=== PATIENT | female | born 1960 | race Caucasian/White ===

== ENCOUNTER 2019-10-25 07:43 | Outpatient (CLI) | payer OTHER, SELFPAY ==
--- NOTE | ~2019-10-25 | DEXA_ITS ---
Bone Density Report Name: Ayana Pennington Age: 59 Sex: Female Ethnicity: White Date of : 1960 Indication: osteopenia; Referring Provider: Whitney Ardon Study: Bone densitometry was performed. Exam Date: October 25, 2019 Accession number: [id number] Bone Density: Region BMD T-score Z-score Classification AP Spine (L1-L4) 0.788 -2.4 -0.9 Osteopenia Femoral Neck (Left) 0.808 -0.4 1.0 Normal Total Hip (Left) 0.864 -0.6 0.4 Normal World Health Organization criteria for BMD impression classify patients as: Normal (T-score at or above -1.0), Osteopenia (T-score between -1.0 and -2.5), or Osteoporosis (T-score at or below -2.5). 10-year Fracture Risk(1): Major Osteoporotic Fracture 5.6% Hip Fracture 0.2% Reported Risk Factors: [place] (), Neck BMD=0.808, BMI=45.9 Input outside FRAX(R) limits. Adjusted to:Boijny=162 kg (1) FRAX(R) Version 3.08. Fracture probability calculated for an untreated patient. Fracture probability may be lower if the patient has received treatment. Previous Exams: Region Exam Age BMD T-score BMD Change BMD Change Date g/cm2 vs Baseline vs Previous AP Spine(L1-L4) 10/25/2019 59 0.788 -2.4 -0.041(-5.0%)# -0.041(-5.0%)# 02/23/2008 47 0.829 -2.0 Total Hip(Left) 10/25/2019 59 0.864 -0.6 -0.038(-4.2%)# -0.038(-4.2%)# 02/23/2008 47 0.901 -0.3 *Denotes significance at 95% confidence level, LSC for AP Spine = 0.022 g/cm2, LSC for Total Hip = 0.027 g/cm2 Clinical Information Provided by Patient: Patient maximum height was 65 Menopause Age: 46 No regular weight bearing exercise Drinks caffeinated beverages Onset of menses at age 11 Number of children 2 Impression: The patient has low bone mass, based on the Total Spine T-score. The patient has an estimated ten-year risk of hip fracture of 0.2% and an estimated ten-year risk of major fracture of 5.6%, based on the WHO FRAX algorithm. No significant bone loss was observed. Discussion: BONE DENSITY IS LOW AT ONE OR MORE SKELETAL SITES. This patient's lowest T-score is low at one or more skeletal sites. It meets the World Health Organization's (WHO) criteria for ?low bone mass? (T-score between -1.0 and -2.5). The patient's 10-year risk of fracture as calculated by FRAX is less than the threshold where pharmacological therapy is recommended by the National Osteoporosis Foundation (NOF). However, all treatment decisions require clinical judgment and consideration of individual patient factors, including patient preferences, co
--- NOTE | ~2019-10-25 | MM_ITS ---
EXAMINATION: MM screening [facility] m HISTORY: Screening mammogram TECHNIQUE: Craniocaudal and mediolateral oblique 3-D tomosynthesis images were obtained and synthetic 2-D images were generated. CAD analysis was submitted and interpreted. COMPARISON: 10/11/2018, 10/27/2017, 04/18/2016 BREAST PARENCHYMAL COMPOSITION: The breasts are almost entirely fatty. FINDINGS: There is a chronic and unchanged asymmetry in the middle third of the left breast on the cr aniocaudal view. There is no evidence of suspicious mass, calcification, or architectural distortion to suggest malignancy in either breast. There has been no suspicious interval change. IMPRESSION: 1. No mammographic evidence of malignancy. 2. Recommend routine screening mammography in one year. BI-RADS Category 2: Benign finding(s). Reviewed, dictated and finalized at location A. [employer]
== END 2019-10-25 07:44 | disposition home or self-care (01) ==
PROVIDERS: PCP Family Medicine; Visit Provider Family Medicine
DX: Z12.31 Encounter for screening mammogram for malignant neoplasm of breast (principal); Z78.0 Asymptomatic menopausal state; M85.88 Other specified disorders of bone density and structure, other site
CPT/HCPCS: 77063; 77067; 77080

== ENCOUNTER 2020-09-12 12:50 | Outpatient (NON) | payer OTHER, SELFPAY ==
[2020-09-12 23:32] LABS: SARS-CoV-2 RNA PCR Negative
== END 2020-09-12 12:51 ==
LOC: ANHCOVIDDT 12:51
PROVIDERS: PCP Family Medicine; Visit Provider Family Medicine
DX: R05 Cough (principal); Z20.822 Contact with and (suspected) exposure to COVID-19
CPT/HCPCS: C9803; U0003

== ENCOUNTER 2022-01-31 13:43 | Outpatient (CLI) | payer OTHER, SELFPAY ==
--- NOTE | ~2022-01-31 | DEXA_ITS ---
Bone Density Report Name: DE MCDANIELS Age: 61 Sex: Female Ethnicity: White Date of : 1960 Indication: osteopenia; height loss; postmenopausal Referring Provider: PATT MAZARIEGOS Study: Bone densitometry was performed. Exam Date: January 31, 2022 Accession number: [id number] Bone Density: Region BMD T-score Z-score Classification AP Spine(L1-L4) 0.877 -1.5 0.1 Osteopenia Femoral Neck (Left) 0.674 -1.6 -0.1 Osteopenia Total Hip (Left) 0.735 -1.7 -0.6 Osteopenia World Health Organization criteria for BMD impression classify patients as: Normal (T-score at or above -1.0), Osteopenia (T-score between -1.0 and -2.5), or Osteoporosis (T-score at or below -2.5). 10-year Fracture Risk(1): Major Osteoporotic Fracture 7.9% Hip Fracture 0.7% Reported Risk Factors: [place] (), Neck BMD=0.674, BMI=36.7 (1) FRAX(R) Version 3.08. Fracture probability calculated for an untreated patient. Fracture probability may be lower if the patient has received treatment. Previous Exams: Region Exam Age BMD T-score BMD Change BMD Change Date g/cm2 vs Baseline vs Previous AP Spine (L1-L4) 01/31/2022 61 0.877 -1.5 0.090 (11.4%)# 0.090 (11.4%)# 10/25/2019 59 0.788 -2.4 Total Hip(Left) 01/31/2022 61 0.735 -1.7 -0.128 (-14.9% -0.128 (-14.9% 10/25/2019 59 0.864 -0.6 *Denotes significance at 95% confidence level, LSC for AP Spine = 0.022 g/cm2, LSC for Total Hip = 0.027 g/cm2 # Denotes dissimilar scan types or analysis methods Clinical Information Provided by Patient: Has used the following medications: Vitamin D Patient maximum height was 65 Menopause Age: 46 Onset of menses at age 11 Number of children 2 Impression: The patient has low bone mass, based on the Left Total Hip T-score. The patient has an estimated ten-year risk of hip fracture of 0.7% and an estimated ten-year risk of major fracture of 7.9%, based on the WHO FRAX algorithm. The BMD for the Total Hip(Left) decreased, changing by -14.9% since the last DXA exam. Discussion: BONE DENSITY IS LOW AT ONE OR MORE SKELETAL SITES. This patient's lowest T-score is low at one or more skeletal sites. It meets the World Health Organization's (WHO) criteria for ?low bone mass? (T-score between -1.0 and -2.5). The patient's 10-year risk of fracture as calculated by FRAX is less than the threshold where pharmacological therapy is recommended by the National Osteoporosis Foundation (NOF). However, all treatment decisions require clinical judgment and consider
--- NOTE | ~2022-01-31 | MM_ITS ---
EXAMINATION: MM screening [facility] HISTORY: Screening mammogram TECHNIQUE: Craniocaudal and mediolateral oblique 3-D tomosynthesis images were obtained and synthetic 2-D images were generated. CAD analysis was submitted and interpreted. COMPARISON: , 10/2018, bilateral screening mammogram examinations BREAST PARENCHYMAL COMPOSITION: The breasts are almost entirely fatty. FINDINGS: There is no evidence of suspicious mass, calcification, or architectural distortion to sugg est malignancy in either breast. There has been no suspicious interval change. IMPRESSION: 1. No mammographic evidence of malignancy. 2. Recommend routine screening mammography in one year. BI-RADS Category 1: Negative Reviewed, dictated and finalized at location A.
== END 2022-01-31 13:44 | disposition home or self-care (01) ==
PROVIDERS: PCP Family Medicine; Visit Provider Obstetrics & Gynecology Gynecology
DX: Z12.31 Encounter for screening mammogram for malignant neoplasm of breast (principal); Z78.0 Asymptomatic menopausal state; M85.88 Other specified disorders of bone density and structure, other site; M85.852 Other specified disorders of bone density and structure, left thigh
CPT/HCPCS: 77063; 77067; 77080

== ENCOUNTER 2022-04-02 08:57 | Outpatient (CLI) | payer OTHER, SELFPAY ==
[2022-04-02 20:07] LABS: Alanine Aminotransferase 40 U/L (6-35); Albumin Level 4.5 g/dL (3.5-5.1); Alkaline Phosphatase 69 U/L (38-126); Anion Gap 8 mmol/L (8-16); Aspartate Amino Transferase 53 U/L (14-36); Bilirubin,Total 0.7 mg/dL (0.2-1.3); Blood Urea Nitrogen 22 mg/dL (7-17); Calcium 9.3 mg/dL (8.4-10.2); Carbon Dioxide 31 mmol/L (22-30); Chloride 103 mmol/L (98-107); Estimated Glomerular Filt Rate > 60; Glucose 91 mg/dL (65-110); Potassium 4.5 mmol/L (3.4-5.0); Sodium 142 mmol/L (137-145)
[2022-04-02 20:56] LABS: Hemoglobin A1C 5.5 % (<5.7)
== END 2022-04-02 08:58 | disposition home or self-care (01) ==
LOC: ANHGOSHLAB 08:59
PROVIDERS: PCP Family Medicine; Visit Provider Family Medicine
DX: R73.03 Prediabetes (principal); I10 Essential (primary) hypertension
CPT/HCPCS: 36415; 80053; 83036

== ENCOUNTER 2022-05-13 07:57 | Outpatient (CLI) | payer OTHER, SELFPAY ==
--- NOTE | 2022-05-13 08:54 | ECG_ITS ---
Measurements Intervals [place] Rate: 52 P: -4 SD: 133 QRS: 27 QRSD: 97 T: 29 QT: 404 QTc: 376 Interpretive Statements SINUS BRADYCARDIA BASELINE ARTIFACT- I, II, III, AVR, AVL, AVF BORDERLINE ECG COMPARED TO ECG 11/30/2018 10:46:36 SINUS BRADYCARDIA NOW PRESENT Electronically Signed On 05-13-2022 9:29:47 CDT by Madi Rivera D.O.
[2022-05-13 09:31] LABS: Basophils Percent Auto 0.6 % (0.2-1.2); Eosinophils Absolute Auto 0.2 K/mm3 (0-0.3); Eosinophils Percent Auto 2.8 % (0-4.4); Hematocrit 45.9 % (37.0-47.0); Hemoglobin 14.4 g/dL (12.0-15.0); Immature Granulocyte Absolute 0.02 K/mm3 (0.00-0.031); Immature Granulocyte Percent A 0.3 % (0-0.5); Lymphocytes Absolute Auto 1.97 K/mm3 (0.9-3.2); Lymphocytes Percent Auto 28.7 % (18.3-44.2); Mean Corpuscular HGB Conc 31.4 g/dl (32-36); Mean Corpuscular Hemoglobin 26.5 pg (26-34); Mean Corpuscular Volume 84.5 fl (80-100); Mean Platelet Volume 10.2 fl (7.4-10.4); Monocytes Absolute Auto 0.5 K/mm3 (0.1-0.6); Monocytes Percent Auto 6.7 % (2.6-8.5); Neutrophils Absolute Auto 4.2 K/mm3 (1.3-6.7); Neutrophils Percent Auto 60.9 % (45.5-73.1); Platelet Count Result 154 k/mm3 (150-375); Red Blood Count 5.43 M/mm3 (4.2-5.4); Red Cell Distribution Width 17.5 % (11.5-14.5); White Blood Count 6.9 K/mm3 (4.5-10.0)
[2022-05-13 09:34] LABS: Appearance Urine Clear (Clear); Bilirubin Urine Negative (Negative); Blood Urine Trace-lysed (Negative); Color Urine Yellow (Yellow); Glucose Urine UA Negative (Negative); Ketones Urine Negative (Negative); Leukocyte Esterase Ur Negative LEU/UL (Negative); Nitrate Urine Negative (Negative); Protein Urine Negative (Negative); Specific Grav Ur 1.015 (1.001-1.035); Urobilinogen Urine 0.2 mg/dL (<2.0)
[2022-05-13 09:42] LABS: Urine Cotinine NEGATIVE
[2022-05-13 09:54] LABS: Add Urine Microscopic? YES
[2022-05-13 09:54] LABS: Partial Thromboplastin Time 27.4 SECONDS (22.3-36.8); Prothrombin Time 13.1 Seconds (11.1-14.7)
[2022-05-13 09:55] LABS: RBC Urine 0-2 /hpf (0-2); Squamous Epithelial Cell Urine Few /hpf (Few)
== END 2022-05-13 07:58 | disposition home or self-care (01) ==
LOC: ANHSURGERY 08:06
PROVIDERS: PCP Family Medicine; Visit Provider Orthopaedic Surgery
DX: Z01.818 Encounter for other preprocedural examination (principal); M16.12 Unilateral primary osteoarthritis, left hip; R00.1 Bradycardia, unspecified
CPT/HCPCS: 80307; 81001; 85025; 85610; 85730; 86850; 86900; 86901; 87081; 93005

== ENCOUNTER 2022-05-21 01:05 | Day surgery (SDC) | payer OTHER, SELFPAY ==
--- NOTE | 2022-05-13 08:03 | PC.NURSE ---
PRE-OP INSTRUCTIONS, PLEASE READ CAREFULLY Report to the Outpatient Waiting Room, entrance under the green pavilion located off [facility], at time _0600_ on date _05/21/22_. OR Time: _0730_. PACK A SMALL OVERNIGHT BAG AND LEAVE IN THE CAR ALONG WITH YOUR WALKER - A mask is required within the hospital. - You and your visitor will be asked to self-screen and do not enter if you have any COVID symptoms. - Only one visitor and NO children visitors are allowed at this time. - The patient visitor is requested to leave or wait in car when not with patient due to restrictions. - VISITING HOURS 10AM-8PM, PARK IN FRONT PARKING LOT AND USE MAIN ENTRANCE Patients may have clear liquids (water, carbonated beverages, clear teas, apple juice) until 3 hours prior to surgery (0430 AM) with a maximum of 20 ounces. - No food from midnight until time of surgery Take the following medications with a SIP of water the morning of surgery: _METOPROLOL_ Medications to discontinue per ANESTHESIA - _ MULTIVITAMIN, VITAMIN D3 & TURMERIC ROOT 3 DAYS PRIOR TO SURGERY, Date to take last dose 05/17/22_ Please no make-up, nail setswana, hairspray, perfume, deodorant, or body powder the day of surgery. No jewelry (including any body piercings) or valuables the day of surgery, leave them at home. Please take a shower or bath the night before, or the morning of, surgery with an antibacterial soap. Wear comfortable, loose fitting clothing. - Jewelry must be removed prior to entering the operating room. Rings and piercings that are not removed may be cut off. - The hospital will not accept responsibility for valuables. - Please leave all valuables, including medications, at home the day of surgery. If you are going home after surgery, a licensed restaurant delivery driver must drive you home. - NO public transportation without another adult. - We recommend that an adult stay with you for 24 hours following discharge. - We also recommend that you do not drive, make important decision, drink alcoholic beverages, or take any drugs that were not prescribed by your health care provider for at least 24 hours after your discharge time. Follow any additional instructions given to you from your surgeon. If you or anyone in your household have experienced Covid symptoms in the past week, please notify your surgeon or the nurse liaison at the phone number below for possible testing. Instructions given to ___PT and asked if any additional questions and then verbalized understanding. Patient advised to call surgeon office or pre surgery nurse liaison [phone] if any additional questions.
[2022-05-13 08:25] VITALS: BP 134/72; PULSE 54; RESP 18; TEMP 36.2; O2SAT 96; BMI 34.7
--- NOTE | 2022-05-20 12:42 | WPDANESEPPF ---
Anes - Initial Pre Proc Eval Procedure: Operation Date: 05/21/22 07:30 Proposed Procedures p Left Total Hip Arthroplasty - Alfie Rodriguez MD Date/Time: 05/20/22 12:42 Surgeon: Alfie Rodriguez MD Pre Op Diagnosis: Lt Hip DJD Patient Data Age: 61 Gender: F Height: 1.63 m Weight: 91.6 kg Last Vital Signs Temp 36.2 C L 05/13/22 08:25 Pulse 54 L 05/13/22 08:25 Resp 18 05/13/22 08:25 BP 134/72 05/13/22 08:25 Pulse Ox 96 05/13/22 08:25 O2 Del Method Room Air 05/13/22 08:25 Allergies Allergy/AdvReac Type Severity Reaction Status Date / Time No Known Allergies Allergy Verified 05/13/22 08:21 Home Medications Medication Instructions Recorded Confirmed Type multivit with 1 tablet PO DAILY 09/26/19 05/13/22 History tcawyaoe-kebk-RU-lutein 8 mg iron-400 mcg-300 mcg tablet (Centrum Silver Women) aspirin 81 mg tablet,delayed 81 mg PO DAILY 09/12/20 05/13/22 History release cholecalciferol (vitamin D3) 50 50 mcg PO QAM 09/12/20 05/13/22 History mcg (2,000 unit) capsule turmeric root extract 500 mg 500 mg PO DAILY 10/02/20 05/13/22 History capsule rosuvastatin 40 mg tablet 40 mg PO QHS 10/03/21 05/13/22 History metoprolol succinate 50 mg 75 mg PO DAILY #135 tabs 12/02/21 05/13/22 Rx tablet,extended release 24 hr icosapent ethyl 1 gram capsule 2 g PO BID #360 caps 12/16/21 05/13/22 Rx (Vascepa) alendronate 70 mg tablet 70 mg PO WEEKLY 04/02/22 05/13/22 History Patient hx anesthesia problems: none Family hx anesthesia problems: none Results Review: All pre-operative results and documents have been reviewed as part of the pre-operative evaluation. [facility] Past Medical History Medical History (Updated 05/13/22 @ 14:02 by Renee Ferrell, RT(R)) Abnormality of heart beat CAD in [place] artery Decreased hearing of left ear Dyslipidemia Ear pain Edema of both lower legs due to peripheral venous insufficiency Essential (primary) hypertension GERD without esophagitis Hearing loss High cholesterol History of adverse reaction to anesthesia Hypertension TRINI (obstructive sleep apnea) Osteopenia PVC (premature ventricular contraction) Raynaud's disease without gangrene Unspecified osteoarthritis, unspecified site Vitamin D deficiency Wears glasses Surgical History Surgical History (Updated 05/13/22 @ 14:02 by Renee Ferrell RT(R)) History of ear surgery History of tonsillectomy History of total right hip replacement (~12/2018) History of tympanoplasty (~2010) Left Family History Family History (Updated 05/13/22 @ 14:02 by Renee Ferrell RT(R)) Father Hypertension Family history of arthritis Other High cholesterol Social History Social History (Updated 05/13/22 @ 14:03 by Renee Ferrell RT(R)) Smoking packs per day: 1.5 Smoking cigarettes per day: 30.0 Years smoked: 15 Smoking pack-years: 22.50 Smoking status: Former smoker Tobacco type: cigarettes Second hand tobacco smoke exposure: No Smoking end date: 01/06/88 Additional smoking assessment comments: PT DENIES ALL FORMS OF TABACCO USE Alcohol intake: never Alcohol use details: STATES MAYBE 1-3 GLASSES WINE A YEAR Substance use: never Substance use type: does not use Living arrangements: with family Additional living arrangements comments: PT'S MOTHER AND DAUGHTER LIVES WITH HER Gender identity (if verbalized by the patient): Female Spiritual care concerns: No Anes - Eval Final PreProcedure Day of Procedure 05/20/22 12:42 Patient weight: obese Heart: regular rate and rhythm Lungs: clear to auscultation Airway: Mallampati scale class III and special considerations (small chin) Neurological: alert and oriented Last oral intake: >/= 8 hours ASA classification: III Emergent: no Anesthetic plan: proceed Anesthesia type and monitoring: general ETT and standard monitoring Results Review: All pre-operative results and
[2022-05-21] VITALS (13 sets, daily range): BP systolic 99–131; BP diastolic 49–79; PULSE 45–71; RESP 12–16; TEMP 36.1–36.4; O2SAT 95–100
--- NOTE | ~2022-05-21 | XR_ITS ---
EXAMINATION: XR hip LT min 2V DATE: 05/21/2022 10:51 INDICATION: Total left hip arthroplasty. Postop. TECHNIQUE: 2 views of left hip were obtained. COMPARISON: Left hip radiographs 05/01/2022 FINDINGS: There is a total left hip arthroplasty in near-anatomic alignment. No fracture. There are f oci of gas in the soft tissues, consistent with recent surgery. IMPRESSION: 1. Total left hip arthroplasty in near-anatomic alignment. Reviewed, dictated and finalized at location A.
[2022-05-21] MEDS: LACTATED RINGERS 1,000 ML 30 ML IV CONT ×2 (07:00→10:37)
[2022-05-21] MEDS: TRANEXAMIC ACID 1,000MG/ISO100 1,000 MG/100 ML BAG 200 MG IVPB (07:00)
[2022-05-21] MEDS: ACETAMINOPHEN 500 MG TABLET 1000 MG PO (07:00)
--- NOTE | 2022-05-21 07:13 | WPDHPUPDATE1 ---
History and Physical Update Update Date/Time: 05/21/22 07:13 History and Physical has been reviewed, including an updated exam of the patient. There are NO changes in the patient's condition. Risks, benefits, and alternatives have been discussed and questions answered. Patient agrees to proceed with procedure.
[2022-05-21] MEDS: ceFAZolin 2 GM/D5W 50 ML 2 GM/50 ML BAG IVPB ×2 (07:30→15:28)
[2022-05-21] MEDS: TRANEXAMIC ACID 1,000 MG/10 ML AMPUL 1000 MG IV PUSH (09:38)
--- NOTE | 2022-05-21 10:59 | W.PM.PROC2 ---
Procedure Note - Detailed Date of Procedure 05/21/22 Pre-op Diagnosis Lt Hip DJD Post-op Diagnosis Same Procedure Performed L DANIEL Surgeon Alfie Rodriguez MD Anesthesia General Description of Procedure THE PATIENT WAS TAKEN TO THE OPERATING ROOM IN STABLE CONDITION AND WAS PLACED IN THE LATERAL DECUBITUS AND THE LEFT LOWER EXTREMITY WAS PREPPED AND DRAPED IN THE STERILE FASHION. INCISION WAS MADE IN THE POSTERIOR LATERAL SIDE OF THE HIP, DOWN TO THE FASCIA LAYER. THE FASCIA WAS INCISED. THE HIP WAS EXPOSED. THE SHORT EXTERNAL ROTATORS WERE EXPOSED. THE SCIATIC NERVE WAS IDENTIFIED. INCISION WAS MADE THROUGH THE SHORT EXTERNAL ROTATORS AND THE CAPSULE OF THE HIP JOINT. THE HIP WAS DISLOCATED. AN OSTEOTOMY WAS MADE TO THE FEMORAL NECK ABOUT 1 CM PROXIMAL TO THE LESSER TROCHANTER. THE ACETABULUM WAS EXPOSED. THERE WAS SEVERE DJD SEEN. BEGINNING WITH A 44 REAMER THE ACETABULUM WAS REAMED TO 49 MM. A 50 MM TRIAL WAS PLACED IN 35 DEG OF ABDUCTION AND ANTEVERSION WAS IN ALIGNMENT WITH THE TRANS ACETABULAR LIGAMENT. THE FIT WAS EXCELLENT. THE TRIAL WAS REMOVED. A 50 MM BIOMET G7 COMPONENT WAS THEN TAPPED IN TO PLACE IN 35 DEG OF ABDUCTION AND ANTEVERSION IN ALIGNMENT WITH THE TRANSVERSE ACETABULAR LIGAMENT. THE FIT WAS EXCELLENT. THE ACETABULAR LINER WAS PLACED AND CHECKED FOR STABILITY. NEXT THE FEMUR WAS PREPARED WITH INITIAL CANAL FINDER THEN SEQUENTIAL BROACHING WITH A TAPERLOC HIP SYSTEM, UNTIL A 6 BROACH FIT WELL IN 15 OF ANTEVERSION. A 0 STANDARD OFFSET NECK WITH 36 MM HEAD TRIAL WAS PLACED. THE SHUCK TEST WAS EXCELLENT AND THE STABILITY IN FLEXION AND ROTATION WAS EXCELLENT. LEG LENGTHS WERE GROSSLY EQUAL. TRIALS WERE REMOVED. A BIOMET TAPERLOC 6 STEM WAS PLACED WITH A STANDARD OFFSET NECK. THE FIT WAS EXCELLENT IN 15 DEG OF ANTEVERSION. A 0 CERAMIC 36 MM FEMORAL CERAMIC HEAD WAS PLACED. THE HIP WAS TRIALED AND THE STABILITY WAS EXCELLENT WERE THE LEG LENGTHS AND THE SHUCK TEST. THE WOUND WAS IRRIGATED WITH STERILE BETADINE AND WATER FOR 3 MIN. THEN WASHED AGAIN. THE CAPSULE AND THE EXTERNAL ROTATORS WERE APPROXIMATED WITH NUMBER 1 VICRYL. THE FASCIA WITH No 2 QUIL AND THE SUB CUTANEOUS LAYER WITH 2-0 ABSORBABLE SUTURE WITH A RUNNING 3-0 SUBCUTICULAR LAYER WELL. DERMABOND WAS PLACED AND STERILE DRESSING WAS APPLIED. PATIENT WAS PLACED BACK ON TO THE SUPINE POSITION AND WAS EXTUBATED Estimated Blood Loss 100 Complications No immediate complications Condition Stable Disposition PACU
[2022-05-21] MEDS: KETOROLAC 15 MG/ML VIAL (*BKC) IV PUSH ×2 (13:11→19:17)
[2022-05-21] MEDS: HYDROcodone/acetaminophen (*CRX) 7.5-325 MG TABLET 1 TAB PO (15:30)
[2022-05-21] MEDS: OMEGA 3 POLYUNSAT FATTY ACIDS 1 GM CAP 2 GM PO (17:30)
[2022-05-21] MEDS: SENNA/DOCUSATE SODIUM TABLET 2 TAB PO (17:30)
[2022-05-21] MEDS: ASPIRIN 325 MG ENTERIC TABLET PO (21:57)
[2022-05-21] MEDS: ROSUVASTATIN 10 MG TABLET 40 MG PO (21:57)
[2022-05-21] MEDS: WATER FOR IRRIGATION, STERILE 1,000 ML BOTTLE 1000 ML (22:00)
[2022-05-21] MEDS: ACETAMINOPHEN 325 MG TABLET 650 MG PO (22:04)
[2022-05-22] VITALS (8 sets, daily range): BP systolic 100–122; BP diastolic 41–58; PULSE 52–66; RESP 16–18; TEMP 36.3–36.8; O2SAT 99–100
[2022-05-22] MEDS: KETOROLAC 15 MG/ML VIAL (*BKC) IV PUSH ×3 (00:16→12:55)
[2022-05-22] MEDS: ceFAZolin 2 GM/D5W 50 ML 2 GM/50 ML BAG IVPB ×2 (00:16→06:39)
[2022-05-22 05:46] LABS: Basophils Percent Auto 0.1 % (0.2-1.2); Eosinophils Percent Auto 0.1 % (0-4.4); Hematocrit 35.6 % (37.0-47.0); Hemoglobin 11.3 g/dL (12.0-15.0); Immature Granulocyte Absolute 0.08 K/mm3 (0.00-0.031); Immature Granulocyte Percent A 0.6 % (0-0.5); Lymphocytes Absolute Auto 1.39 K/mm3 (0.9-3.2); Lymphocytes Percent Auto 10.3 % (18.3-44.2); Mean Corpuscular HGB Conc 31.7 g/dl (32-36); Mean Corpuscular Hemoglobin 26.7 pg (26-34); Monocytes Absolute Auto 0.9 K/mm3 (0.1-0.6); Monocytes Percent Auto 6.8 % (2.6-8.5); Neutrophils Percent Auto 82.1 % (45.5-73.1); Platelet Count Result 156 k/mm3 (150-375); Red Blood Count 4.24 M/mm3 (4.2-5.4); Red Cell Distribution Width 16.7 % (11.5-14.5); White Blood Count 13.4 K/mm3 (4.5-10.0)
[2022-05-22 06:09] LABS: Anion Gap 11 mmol/L (8-16); Blood Urea Nitrogen 20 mg/dL (7-17); Calcium 8.1 mg/dL (8.4-10.2); Carbon Dioxide 22 mmol/L (22-30); Chloride 103 mmol/L (98-107); Estimated CRCL calculation 61 ml/min; Estimated Glomerular Filt Rate > 60; Glucose 113 mg/dL (65-110); Potassium 3.7 mmol/L (3.4-5.0); Sodium 136 mmol/L (137-145)
[2022-05-22] MEDS: OMEGA 3 POLYUNSAT FATTY ACIDS 1 GM CAP 2 GM PO ×2 (08:20→16:27)
[2022-05-22] MEDS: polyethylene glycoL 3350 17 GM POWD.PACK PO (08:20)
[2022-05-22] MEDS: ASPIRIN 325 MG ENTERIC TABLET PO (08:20)
[2022-05-22] MEDS: SENNA/DOCUSATE SODIUM TABLET 2 TAB PO ×2 (08:20→16:27)
[2022-05-22] MEDS: CHOLECALCIFEROL 1,000 UNITS TABLET 2000 UNITS PO (08:20)
--- NOTE | 2022-05-22 09:46 | WPDANESPN ---
Anes - Prog Note Post-Op Date/Time: 05/22/22 09:46 Cardiovascular status: normal Respiratory status: normal Airway patency: baseline Mental status: baseline Post-Op hydration status: normal Vital Signs: Last Vital Signs Temp 36.4 C 05/22/22 05:19 Pulse 52 L 05/22/22 08:16 Resp 16 05/22/22 08:16 BP 100/41 L 05/22/22 08:16 Pulse Ox 100 05/22/22 08:16 O2 Del Method Room Air 05/22/22 08:00 O2 Flow Rate 6 05/21/22 11:05 Pain Score (VAS): 1 I/O: Intake & Output 05/21/22 05/22/22 05/22/22 23:59 07:59 15:59 Intake Total 870 400 Output Total 600 400 Balance 270 0 Laboratory Tests 05/22/22 05:06 05/22/22 05:06 05/22/22 05/22/22 05:06 05:06 WBC 13.4 H RBC 4.24 Hgb 11.3 L D Hct 35.6 L MCV 84.0 MCH 26.7 MCHC 31.7 L RDW 16.7 H Plt Count 156 MPV 11.0 H Immature Gran % (Auto) 0.6 H Neut % (Auto) 82.1 H Lymph % (Auto) 10.3 L Mclennan % (Auto) 6.8 Eos % (Auto) 0.1 Baso % (Auto) 0.1 L Lymph # (Auto) 1.39 Mclennan # (Auto) 0.9 H Eos # (Auto) 0.0 Baso # (Auto) 0.0 Abs Immat Gran (auto) 0.08 H Absolute Neuts (auto) 11.0 H Absolute Nucleated RBC 0.0 Nucleated RBC % 0.0 Sodium 136 L Potassium 3.7 Chloride 103 Carbon Dioxide 22 Anion Gap 11 BUN 20 H Creatinine 0.90 Estim Creat Clear Calc 61 Estimated GFR > 60 Glucose 113 H Calcium 8.1 L Post-procedural complaints: none Patient Feedback: Patient satisfied with anesthetic care.
--- NOTE | 2022-05-22 09:50 | PM.PNORT ---
Progress Note: A&P Assessment and Plan (1) S/P total hip arthroplasty: Code(s): Z96.649 - Presence of unspecified artificial hip joint Status: Acute Assessment and Plan: POD #1 : Left DANIEL Continue PT/OT. WBAT. Walker. HIGH FALL RISK. Continue pain control. Ice hip. Protect skin. DVT prophylaxis with Aspirin- full strength x28 days. SCDs. Incentive Spirometry Use reviewed. Monitor Dressing. Change prior to discharge. Bowel Regimen. Dispo: Home with Home Health pending progress with PT/OT and improvement in BP. Plan Reviewed labs, vitals and hypotension/bradycardia with Dr. Rodriguez. Advised to continue hold of medication. Denied need for hospitalist consult. Will await his clearance for discharge. Subjective Subjective Date/Time Seen: 05/22/22 09:50 Post Op day: 1 Principal diagnosis: Left DANIEL Interval history: POD #1: Left DANIEL Patient doing well. Mild pain, well controlled. Working well with PT/OT. Review of Systems Constitutional: Constitutional: Denies chills, Denies fatigue, Denies fever(s), Denies night sweats and Denies weakness Cardiovascular: Cardiovascular: Denies chest pain, Denies lightheadedness, Denies palpitations and Denies dyspnea Respiratory: Respiratory: Denies cough, Denies dyspnea and Denies wheezing Gastrointestinal: Gastrointestinal: Denies abdominal pain, Denies diarrhea, Denies nausea and Denies vomiting Musculoskeletal: Musculoskeletal: Reports arthralgias (left hip ), Reports joint swelling (left hip ) and Denies numbness Neurologic: Denies numbness and Denies weakness Endocrine: Endocrine: Denies fatigue and Denies palpitations Allergic/Immunologic: Allergic/Immunologic: Denies wheezing Exam Const: General: comfortable and no acute distress Orientation/consciousness: patient oriented x3 Limitations: no limitations Resp: Effort & Inspection: normal respiratory effort Cardio: Rate: regular rate Rhythm: regular rhythm GI: Inspection: non-distended Skin: General skin exam: normal color Wounds: wounds noted (incision left hip C/D/I ) Neuro: General: patient oriented x3 Extrem: Left lower extremity: hip/thigh Details: tenderness Location: of the hip Location: laterally and anteriorly, swelling (thigh soft ) Location: of the hip (lateral. ), abnormal ROM (limitations with internal/external rotation and flexion/extension due to recent surgical intervention ) and other (incision lateral hip c/d/i. ), knee Details: normal to inspection and normal ROM; no tenderness and no swelling, lower leg (Negative Karine's Sign ) Details: no edema, ankle (+ankle dorsiflexion/plantarflexion ) Details: normal to inspection, no edema and normal ROM; no tenderness, no swelling and no warmth and foot Details: normal capillary refill, toes with normal ROM, vascular exam Details: dorsalis pedis pulse present and motor-sensory exam light-touch normal in all toes; no tenderness, no ecchymosis and no crepitus Psych: Mental Status: mental status grossly normal Affect: normal affect Objective Data Vital Signs Vital Signs: Vital Signs - 24 hr 05/21/22 10:37 05/21/22 10:50 05/21/22 11:05 Temperature 36.3 C L Pulse Rate 60 49 L 48 L Respiratory Rate 14 16 16 Blood Pressure 118/69 99/64 L 116/79 Pulse Oximetry 99 97 100 Oxygen Delivery Simple Face Mask Simple Face Mask Simple Face Mask Oxygen Flow Rate 6 6 6 05/21/22 11:05 05/21/22 11:20 05/21/22 11:35 Temperature Pulse Rate 45 L 47 L Respiratory Rate 14 12 Blood Pressure 110/53 L 126/76 Pulse Oximetry 100 100 100 Oxygen Delivery Room Air Room Air Room Air Oxygen Flow Rate 05/21/22 11:50 05/21/22 12:30 05/21/22 12:19 Temperature 36.2 C L Pulse Rate 48 L 50 L Respiratory Rate 12 14 Blood Pressure 131/67 121/60 Pulse Oximetry 98 98 Oxygen Delivery Room Air Room Air Oxygen Flow Rate 05/21/22 12:38 05/21/22 13:31 05/21/22 14:32 Temperature 36.1 C L 36.4 C L 36.2 C L Pulse Rate 53 L
--- NOTE | 2022-05-22 15:44 | PM.DS ---
DS: Admitting Diagnosis Discharge Date 05/22/22 Admitting Diagnosis Left Hip DJD DS: Discharge Diagnosis Discharge Diagnosis (1) S/P total hip arthroplasty: Code(s): Z96.649 - Presence of unspecified artificial hip joint Status: Acute Assessment and Plan: POD #1 : Left DANIEL Continue PT/OT. WBAT. Walker. HIGH FALL RISK. Continue pain control. Ice hip. Protect skin. DVT prophylaxis with Aspirin- full strength x28 days. SCDs. Incentive Spirometry Use reviewed. Monitor Dressing. Change prior to discharge. Bowel Regimen. Dispo: Home with Home Health pending progress with PT/OT and improvement in BP. Plan Reviewed labs, vitals and hypotension/bradycardia with Dr. oRdriguez. Advised to continue hold of medication. Denied need for hospitalist consult. Will await his clearance for discharge. DS: Summary Hospital Course Reason for hospitalization: Left DANIEL Hospital Course: 61 year old female admitted s/p DANIEL for postoperative medical management, pain control and mobilization with PT/OT. Patient progressed well with PT/O on POD #1. She did have hypotension postoperatively. Metoprolol dose held on POD #1. Orthostatics checked, negative. Patient to recheck BP at home tomorrow before dose. If still low, advised patient to contact PCP for further direction. Pain well controlled. They have been cleared to be discharged home with home health at this time. Follow up planned for 3 weeks in the outpatient orthopedic clinic with Dr. Rodriguez. Status at Discharge Functional status at discharge: uses cane/walker Overall status at discharge: patient is not back to baseline Time Spent with Patient Time attestation: Total time spent providing and/or coordinating discharge services: Exam Const: General: comfortable and no acute distress Orientation/consciousness: patient oriented x3 Limitations: no limitations Resp: Effort & Inspection: normal respiratory effort Cardio: Rate: regular rate Rhythm: regular rhythm GI: Inspection: non-distended Skin: General skin exam: normal color Wounds: wounds noted (incision left hip C/D/I ) Neuro: General: patient oriented x3 Extrem: Left lower extremity: hip/thigh Details: tenderness Location: of the hip Location: laterally and anteriorly, swelling (thigh soft ) Location: of the hip (lateral. ), abnormal ROM (limitations with internal/external rotation and flexion/extension due to recent surgical intervention ) and other (incision lateral hip c/d/i. ), knee Details: normal to inspection and normal ROM; no tenderness and no swelling, lower leg (Negative Karine's Sign ) Details: no edema, ankle (+ankle dorsiflexion/plantarflexion ) Details: normal to inspection, no edema and normal ROM; no tenderness, no swelling and no warmth and foot Details: normal capillary refill, toes with normal ROM, vascular exam Details: dorsalis pedis pulse present and motor-sensory exam light-touch normal in all toes; no tenderness, no ecchymosis and no crepitus Psych: Mental Status: mental status grossly normal Affect: normal affect DS: Data Data Completed and Pending Labs on day of discharge: Labs from last 24 hours 05/22/22 05/22/22 05:06 05:06 WBC 13.4 H RBC 4.24 Hgb 11.3 L D Hct 35.6 L MCV 84.0 MCH 26.7 MCHC 31.7 L RDW 16.7 H Plt Count 156 MPV 11.0 H Immature Gran % (Auto) 0.6 H Neut % (Auto) 82.1 H Lymph % (Auto) 10.3 L [place] % (Auto) 6.8 Eos % (Auto) 0.1 Baso % (Auto) 0.1 L Lymph # (Auto) 1.39 [place] # (Auto) 0.9 H Eos # (Auto) 0.0 Baso # (Auto) 0.0 Abs Immat Gran (auto) 0.08 H Absolute Neuts (auto) 11.0 H Absolute Nucleated RBC 0.0 Nucleated RBC % 0.0 Sodium 136 L Potassium 3.7 Chloride 103 Carbon Dioxide 22 Anion Gap 11 BUN 20 H Creatinine 0.90 Estim Creat Clear Calc 61 Estimated GFR > 60 Glucose 113 H Calcium 8.1 L Discharge Plan Discharge Patient Disposition: Home Health Service Discharge
== END 2022-05-22 16:50 | disposition home health service (06) ==
LOC: ANHSURGERY 06:23 → ANH2MED 12:08
PROVIDERS: PCP Family Medicine; Visit Provider Orthopaedic Surgery
PROC: (CPT 27130; principal; 2022-05-21 07:30)
DX: M16.12 Unilateral primary osteoarthritis, left hip (principal); I25.10 Atherosclerotic heart disease of native coronary artery without angina pectoris; I10 Essential (primary) hypertension; E78.5 Hyperlipidemia, unspecified; K21.9 Gastro-esophageal reflux disease without esophagitis; G47.33 Obstructive sleep apnea (adult) (pediatric); I73.00 Raynaud's syndrome without gangrene; M85.80 Other specified disorders of bone density and structure, unspecified site; E55.9 Vitamin D deficiency, unspecified; I49.3 Ventricular premature depolarization; Z79.82 Long term (current) use of aspirin; Z87.891 Personal history of nicotine dependence; E66.9 Obesity, unspecified; Z68.34 Body mass index [BMI] 34.0-34.9, adult
CPT/HCPCS: 27130; 36415; 73502; 80048; 80307; 81001; 85025; 85610; 85730; 86850; 86900; 86901; 87081; 93005; 97110; 97116; 97161; 97165; 97530; 97535; A9270; C1776; J0171; J0330; J0690; J1100; J1170; J1885; J2250; J2270; J2405; J2704; J2710; J2795; J3010; J7120

== ENCOUNTER 2022-08-01 09:58 | Outpatient (CLI) | payer OTHER, SELFPAY ==
--- NOTE | 2022-08-01 11:00 | NEURO_ITS ---
Impression: # History of bilateral hand numbness. # Mild right carpal tunnel syndrome. # Early changes suggestive of evolving carpal tunnel syndrome on the left. # Normal needle/EMG exam. # Clinical correlation recommended. Motor Nerve Conduction Upper Extremities Median Nerve Conduction Velocity (m/sec) Terminal Latency (msec) Response Voltage(mV) Elbow-Wrist Wrist Elbow Wrist Right 59 4.1 5 8 Left 58 3.9 3 6 Ulnar Nerve Conduction Velocity (m/sec) Terminal Latency (msec) Response Voltage(mV) Above Elbow Below Elbow Wrist Above Elbow Below Elbow Wrist Right 50 59 2.7 6 5 7 Left 49 59 2.8 4 4 6 F-Wave Latency Median (ms) Ulnar (ms) Right 28.3 28.9 Left 28.3 28.0 Sensory Nerve Conduction Upper Extremities Median Nerve Stimulation Terminal Latency (msec) Wrist/Digit Response Voltage (uV) Wrist Right 4.0/4.2 53/31 Left 3.7/3.8 86/90 Ulnar Nerve Stimulation Terminal Latency (msec) Wrist/Digit Response Voltage (uV) Wrist Right 3.0 26 Left 2.8 13 Radial Nerve Terminal Latency (msec) Response Voltage(mV) Right 1.9 55 Left 2.0 56 Left Right Muscles Examined Fibrillation Fasciculation Scarcity Voltage Duration Left Right Left Right Left Right Left Right Left Right Deltoid Biceps X X Brachioradialis Triceps X X Pronator Teres X X Ext Indicis X X Ext Digitorum X X Abd Poll Brev X X 1st Dorsal Interosseus Paraspinals MTDD
== END 2022-08-01 09:59 | disposition home or self-care (01) ==
LOC: ANHNEURO 10:00
PROVIDERS: PCP Family Medicine; Visit Provider Family Medicine
DX: R20.0 Anesthesia of skin (principal); G56.03 Carpal tunnel syndrome, bilateral upper limbs
CPT/HCPCS: 95886; 95911

== ENCOUNTER 2023-02-03 07:16 | Outpatient (CLI) | payer BC, SELFPAY ==
--- NOTE | ~2023-02-03 | MM_ITS ---
EXAMINATION: MM screening [place] BI w luis m HISTORY: Screening mammogram TECHNIQUE: Craniocaudal and mediolateral oblique 3-D tomosynthesis images were obtained and synthetic 2-D images were generated. CAD analysis was submitted and interpreted. COMPARISON: 01/31/2022, 10/25/2019, 10/11/2018 BREAST PARENCHYMAL COMPOSITION:The breasts are almost entirely fatty FINDINGS: There is apparent extensive, somewhat mild skin thickening of the right breast. No suspicio us mass, calcification, or architectural distortion are identified in either breast otherwise to sugg est malignancy. IMPRESSION: No mammographic evidence of malignancy. Mild diffuse skin thickening of the right breast. As there are no other findings to suggest malignanc y, this is presumably on a benign basis. BI-RADS Category 2: Benign finding(s). Reviewed, dictated and finalized at [facility]. IMPRESSION: No mammographic evidence of malignancy. Mild diffuse skin thickening of the right breast. As there are no other finding s to suggest malignancy, this is presumably on a benign basis. BI-RADS Category 2: Benign finding(s).
== END 2023-02-03 07:17 | disposition home or self-care (01) ==
LOC: ANHIMG 07:18
PROVIDERS: PCP Family Medicine; Visit Provider Obstetrics & Gynecology Gynecology
DX: Z12.31 Encounter for screening mammogram for malignant neoplasm of breast (principal)
CPT/HCPCS: 77063; 77067

== ENCOUNTER 2023-09-21 14:47 | Emergency (ER) | payer OTHER, SELFPAY ==
[2023-09-21 15:00] VITALS: BP 141/77; PULSE 64; RESP 16; TEMP 36.4; O2SAT 100
[2023-09-21 15:08] VITALS: BP 141/77; PULSE 64; RESP 16; TEMP 36.4; O2SAT 100
--- NOTE | 2023-09-21 15:18 | ED.WOUNDLAC ---
HPI - Wound/Laceration General Chief Complaint: Wound/Laceration Stated Complaint: Cut finger Time Seen by Provider: 09/21/23 15:18 Source: patient, RN notes reviewed and old records reviewed Mode of arrival: ambulatory Limitations: no limitations History of Present Illness HPI narrative: 63-year-old female who presents to [facility] with complaints of a laceration to her left thumb which occurred prior to arrival when she was using a cork cutter to cut binding for a quilt hat she is making and she cut her thumb. Patient has 1 cm laceration to the proximal anterior aspect of her left thumb with bleeding controlled, full mobility of thumb noted with no tingling or numbness verbalized. Patient's tetanus is up to date. Location: other (left anterior proximal thumb) Place: home Patient tetanus UTD: Yes Treatments prior to arrival: bandage Related Data Home Medications Medication Instructions Recorded Confirmed fbywbira-jzwb-vudt 8 mg-folic 400 1 tablet PO DAILY 09/26/19 09/21/23 mcg-K 50 mcg-lutein 300 mcg tablet (Centrum Silver Women) aspirin 81 mg tablet,delayed 81 mg PO DAILY 09/12/20 09/21/23 release cholecalciferol (vitamin D3) 50 50 mcg PO QAM 09/12/20 09/21/23 mcg (2,000 unit) capsule rosuvastatin 40 mg tablet 40 mg PO QHS 10/03/21 09/21/23 alendronate 70 mg tablet 70 mg PO WEEKLY 04/02/22 09/21/23 rneucoxj-tsvvdhfqw-ndximsyv 3.5 1 drp EACH EYE HS 09/21/23 09/21/23 mg/mL-10,000 unit/mL-0.1% eye drops Allergies Allergy/AdvReac Type Severity Reaction Status Date / Time No Known Allergies Allergy Verified 09/21/23 15:06 Review of Systems Review of Systems: CONSTITUTIONAL: Denies fever, chills, or sweats. CARDIOVASCULAR: Denies chest pain, palpitations, or edema. RESPIRATORY: Denies cough or dyspnea. SKIN: Reports laceration to her left proximal anterior thumb area while cutting binding for a quilt she is making. MUSCULOSKELETAL: Denies musculoskeletal pain NEUROLOGIC: Denies numbness, or weakness. All systems reviewed & are unremarkable except as noted in HPI and below PMFSH Past Medical History Medical History CAD in [place] artery Decreased hearing of left ear Dyslipidemia Edema of both lower legs due to peripheral venous insufficiency Essential (primary) hypertension GERD without esophagitis Hearing loss History of adverse reaction to anesthesia TRINI (obstructive sleep apnea) Osteopenia PVC (premature ventricular contraction) Raynaud's disease without gangrene Unspecified osteoarthritis, unspecified site Vitamin D deficiency Vomiting Wears glasses Surgical History Surgical History History of ear surgery (~2005) History of tonsillectomy (Unknown) History of total left hip arthroplasty (~05/2022) History of total right hip replacement (~12/2018) History of tympanoplasty (~2010) Left Family History Family History Father Hypertension Family history of arthritis Other High cholesterol Social History Social History Smoking packs per day: 1 Smoking cigarettes per day: 20.0 Years smoked: 15 Smoking pack-years: 15.00 Smoking status: Former smoker Tobacco type: cigarettes Second hand tobacco smoke exposure: No Smoking end date: 01/06/88 Additional smoking assessment comments: PT DENIES ALL FORMS OF TABACCO USE Alcohol intake: never Alcohol use details: STATES MAYBE 1-3 GLASSES WINE A YEAR Substance use: never Substance use type: does not use Lack of Transportation: No Lack of Food: Never True Current Housing: I Have Housing Concerned About Future Housing: No Difficulty Paying Gas/Electric Bills: No Difficulty Paying for Meds: No Currently Unemployed: No Education: Master's Degree or Higher Difficulty w/ Childcare
[2023-09-21] MEDS: LIDOCAINE HCL 1% LOCAL INJ 2 ML AMPUL INFILTRATE (15:24)
== END 2023-09-21 15:44 | disposition home or self-care (01) ==
PROVIDERS: Emergency Provider Registered Nurse; PCP Family Medicine
DX: S61.012A Laceration without foreign body of left thumb without damage to nail, initial encounter (principal); W27.8XXA Contact with other nonpowered hand tool, initial encounter; Z87.891 Personal history of nicotine dependence; I25.10 Atherosclerotic heart disease of native coronary artery without angina pectoris; E78.5 Hyperlipidemia, unspecified; K21.9 Gastro-esophageal reflux disease without esophagitis; M85.80 Other specified disorders of bone density and structure, unspecified site; I73.00 Raynaud's syndrome without gangrene; M19.90 Unspecified osteoarthritis, unspecified site; Z96.643 Presence of artificial hip joint, bilateral; E55.9 Vitamin D deficiency, unspecified; Z79.82 Long term (current) use of aspirin
CPT/HCPCS: 12001; 99212; G0463

== ENCOUNTER 2023-10-28 00:51 | Day surgery (SDC) | payer OTHER, SELFPAY ==
[2023-09-30 08:24] VITALS: BMI 30.8
--- NOTE | 2023-10-26 09:03 | SUR.PREOP ---
Patient called regarding upcoming procedure. Reviewed preop instructions, appointment times, and procedure prep.
--- NOTE | 2023-10-27 18:16 | PM.HPGS ---
History of Present Illness History of Present Illness Consent: Risks, benefits, and alternatives have been discussed and questions answered. Patient agrees to proceed with procedure. Chief complaint: abdominal pain,vomiting Narrative: Ayana Pennington is a 63 year old female Who has been bothered by episodes of postprandial upper abdominal pain with vomiting for the past year. She can usually tell when this is going to happen. The pain will last for about 2 hours and is always in the epigastric and subxiphoid area, a tight squeezing discomfort. Review of Systems Review of Systems: All systems reviewed & are unremarkable except as noted in HPI and below PMFSH Past Medical History Medical History CAD in [place] artery Decreased hearing of left ear Dyslipidemia Edema of both lower legs due to peripheral venous insufficiency Essential (primary) hypertension GERD without esophagitis Hearing loss History of adverse reaction to anesthesia TRINI (obstructive sleep apnea) Osteopenia PVC (premature ventricular contraction) Raynaud's disease without gangrene Vitamin D deficiency Vomiting Wears glasses Surgical History Surgical History History of ear surgery (~2005) left History of tonsillectomy (Unknown) History of total left hip arthroplasty (~05/2022) History of total right hip replacement (~12/2018) History of tympanoplasty (~2010) Left Family History Family History Father Hypertension Family history of arthritis Other High cholesterol Social History Social History Social History: Caffeine-decaf coffee Smoking packs per day: 1 Smoking cigarettes per day: 20.0 Years smoked: 15 Smoking pack-years: 15.00 Smoking status: Former smoker Tobacco type: cigarettes Second hand tobacco smoke exposure: No Smoking end date: 09/07/87 Additional smoking assessment comments: PT DENIES ALL FORMS OF TABACCO USE Alcohol intake: current Alcohol use details: STATES MAYBE 1-3 GLASSES WINE A YEAR Substance use: never Substance use type: does not use Lack of Transportation: No Lack of Food: Never True Current Housing: I Have Housing Concerned About Future Housing: No Difficulty Paying Gas/Electric Bills: No Difficulty Paying for Meds: No Currently Unemployed: No Education: Master's Degree or Higher Difficulty w/ Childcare or Family Care: No Living arrangements: alone Additional living arrangements comments: PT'S MOTHER AND DAUGHTER LIVES WITH HER Occupation/Education: occupation Gender identity (if verbalized by the patient): Female Sexual Orientation (if Verbalized by the Patient): Straight or Heterosexual Spiritual care concerns: No Agree to blood products: Yes Meds Home Medications and Allergies Home Medications Medication Instructions Recorded Confirmed Type fxtgzazw-bdwe-yjna 8 mg-folic 400 1 tablet PO DAILY 09/26/19 10/28/23 History mcg-K 50 mcg-lutein 300 mcg tablet (Centrum Silver Women) aspirin 81 mg tablet,delayed 81 mg PO DAILY 09/12/20 10/28/23 History release cholecalciferol (vitamin D3) 50 50 mcg PO QAM 09/12/20 10/28/23 History mcg (2,000 unit) capsule rosuvastatin 40 mg tablet 40 mg PO QHS 10/03/21 10/28/23 History alendronate 70 mg tablet 70 mg PO WEEKLY 04/02/22 10/28/23 History metoprolol succinate 25 mg 25 mg PO DAILY #90 tabs 05/01/23 10/28/23 Rx tablet,extended release 24 hr pppxyzyk-iuiqywwuv-ufxrvlqg 3.5 1 drp EACH EYE HS 09/21/23 10/28/23 History mg/mL-10,000 unit/mL-0.1% eye drops Allergies Allergy/AdvReac Type Severity Reaction Status Date / Time No Known Allergies Allergy Verified 10/28/23 07:57 Exam Const: General: alert Orientation/consciousness: patient oriented x3 Resp: Auscult
[2023-10-28 07:45] VITALS: BP 144/75; PULSE 54; RESP 16; TEMP 36.6; O2SAT 100; BMI 31.4
[2023-10-28] MEDS: LACTATED RINGERS 1,000 ML 150 ML IV CONT (08:08)
--- NOTE | 2023-10-28 08:18 | WPDANESEPPF ---
Anes - Initial Pre Proc Eval Procedure: Operation Date: 10/28/23 09:00 Proposed Procedures p Esophagogastroduodenoscopy - Elian Dalton MD Date/Time: 10/28/23 08:18 Surgeon: Elian Dalton MD Pre Op Diagnosis: abdominal pain,vomiting Patient Data Age: 63 Gender: F Height: 1.63 m Weight: 83.2 kg Last Vital Signs Temp 97.9 F 10/28/23 07:45 Pulse 54 L 10/28/23 07:45 Resp 16 10/28/23 07:45 BP 144/75 H 10/28/23 07:45 Pulse Ox 100 10/28/23 07:45 O2 Del Method Room Air 10/28/23 07:45 Allergies Allergy/AdvReac Type Severity Reaction Status Date / Time No Known Allergies Allergy Verified 10/28/23 07:57 Home Medications Medication Instructions Recorded Confirmed Type klhqhsfi-lryl-sgup 8 mg-folic 400 1 tablet PO DAILY 09/26/19 10/28/23 History mcg-K 50 mcg-lutein 300 mcg tablet (Centrum Silver Women) aspirin 81 mg tablet,delayed 81 mg PO DAILY 09/12/20 10/28/23 History release cholecalciferol (vitamin D3) 50 50 mcg PO QAM 09/12/20 10/28/23 History mcg (2,000 unit) capsule rosuvastatin 40 mg tablet 40 mg PO QHS 10/03/21 10/28/23 History alendronate 70 mg tablet 70 mg PO WEEKLY 04/02/22 10/28/23 History metoprolol succinate 25 mg 25 mg PO DAILY #90 tabs 05/01/23 10/28/23 Rx tablet,extended release 24 hr mlqaqhmz-thnwobiju-ivjxuicx 3.5 1 drp EACH EYE HS 09/21/23 10/28/23 History mg/mL-10,000 unit/mL-0.1% eye drops Patient hx anesthesia problems: none Family hx anesthesia problems: none Results Review: All pre-operative results and documents have been reviewed as part of the pre-operative evaluation. [facility] Past Medical History Medical History CAD in [place] artery Decreased hearing of left ear Dyslipidemia Edema of both lower legs due to peripheral venous insufficiency Essential (primary) hypertension GERD without esophagitis Hearing loss History of adverse reaction to anesthesia TRINI (obstructive sleep apnea) Osteopenia PVC (premature ventricular contraction) Raynaud's disease without gangrene Vitamin D deficiency Vomiting Wears glasses Surgical History Surgical History History of ear surgery (~2005) left History of tonsillectomy (Unknown) History of total left hip arthroplasty (~05/2022) History of total right hip replacement (~12/2018) History of tympanoplasty (~2010) Left Family History Family History Father Hypertension Family history of arthritis Other High cholesterol Social History Social History Social History: Caffeine-decaf coffee Smoking packs per day: 1 Smoking cigarettes per day: 20.0 Years smoked: 15 Smoking pack-years: 15.00 Smoking status: Former smoker Tobacco type: cigarettes Second hand tobacco smoke exposure: No Smoking end date: 09/07/87 Additional smoking assessment comments: PT DENIES ALL FORMS OF TABACCO USE Alcohol intake: current Alcohol use details: STATES MAYBE 1-3 GLASSES WINE A YEAR Substance use: never Substance use type: does not use Lack of Transportation: No Lack of Food: Never True Current Housing: I Have Housing Concerned About Future Housing: No Difficulty Paying Gas/Electric Bills: No Difficulty Paying for Meds: No Currently Unemployed: No Education: Master's Degree or Higher Difficulty w/ Childcare or Family Care: No Living arrangements: alone Additional living arrangements comments: PT'S MOTHER AND DAUGHTER LIVES WITH HER Occupation/Education: occupation Gender identity (if verbalized by the patient): Female Sexual Orientation (if Verbalized by the Patient): Straight or Heterosexual Spiritual care concerns: No Agree to blood products: Yes Anes - Eval Final PreProcedure Day of Procedure 10/28/23 08:18
[2023-10-28 09:22] VITALS: BP 112/67; PULSE 57; RESP 16; O2SAT 100
[2023-10-28 09:32] VITALS: BP 135/68; PULSE 50; RESP 16; O2SAT 100
[2023-10-28 09:42] VITALS: BP 123/64; PULSE 53; RESP 19; O2SAT 100
== END 2023-10-28 10:00 | disposition home or self-care (01) ==
PROVIDERS: PCP Family Medicine; Visit Provider Internal Medicine Gastroenterology
PROC: 0DJ08ZZ Inspection of Upper Intestinal Tract, Via Natural or Artificial Opening Endoscopic (ICD-10-PCS; CPT 43235; principal; 2023-10-28 09:00)
DX: K22.2 Esophageal obstruction (principal); K29.70 Gastritis, unspecified, without bleeding; K44.9 Diaphragmatic hernia without obstruction or gangrene; K21.00 Gastro-esophageal reflux disease with esophagitis, without bleeding; I25.10 Atherosclerotic heart disease of native coronary artery without angina pectoris; E78.5 Hyperlipidemia, unspecified; I10 Essential (primary) hypertension; E55.9 Vitamin D deficiency, unspecified; Z96.643 Presence of artificial hip joint, bilateral; Z87.891 Personal history of nicotine dependence
CPT/HCPCS: 43239; 43249; 87081; 88305; C1726; J2704; J7120

== ENCOUNTER 2023-11-06 08:04 | Outpatient (CLI) | payer OTHER, SELFPAY ==
--- NOTE | ~2023-11-06 | XR_ITS ---
EXAMINATION: XR UGIAC w barium swallow DATE: 11/06/2023 08:49 INDICATION: Epigastric abdominal pain. Hiatal hernia. TECHNIQUE: The patient drank thick barium, gas-producing crystals, and thin barium. Fluoroscopy of th e esophagus, stomach, and proximal small bowel was performed. Fluoroscopy exposure time was 0.8 minut es. The total number of images was 271. Total dose-area product was 2.262 Gy-cm^2. COMPARISON: None. FINDINGS: There is no mass or stricture of the esophagus. Esophageal motility is normal. There is a l arge sliding hiatal hernia. There was gastroesophageal reflux with provocative maneuvers. The proxima l small bowel shows a normal folding pattern. IMPRESSION: 1. Large sliding hiatal hernia. 2. Gastroesophageal reflux. Reviewed, dictated and finalized at location [facility]
== END 2023-11-06 08:05 | disposition home or self-care (01) ==
PROVIDERS: PCP Family Medicine; Visit Provider Internal Medicine Gastroenterology
DX: R10.13 Epigastric pain (principal); K44.9 Diaphragmatic hernia without obstruction or gangrene; K21.9 Gastro-esophageal reflux disease without esophagitis
CPT/HCPCS: 74246

== ENCOUNTER 2023-11-25 08:43 | Outpatient (CLI) | payer OTHER, SELFPAY ==
--- NOTE | ~2023-11-25 | CT_ITS ---
CT Scan of the Chest without Contrast: Clinical Indication: Diaphragmatic hernia Technique: Contiguous sections were acquired throughout the chest without intravenous contrast. Dose reduction technique was used on this scan by utilizing automated exposure control and iterative recon struction technique. The dose-length product (DLP) was 248.37 mGy-cm. Findings: There is no evidence of any significant mediastinal, hilar or axillary lymphadenopathy. The mediastin al soft tissues appear normal. There is no evidence of pleural or pericardial effusion. The lungs are clear. No pulmonary nodules or infiltrates are noted. Mild emphysema. Images through the upper abdomen reveal large hiatal hernia, containing essentially the entire stomac h, with organoaxial volvulus. Impression: Large hiatal hernia, containing the entire stomach, with organoaxial volvulus. Mild emphysema. Reviewed, dictated and finalized at [facility]. Impression: Large hiatal hernia, containing the entire stomach, with organoaxial volvulus. Mild emphysema.
== END 2023-11-25 08:44 ==
LOC: GOSHIMG 08:45
PROVIDERS: PCP Family Medicine; Visit Provider Surgery
DX: K44.9 Diaphragmatic hernia without obstruction or gangrene (principal); J43.9 Emphysema, unspecified
CPT/HCPCS: 71250

== ENCOUNTER 2024-01-09 07:51 | Outpatient (CLI) | payer OTHER, SELFPAY ==
--- NOTE | 2024-01-09 08:07 | ECG_ITS ---
SEE SCANNED COPY FOR CONFIRMED REPORT MTDD
[2024-01-09 08:10] LABS: Hematocrit 43.9 % (37.0-47.0); Hemoglobin 14.3 g/dL (12.0-15.0)
== END 2024-01-09 07:52 | disposition home or self-care (01) ==
LOC: ANHLAB 07:53
PROVIDERS: PCP Family Medicine; Visit Provider Anesthesiology
DX: K44.9 Diaphragmatic hernia without obstruction or gangrene (principal); I10 Essential (primary) hypertension; Z01.818 Encounter for other preprocedural examination
CPT/HCPCS: 36415; 85014; 85018; 86850; 86900; 86901; 93005

== ENCOUNTER 2024-01-12 00:15 | Day surgery (SDC) | payer OTHER, SELFPAY ==
[2024-01-08 08:21] VITALS: BMI 32.3
--- NOTE | 2024-01-08 08:41 | PC.NURSE ---
PRE-OP INSTRUCTIONS, PLEASE READ CAREFULLY Report to the Outpatient Waiting Room, entrance under the green pavilion located off [facility], at time _0830_ on date _01/12/24_. Planned Procedure Time: _1030_. PACK A SMALL OVERNIGHT BAG AND LEAVE IN THE CAR Time changes happen often and if your time is changed the preop area will call you the afternoon before. - You and your visitor will be asked to self-screen and do not enter if you have any COVID symptoms. - A mask is optional within the hospital at this time. -VISITING HOURS 8AM-8PM CLEAR LIQUID SUPPER EVENING PRIOR TO SURGERY -Patients may have clear liquids (water, carbonated beverages, clear teas, apple juice) until 3 hours prior to surgery (0730 AM) with a maximum of 20 ounces. - No food from midnight until time of surgery Take the following medications with a SIP of water the morning of surgery: _METOPROLOL_ DO NOT STOP ANY OF YOUR OTHER PRESCRIPTION MEDICATIONS PRIOR TO SURGERY ?EXCEPT THE FOLLOWING Medications to discontinue per ANESTHESIA - _MULTIVITAMIN 3 DAYS PRIOR TO SURGERY, Date to take last dose 01/08/24_ Please no make-up, nail kyrgyz, hairspray, perfume, deodorant, or body powder the day of surgery. No jewelry (including any body piercings) or valuables the day of surgery, leave them at home. Please take a shower or bath the night before, or the morning of, surgery with an antibacterial soap. Wear comfortable, loose fitting clothing. - Jewelry must be removed prior to entering the operating room. Rings and piercings that are not removed may be cut off. - The hospital will not accept responsibility for valuables. - Please leave all valuables, including medications, at home the day of surgery. If you are going home after surgery, a licensed straight truck driver must drive you home. - NO public transportation without another adult if you receive anesthesia. - We recommend that an adult stay with you for 24 hours following discharge. - We also recommend that you do not drive, make important decision, drink alcoholic beverages, or take any drugs that were not prescribed by your health care provider for at least 24 hours after your discharge time. Follow any additional instructions given to you from your surgeon. If you or anyone in your household have experienced Covid symptoms in the past week, please notify your surgeon or the nurse liaison at the phone number below for possible testing. Telephone instructions given to _PATIENT_and asked if any additional questions and then verbalized understanding. Patient advised to call surgeon office or pre surgery nurse liaison [phone] if any additional questions.
[2024-01-12] VITALS (19 sets, daily range): BP systolic 118–170; BP diastolic 61–106; PULSE 61–81; RESP 11–20; TEMP 36.2–36.8; O2SAT 93–100
--- NOTE | 2024-01-12 10:10 | WPDHPUPDATE1 ---
History and Physical Update Update Date/Time: 01/12/24 10:10 History and Physical has been reviewed, including an updated exam of the patient. There are NO changes in the patient's condition. Risks, benefits, and alternatives have been discussed and questions answered. Patient agrees to proceed with procedure.
--- NOTE | 2024-01-12 10:37 | WPDANESEPPF ---
Anes - Initial Pre Proc Eval Procedure: Operation Date: 01/12/24 10:30 Proposed Procedures p Laparoscopic Paraesophageal Hernia Repair Fundoplication, Possible Mesh, Possible John Gastroplasty, Davinci Assisted - Jam Nicholas DO Date/Time: 01/12/24 10:37 Surgeon: Jam Nicholas DO Pre Op Diagnosis: hiatal hernia Patient Data Age: 63 Gender: F Height: 1.63 m Weight: 85.1 kg Last Vital Signs Temp 36.5 C 01/12/24 08:39 Pulse 61 01/12/24 08:39 Resp 18 01/12/24 08:39 BP 151/77 H 01/12/24 09:31 Pulse Ox 100 01/12/24 08:39 O2 Del Method Room Air 01/12/24 08:39 Allergies Allergy/AdvReac Type Severity Reaction Status Date / Time No Known Allergies Allergy Verified 01/12/24 09:26 Home Medications Medication Instructions Recorded Confirmed Type hvaxixba-wwdh-[id number] 8 mg-folic 400 1 tablet PO DAILY 09/26/19 01/12/24 History mcg-K 50 mcg-lutein 300 mcg tablet (Centrum Silver Women) aspirin 81 mg tablet,delayed 81 mg PO DAILY 09/12/20 01/12/24 History release cholecalciferol (vitamin D3) 50 50 mcg PO QAM 09/12/20 01/12/24 History mcg (2,000 unit) capsule rosuvastatin 40 mg tablet 40 mg PO QHS 10/03/21 01/12/24 History alendronate 70 mg tablet 70 mg PO WEEKLY 04/02/22 01/12/24 History sswzxtnu-dtmfkcnbf-fagpeysk 3.5 1 drp EACH EYE HS 09/21/23 01/12/24 History mg/mL-10,000 unit/mL-0.1% eye drops metoprolol succinate 25 mg 25 mg PO DAILY #90 tabs 12/21/23 01/12/24 Rx tablet,extended release 24 hr Patient hx anesthesia problems: none Family hx anesthesia problems: none Results Review: All pre-operative results and documents have been reviewed as part of the pre-operative evaluation. [facility] Past Medical History Medical History CAD in [place] artery Decreased hearing of left ear Dyslipidemia Edema of both lower legs due to peripheral venous insufficiency Essential (primary) hypertension GERD without esophagitis Hearing loss History of adverse reaction to anesthesia TRINI (obstructive sleep apnea) Osteopenia PVC (premature ventricular contraction) Raynaud's disease without gangrene Vitamin D deficiency Vomiting Wears glasses Surgical History Surgical History History of ear surgery (~2005) left History of tonsillectomy (Unknown) History of total left hip arthroplasty (~05/2022) History of total right hip replacement (~12/2018) History of tympanoplasty (~2010) Left Family History Family History Father Hypertension Family history of arthritis Other High cholesterol Social History Social History Social History: Caffeine-decaf coffee Smoking packs per day: 1 Smoking cigarettes per day: 20.0 Years smoked: 15 Smoking pack-years: 15.00 Smoking status: Former smoker Tobacco type: cigarettes Second hand tobacco smoke exposure: No Smoking end date: 09/07/87 Additional smoking assessment comments: PT DENIES ALL FORMS OF TABACCO USE Alcohol intake: current Alcohol use details: STATES VERY RARE 1-2 GLASSES OF WINE/YEAR Substance use: never Substance use type: does not use Lack of Transportation: No Lack of Food: Never True Current Housing: I Have Housing Concerned About Future Housing: No Difficulty Paying Gas/Electric Bills: No Difficulty Paying for Meds: No Currently Unemployed: No Education: Master's Degree or Higher Difficulty w/ Childcare or Family Care: No Living arrangements: with family Additional living arrangements comments: PT'S DAUGHTER & MOM LIVES WITH PT Occupation/Education: occupation Gender identity (if verbalized by the patient): Female Sexual Orientation (if Verbalized by the Patient): Straight or Heterosexual Spiritual care concerns: No Agree
[2024-01-12] MEDS: ceFAZolin 2 GM/D5W 50 ML 2 GM/50 ML BAG IVPB (10:57)
[2024-01-12] MEDS: BUPIVACAINE/EPINEPHRINE 0.5% 50 ML VIAL 30 ML INFILTRATE (11:45)
[2024-01-12] MEDS: LACTATED RINGERS 1,000 ML 30 ML IV CONT ×2 (14:08)
--- NOTE | 2024-01-12 14:12 | W.PM.PROC2 ---
Procedure Note - Detailed Date of Procedure 01/12/24 Pre-op Diagnosis hiatal hernia Post-op Diagnosis Same (Type 3 paraesophageal hiatal hernia) Procedure Performed Robotic assisted laparoscopic paraesophageal hernia repair with mesh, 270 degree fundoplication Surgeon Jam Nicholas, DO Anesthesia General and Local (0.5% bupivicaine with epi) Indications This is a 63-year-old woman who presented with a large hiatal hernia. She has known about having a hiatal hernia for several years, but over the past year she has been experiencing frequent episodes of epigastric pain and dysphagia with solid foods. She has had multiple episodes of regurgitation. She has undergone EGD which showed evidence of a large hiatal hernia as well as an upper GI contrast study which confirmed this as well. Discussions were made with the patient about treatment options and decision was made to proceed with robotic assisted laparoscopic paraesophageal hernia repair, possible mesh, with fundoplication. Findings The patient was found to have a type 3 paraesophageal hiatal hernia with about 2/3 of her stomach protruding up into hernia defect. The GE junction was also about 6 cm above the diaphragm. The hernia sac was excised and the stomach was mobilized out of the mediastinum. I ensured that I had enough esophageal length to perform the fundoplication. The hiatal hernia was repaired using 2 0 V lock permanent running suture as well as a 2 0 Ethibond suture on the anterior surface of the diaphragm. The repair was then also reinforced using a piece of Phasix ST mesh. The mesh was cut to 10 cm x 7 cm and then a 2.5 cm U shape was cut out of the superior middle of the mesh. The mesh was then secured in place to the diaphragm using 2-0 Vicryl simple interrupted sutures. Decision was made to perform a 270 degree fundoplication. Description of Procedure Procedure as well as risks, benefits, and alternatives were discussed with the patient. Written consent was obtained and placed in chart prior to procedure. Patient was brought back to surgical suite. She was placed supine on operating table. Time-out was done to confirm patient and procedure. She was then intubated by the anesthesia department. Her abdomen was prepped and draped in sterile fashion using chlorhexidine prep. 0.5% bupivacaine with epinephrine was infiltrated locally around each area for port placement. An 8 mm incision was made in the left upper quadrant 2 cm inferior to the costal margin in the mid clavicular line. A 5 mm Optiview trocar was then advanced through the abdominal layers under direct visualization. Once inside the abdominal cavity, carbon dioxide insufflation was used to create a pneumoperitoneum. The camera was inserted in the abdomen was inspected. No immediate abnormalities were identified. Another 8 mm camera port was placed about 15 cm inferior to the xiphoid just to the left of midline under direct visualization. An 8 mm port was placed in the anterior axillary line on the left upper quadrant at about the same transverse plane as the camera port. An 8 mm port was placed in the right upper quadrant and another 8 mm AirSeal assist port was placed in right lower quadrant just to the right of the umbilicus. A 5 mm incision was made in the subxiphoid region and the Danika liver retractor was inserted through this incision into the abdominal cavity to lift up the left lobe of the liver. This was secured in place to the bed of the table. The patient was then placed in 30? reverse Trendelenburg. The robotic arms were secured to the ports and the robotic camera and instruments were inserted. A force bipolar grasper was placed in the right upper quadrant port. The vessel sealer was placed in the midclavicular left upper quadrant port and a Cadiere grasper was placed in the anterior axillary line left upper quadrant port. I then moved over to the robotic console took control of the camera and inst
[2024-01-12] MEDS: fentaNYL CITRATE INJ (*CRX) 100 MCG/2 ML VIAL 25 MCG IV PUSH ×4 (14:20→14:40)
--- NOTE | 2024-01-12 16:20 | ADMGEN ---
This patient, Ayana Pennington, was admitted to [facility] Surg Room 332-01. Patient/family oriented to hospital policies and general routines including ID bracelet, bed and alarms, visiting hours, pain management, procedures, bathroom and other care routines, personal items, smoking policy, room service/diet, and visiting hours. Information on how to activate the Rapid Response Team has been discussed. Patient/Family are encouraged to report perceived risks to care and to ask questions if they do not understand what they are told or what they should do.
[2024-01-12] MEDS: SIMETHICONE 80 MG TAB.CHEW PO ×2 (16:36→21:03)
[2024-01-12] MEDS: LACTATED RINGERS 1,000 ML 100 ML IV CONT (16:37)
[2024-01-12] MEDS: oxyCODONE HCL (*CRX) 5 MG TAB IR PO (17:10)
[2024-01-12] MEDS: IBUPROFEN IV 800 MG/200 ML 800 MG/200 ML BAG 400 MG IVPB (18:14)
[2024-01-12] MEDS: ROSUVASTATIN 10 MG TABLET 40 MG PO (21:03)
[2024-01-12] MEDS: NEOMYCIN/POLYMYXIN/DEXAMETH OP SUSP 5 ML BTL 1 DROP EACH EYE (21:03)
[2024-01-13] VITALS (7 sets, daily range): BP systolic 123–150; BP diastolic 60–75; PULSE 57–84; RESP 16–18; TEMP 36.9–37.1; O2SAT 94–97
[2024-01-13] MEDS: IBUPROFEN IV 800 MG/200 ML 800 MG/200 ML BAG 400 MG IVPB ×2 (02:30→12:13)
[2024-01-13 06:52] LABS: Hemoglobin 14.4 g/dL (12.0-15.0); Mean Corpuscular HGB Conc 32.7 g/dl (32-36); Mean Corpuscular Hemoglobin 28.7 pg (26-34); Mean Corpuscular Volume 87.6 fl (80-100); Mean Platelet Volume 11.1 fl (7.4-10.4); Platelet Count Result 166 k/mm3 (150-375); Red Blood Count 5.02 M/mm3 (4.2-5.4); Red Cell Distribution Width 14.8 % (11.5-14.5); White Blood Count 13.6 K/mm3 (4.5-10.0)
[2024-01-13 07:10] LABS: Anion Gap 7 mmol/L (4-12); Blood Urea Nitrogen 17 mg/dL (7-17); Calcium 8.6 mg/dL (8.4-10.2); Carbon Dioxide 25 mmol/L (22-30); Chloride 106 mmol/L (98-107); Estimated CRCL calculation 58 ml/min; Estimated Glomerular Filt Rate > 60; Glucose 106 mg/dL (65-110); Potassium 3.9 mmol/L (3.4-5.0); Sodium 138 mmol/L (137-145)
[2024-01-13] MEDS: METOPROLOL SUCCINATE EXT REL 25 MG TABCR PO (08:14)
[2024-01-13] MEDS: SIMETHICONE 80 MG TAB.CHEW PO ×2 (08:14→12:08)
[2024-01-13] MEDS: ASPIRIN 81 MG ENTERIC TABLET PO (08:14)
[2024-01-13] MEDS: ENOXAPARIN 40 MG/0.4 ML SYRINGE SUB-Q (08:15)
[2024-01-13] MEDS: ACETAMINOPHEN 500 MG TABLET PO (08:21)
--- NOTE | 2024-01-13 08:35 | WPDANESPN ---
Anes - Prog Note Post-Op Date/Time: 01/13/24 08:35 Cardiovascular status: normal Respiratory status: normal Airway patency: baseline Mental status: baseline Post-Op hydration status: normal Vital Signs: Last Vital Signs Temp 37.1 C 01/13/24 05:40 Pulse 64 01/13/24 08:14 Resp 18 01/13/24 06:00 BP 133/68 01/13/24 05:40 Pulse Ox 96 01/13/24 06:00 O2 Del Method Autopap 01/13/24 06:00 O2 Flow Rate 2 01/12/24 16:20 Pain Score (VAS): 3 (sore throat) I/O: Intake & Output 01/12/24 01/13/24 01/13/24 23:59 07:59 15:59 Intake Total 440 200 240 Output Total 800 Balance -360 200 240 Laboratory Tests 01/13/24 05:53 01/13/24 05:53 01/13/24 05:53 WBC 13.6 H RBC 5.02 Hgb 14.4 Hct 44.0 MCV 87.6 MCH 28.7 MCHC 32.7 RDW 14.8 H Plt Count 166 MPV 11.1 H Sodium 138 Potassium 3.9 Chloride 106 Carbon Dioxide 25 Anion Gap 7 BUN 17 Creatinine 0.90 Estim Creat Clear Calc 58 Estimated GFR > 60 Glucose 106 Calcium 8.6 Post-procedural complaints: other (Sore Throat) Patient Feedback: Patient satisfied with anesthetic care.
--- NOTE | 2024-01-13 16:51 | PM.PNGS ---
Progress Note: A&P Assessment and Plan (1) Paraesophageal hernia: Code(s): K44.9 - Diaphragmatic hernia without obstruction or gangrene Status: Acute Assessment and Plan: Doing well on POD#1. Tolerating full liquids without significant dysphagia. Pain controlled. Will discharge home today. Discharge instructions discussed with patient. Remain on full liquid diet for 2 week. F/u in office in 2 weeks. Subjective Subjective Date/Time Seen: 01/13/24 16:51 Interval history: Tolerating full liquids. Pain controlled. Mostly complaining of gas pains radiating to right shoulder. Up ambulating in halls. Exam GI: Inspection: incision (intact with glue) GI Palp: Yes Soft to palpation, Yes Tenderness to palpation present (GI) (incisional) and No Guarding due to palpation present (GI) Auscultation: normal bowel sounds Objective Data Vital Signs Vital Signs: Vital Signs - 24 hr 01/12/24 17:00 01/12/24 18:00 01/12/24 18:21 Temperature 36.5 C 36.5 C Pulse Rate 65 63 Respiratory Rate 16 16 Blood Pressure 129/61 133/63 Pulse Oximetry 97 98 94 Oxygen Delivery Room Air 01/12/24 22:00 01/13/24 01:40 01/12/24 21:00 Temperature 36.8 C 37.0 C Pulse Rate 68 84 62 Respiratory Rate 16 18 18 Blood Pressure 140/62 123/60 Pulse Oximetry 96 94 93 Oxygen Delivery Autopap 01/13/24 01:00 01/13/24 05:40 01/13/24 06:00 Temperature 37.1 C Pulse Rate 81 62 62 Respiratory Rate 17 18 18 Blood Pressure 133/68 Pulse Oximetry 94 96 96 Oxygen Delivery Autopap Autopap 01/13/24 08:14 01/13/24 08:39 01/13/24 14:00 Temperature 36.9 C Pulse Rate 64 57 L Respiratory Rate 16 Blood Pressure 150/75 H Pulse Oximetry 97 97 Oxygen Delivery Room Air Intake/Output Intake/Output: Intake & Output 01/10/24 01/11/24 01/12/24 01/13/24 23:59 23:59 23:59 23:59 Intake Total 590 990 Output Total 800 Balance -210 990 Meds/Results Medications: Active Medications Generic Name Dose Route Start Last Admin Trade Name Freq PRN Reason Stop Dose Admin Acetaminophen 500 mg 01/12/24 15:55 01/13/24 08:21 Acetaminophen 500 Mg Tablet PO 500 mg Q6H PRN Administration Pain Rated 1-3 Aspirin 81 mg 01/13/24 09:00 01/13/24 08:14 Aspirin 81 Mg Enteric Tablet PO 81 mg DAILY OSWALD Administration Enoxaparin Sodium 40 mg 01/13/24 09:00 01/13/24 08:15 Enoxaparin 40 Mg/0.4 Ml Syringe SUB-Q 40 mg DAILY OSWALD Administration Ibuprofen 800 mg in 200 mls @ 400 mls/hr 01/12/24 15:55 01/13/24 12:44 Caldolor 800 Mg/200 Ml IVPB Infused Q6H PRN Infusion Breakthrough Pain Rated 1-3 or NPO Metoprolol Succinate 25 mg 01/13/24 09:00 01/13/24 08:14 Metoprolol Succinate Ext Rel 25 Mg Tabcr PO 25 mg DAILY OSWALD Administration Morphine Sulfate 2 mg 01/12/24 15:55 Morphine Sulfate (*Crx) 2 Mg/Ml Inj IV PUSH Q2H PRN Breakthrough Pain Rated 4-6 or NPO Morphine Sulfate 4 mg 01/12/24 15:55 Morphine Sulfate (*Crx) 4 Mg/Ml Inj IV PUSH Q2H PRN Breakthrough Pain Rated 7-10 or NPO Naloxone HCl 0.1 mg 01/12/24 15:55 Naloxone Hcl 0.4 Mg/Ml Vial IV PUSH Q2M PRN Opiate Reversal Neomycin/Polymyxin/Dexamethasone 1 drop 01/12/24 21:00 01/12/24 21:03 Neomycin/Polymyxin/Dexameth Op Susp 5 Ml Btl EACH EYE 1 drop HS OSWALD Administration Ondansetron HCl 4 mg 01/12/24 15:55 Ondansetron Inj 4 Mg/2 Ml Vial IV PUSH Q4H PRN Nausea And Vomiting Oxycodone HCl 2.5 mg 01/12/24 15:55 Oxycodone Hcl (*Crx) 2.5 Mg Tab Ir PO Q4H PRN Pain Rated 4-6 Oxycodone HCl 5 mg 01/12/24 15:55 01/12/24 17:10 Oxycodone Hcl (*Crx) 5 Mg Tab Ir PO 5 mg Q4H PRN Administration Pain Rated 7-10 Rosuvastatin Calcium 40 mg 01/12/24 21:00 01/12/24 21:03 Rosuvastatin 10 Mg Tablet PO 40 mg QHS OSWALD Administration Simethicone 80 mg 01/12/24 17:00 01/13/24 12:08 Simethicone 80 Mg Tab.Chew P
== END 2024-01-13 17:20 | disposition home or self-care (01) ==
LOC: ANHSURGERY 08:32 → ANH3MEDSUR 16:15
PROVIDERS: PCP Family Medicine; Visit Provider Surgery
PROC: 0DV44ZZ Restriction of Esophagogastric Junction, Percutaneous Endoscopic Approach (ICD-10-PCS; CPT 43280; principal; 2024-01-12 10:30)
DX: K44.9 Diaphragmatic hernia without obstruction or gangrene (principal); I25.10 Atherosclerotic heart disease of native coronary artery without angina pectoris; E78.5 Hyperlipidemia, unspecified; I10 Essential (primary) hypertension; K21.9 Gastro-esophageal reflux disease without esophagitis; G47.33 Obstructive sleep apnea (adult) (pediatric); E55.9 Vitamin D deficiency, unspecified; I49.3 Ventricular premature depolarization; Z87.891 Personal history of nicotine dependence; E66.9 Obesity, unspecified; Z68.32 Body mass index [BMI] 32.0-32.9, adult; Z79.82 Long term (current) use of aspirin
CPT/HCPCS: 43280; S2900; 36415; 80048; 85014; 85018; 85027; 86850; 86900; 86901; 88302; 93005; A9270; J0690; J1100; J1650; J1741; J2405; J2704; J3010; J7120

== ENCOUNTER 2024-03-05 07:50 | Outpatient (CLI) | payer OTHER, SELFPAY ==
--- NOTE | ~2024-03-05 | DEXA_ITS ---
Bone Density Report Name: DE MCDANIELS Age: 63 Sex: Female Ethnicity: White Date of : 1960 Indication: osteopenia; Referring Provider: SHANE, PATO Study: Bone densitometry was performed. Exam Date: March 05, 2024 Accession number: [id number] Bone Density: Region BMD T-score Z-score Classification AP Spine(L1-L4) 0.882 -1.5 0.3 Osteopenia World Health Organization criteria for BMD impression classify patients as: Normal (T-score at or above -1.0), Osteopenia (T-score between -1.0 and -2.5), or Osteoporosis (T-score at or below -2.5). Previous Exams: Region Exam Age BMD T-score BMD Change BMD Change Date g/cm2 vs Baseline vs Previous AP Spine (L1-L4) 03/05/2024 63 0.882 -1.5 0.094 (11.9%)# 0.004 (0.5%) 01/31/2022 61 0.877 -1.5 0.090 (11.4%)# 0.090 (11.4%)# 10/25/2019 59 0.788 -2.4 *Denotes significance at 95% confidence level, LSC for AP Spine = 0.022 g/cm2 # Denotes dissimilar scan types or analysis methods Clinical Information Provided by Patient: Has used the following medications: Fosamax (i.e. alendronate), Vitamin D Patient maximum height was 64.0 Menopause Age: 46 Onset of menses at age 11 Number of children 2 Impression: The patient has low bone mass, based on the Total Spine T-score. No significant bone loss was observed. Discussion: BONE DENSITY IS LOW AT ONE OR MORE SKELETAL SITES. This patient's lowest T-score is low at one or more skeletal sites. It meets the World Health Organization's (WHO) criteria for ?low bone mass? (T-score between -1.0 and -2.5). The patient's 10-year risk of fracture as calculated by FRAX is less than the threshold where pharmacological therapy is recommended by the National Osteoporosis Foundation (NOF). However, all treatment decisions require clinical judgment and consideration of individual patient factors, including patient preferences, comorbidities, previous drug use, risk factors not captured in the FRAX model (e.g., frailty, falls, vitamin D deficiency, increased bone turnover, interval significant decline in bone density) and possible under or overestimation of fracture risk by FRAX. The patient should follow a healthful lifestyle (good nutrition with adequate calcium and vitamin D, and appropriate weight-bearing exercise). Follow-Up: Consider repeating this study in 2 to 3 years to reassess this patient's status, or sooner if there is some new clinical indication. Reported by: GINETTE on 03/05/2024 8:43:00 AM. Reviewed, dictated and finalized at location [facility]
--- NOTE | ~2024-03-05 | MM_ITS ---
EXAMINATION: MM screening kamilla BI w luis m HISTORY: Screening mammogram TECHNIQUE: Craniocaudal and mediolateral oblique 3-D tomosynthesis images were obtained and synthetic 2-D images were generated. CAD analysis was submitted and interpreted. COMPARISON: 02/03/2023, 01/31/2022, 10/25/2019 BREAST PARENCHYMAL COMPOSITION:Not Dense. The breasts are almost entirely fatty FINDINGS: No suspicious mass, calcification, or architectural distortion are identified in either esequiel ast to suggest malignancy. There has been no suspicious interval change. IMPRESSION: No mammographic evidence of malignancy. Recommend routine screening mammography in one year. BI-RADS Category 1: Negative Reviewed, dictated and finalized at location .
== END 2024-03-05 07:51 | disposition home or self-care (01) ==
PROVIDERS: PCP Family Medicine; Visit Provider Nurse Practitioner Women's Health
DX: Z12.31 Encounter for screening mammogram for malignant neoplasm of breast (principal); Z78.0 Asymptomatic menopausal state; M85.88 Other specified disorders of bone density and structure, other site
CPT/HCPCS: 77063; 77067; 77080

== ENCOUNTER 2024-06-14 08:17 | Emergency (ER) | payer OTHER, SELFPAY ==
[2024-06-14 08:41] VITALS: BP 162/68; PULSE 63; RESP 16; TEMP 36.6; O2SAT 100
--- NOTE | 2024-06-14 09:05 | ED.SKABFB ---
HPI - Skin/Abscess/Foreign Bdy General Chief complaint: Skin/Abscess/Foreign Body Stated complaint: rash Time Seen by Provider: 06/14/24 08:55 Source: patient, RN notes reviewed and old records reviewed Mode of arrival: ambulatory Limitations: no limitations History of Present Illness HPI narrative: 63 year old female who presents to [facility] care with complaints of rash to bilateral forearm and also one small spot on her forehead which started yesterday. She initially thought she had mosquito bite by her elbow but then other red blotchy areas of rash appeared on her forearms which are itchy. Patient recently traveled to [place] and stayed in [facility] used body wash from hotel is only thing different she can think of. 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 Patient reports that she has taken Benadryl for the itching. MD complaint: rash Onset (ago): day(s) (since yesterday) Location: face (one smalll spot to forehead), LLE (forearm) and RLE (forearm) Severity: mild Quality: pruritic Treatments prior to arrival: Benadryl Related Data Home Medications Medication Instructions Recorded Confirmed tupowgpv-vmes-umqg 8 mg-folic 400 1 tablet PO DAILY 09/26/19 06/14/24 mcg-K 50 mcg-lutein 300 mcg tablet (Centrum Silver Women) aspirin 81 mg tablet,delayed 81 mg PO DAILY 09/12/20 06/14/24 release cholecalciferol (vitamin D3) 50 50 mcg PO QAM 09/12/20 06/14/24 mcg (2,000 unit) capsule rosuvastatin 40 mg tablet 40 mg PO QHS 10/03/21 06/14/24 alendronate 70 mg tablet 70 mg PO WEEKLY 04/02/22 06/14/24 ffkkgsyr-qzwmmxiyk-hypvqyac 3.5 1 drp EACH EYE HS 09/21/23 06/14/24 mg/mL-10,000 unit/mL-0.1% eye drops Allergies Allergy/AdvReac Type Severity Reaction Status Date / Time No Known Allergies Allergy Verified 06/14/24 08:52 Review of Systems Review of Systems: CONSTITUTIONAL: Denies fever, chills, or sweats. CARDIOVASCULAR: Denies chest pain, palpitations, or edema. RESPIRATORY: Denies cough or dyspnea. SKIN: Reports red blotchy rash on forearm bilaterally which are itching, no pustules or vesicle appearance, small area also to forehead MUSCULOSKELETAL: Denies joint pain or myalgia. NEUROLOGIC: Denies headache, numbness, or weakness. All systems reviewed & are unremarkable except as noted in HPI and below PMFSH Past Medical History Medical History CAD in [place] artery (~2018) Decreased hearing of left ear Dyslipidemia Edema of both lower legs due to peripheral venous insufficiency Essential (primary) hypertension GERD without esophagitis Hearing loss History of adverse reaction to anesthesia TRINI (obstructive sleep apnea) Osteopenia PVC (premature ventricular contraction) Raynaud's disease without gangrene Vitamin D deficiency Vomiting Wears glasses Surgical History Surgical History History of ear surgery (~2005) left History of repair of hiatal hernia (~01/2024) Robotic assisted laparoscopic paraesophageal hernia repair with mesh, 270 degree fundoplication 01/12/24 History of tonsillectomy (Unknown) History of total left hip arthroplasty (~05/2022) History of total right hip replacement (~12/2018) History of tympanoplasty (~2010) Left Family History Family History Father Hypertension Family history of arthritis Other High cholesterol Social History Social History Social History: Caffeine-decaf coffee Smoking packs per day: 1 Smoking cigarettes per day: 20.0 Years smoked: 15 Smoking pack-years: 15.00 Smoking status: Former smoker Second hand tobacco smoke exposure: No Additional smoking assessment comments: PT DENIES ALL FORMS OF TABACCO USE Alcohol intake: never Alcoho
== END 2024-06-14 09:25 | disposition home or self-care (01) ==
PROVIDERS: Emergency Provider Registered Nurse; PCP Family Medicine
DX: L25.9 Unspecified contact dermatitis, unspecified cause (principal); I25.10 Atherosclerotic heart disease of native coronary artery without angina pectoris; E78.5 Hyperlipidemia, unspecified; I10 Essential (primary) hypertension; K21.9 Gastro-esophageal reflux disease without esophagitis; M85.80 Other specified disorders of bone density and structure, unspecified site; I73.00 Raynaud's syndrome without gangrene; E55.9 Vitamin D deficiency, unspecified; Z79.82 Long term (current) use of aspirin; Z96.643 Presence of artificial hip joint, bilateral
CPT/HCPCS: 99213; G0463

== ENCOUNTER 2024-10-27 08:10 | Outpatient (CLI) | payer MEDICARE, SELFPAY ==
--- OUTSIDE RECORDS SUMMARY | 2024-10-27 08:18 | XMS_ITS | Patient Health Summary ---
Author Organization [facility] [employer] Address [address] [place] [address] Care Team Providers Care Information Management Officer Name Role Phone Unavailable Primary Care Provider Unavailabl e Note from [facility] [place] [facility] [place]non-owned Affiliates and Associated Physician Practices is amultiple site organization consisting of ambulatory clinics and hospital sitesin [place], [place], [place] and [place]. This disclosure is being madepursuant to the Care Everywhere program and may not contain all information available regarding this patient. Last updated 18.[facility] Immunizations * INFLUENZA VACCINE, QUADR. (FLUZONE; FLULAVAL; FLUARIX; AFLURIA QUADRIVALENT; 6MO+), 0.5 ML (IIV4)(Given 06/15/2020) Social History Tobacco Use Types Packs/Day Years Used Date Smoking Tobacco: Never Assessed Sex and Gender Information Value Date Recorded Sex Assigned at Not on file Gender Identity Not on file Sexual Orientation Not on file
--- OUTSIDE RECORDS SUMMARY | 2024-10-27 08:18 | XMS_ITS | Referral Summary ---
Author Organization [facility] [address] [place] [address] [address] [place] [address] 162 [place] [address] Care Team Providers Care Rectifier Operator Name Role Phone Karen Ardon MD Primary Care Provider Encounters Date Type Department Care Team Description 10/24/[address] [facility] Medical [facility] Cardiology [address] [place] [address] 162 [address] [place] [address] Vlad Acosta MD 10/24/2024 10:00 AM ASSEMBLER CARBON BRUSHES Ancillary Procedure [facility] Medical Group Cardiology at [address] [place] [address] PAC (premature atrial contraction) 09/29/2024 11:30 AM ASSEMBLER CARBON BRUSHES Office Visit [facility] Medical Group Cardiology at [address] [place] [address] Vlad Acosta MD Essential hypertension (Primary Dx); PAC (premature atrial contraction) 07/29/2024 Telephone [facility] Cardiology [address] [place] [address] [address] [place] [address] Areli Carranza NP from Last 3 Months Allergies No known active allergies Medications aspirin 81 mg enteric coated tablet Take 1 tablet (81 mg total) by mouth daily Active multivit-min/iron/ folic/lutein (CENTRUM SILVER WOMEN ORAL) Active cholecalciferol (VITAMIN D-3) 2000 unit tablet Active metoprolol XL (TOPROL-XL) 25 mg extended release tablet 2 Active alendronate (Fosamax) 70 mg tablet 2 Active neomycin-polymyxin -dexAMETHasone (MAXITROL) 3.5mg/mL-10,000 unit/mL-0.1 % ophthalmic suspension 3 Active rosuvastatin (CRESTOR) 40 mg tabletIndications: Coronary artery disease involving [place] coronary artery of [place] heart without angina pectoris,Mixed hyperlipidemia TAKE 1 TABLET BY MOUTH DAILY 90 tablet 3 4 Active triamterene-hydroC HLOROthiazide (MAXZIDE,DYAZIDE) 75-50 mg per tablet Take 0.5 tablets by mouth daily Active icosapent ethyL (Vascepa) 1 gram capsule Take 2 capsules (2 g total) by mouth 2 (two) times a day 1 025 Discontin ued(Thera py completed ) diphenhydrAMINE (Benadryl Allergy) 25 mg capsule 4 025 Discontin ued(Thera py completed ) triamcinolone (KENALOG) 0.1 % ointment 4 025 Discontin ued(Thera py completed ) predniSONE (DELTASONE) 10 mg tablet 4 025 Discontin ued(Thera py completed ) famotidine (PEPCID) 20 mg tablet 4 025 Discontin ued(Thera py completed ) Active Problems Problem Noted Date Diagnosed Date Class 2 obesity without serious comorbidity in a dult 02/05/2022 TRINI (obstructive sleep apnea) 01/24/2021 Coronary artery disease invo lving [place] coronary artery of [place] heart without angina pectoris 01/10/2020 Essential hypertension 01/10/2020 Mixed hyperlipidemia 01/10/2020 Palpitations 01/10/2020 PAC (premature atrial contraction) 01/10/2020 Pre-diabetes 01/10/2020 Bradycardia 01/10/2020 Resolved Problems Problem Noted Date Diagnosed Date Resolved Date Preoperative cardiovascular examination 01/24/2021 02/05/2022 Gross hematuria 01/11/2020 01/24/2021 Morbid obesity with BMI of 40.0-44.9, adult 01/10/2020 02/05/2022 Social History Tobacco Use Types Packs/Day Years Used Date Smoking Tobacco: Former Cigarettes Smokeless Tobacco: Never Alcohol Use Standard Drinks/Week Comments Yes 0 (1 standard drink = 0.6 oz pur e alcohol) AUDIT-C Answer Date Recorded Frequency of Alcohol Consumption Monthly or less 01/14/2019 Average Number of Drinks 1 or 2 019 Frequency of Binge Drinking Never 01/05 Comments Unknown Sex and Gender Information Value Date Recorded Sex Assigned at Not on file Legal Sex Female 8:07 PM ASSEMBLER CARBON BRUSHES Gender Identity Not on file Sexual Orientation Not on file Last Filed Vital Signs Vital Sign Reading Time Taken Comments Blood Pressure 138/88 09/29/2024 11:25 AM ASSEMBLER CARBON BRUSHES Pulse 64 09/29/2024 11:25 AM ASSEMBLER CARBON BRUSHES Temperature - - Respiratory Rate - - Oxygen Saturation 96% 09/29/2024 11:25 AM ASSEMBLER CARBON BRUSHES Inhaled Oxygen Concentration - - Weight 91.2 kg (201 lb) 09/29/2024 11:25 AM ASSEMBLER CARBON BRUSHES Height 162.6 cm (5' 4 ) 09/29/2024 11:25 AM ASSEMBLER CARBON BRUSHES Body Mass Index 34.5 09/29/2024 11:25 AM ASSEMBLER CARBON BRUSHES Plan of Treatment Not on file Insurance [facility] MEDICARE [facility] [employer] MEDICARE [facility] MEDICARE SUPPLEMENT Care Teams Rectifier Operator Relationship Specialty Start Date End Date Karen Ardon MD PCP - General Family Practice 12/03/18
--- OUTSIDE RECORDS SUMMARY | 2024-10-27 08:18 | XMS_ITS | Clinical Summary ---
Author Organization [facility] [address] [place] [address] Care Team Providers Care Visual Specialist Name Role Phone Karen Ardon MD Primary Care Provider Allergies No known active allergies Medications aspirin [...] 40 mg tabletIndications: Coronary artery disease involving [place] coronary artery of [place] heart without angina pectoris,Mixed hyperlipidemia TAKE 1 [...] apnea) 01/24/2021 Coronary artery disease invo lving [place] coronary artery of [place] heart without angina pectoris 01/10/2020 Essential hypertension 01/10/2020 Mixed hyperlipidemia 01/10/2020 Palpitations 01/10/2020 PAC (premature atrial contraction) 01/10/2020 Pre-diabetes 01/10/2020 Bradycardia 01/10/2020 Resolved Problems Problem Noted Date Diagnosed Date Resolved Date Preoperative cardiovascular examination 01/24/2021 02/05/2022 Gross hematuria 01/11/2020 01/24/2021 Morbid obesity with BMI of 40.0-44.9, adult 01/10/2020 02/05/2022 Encounters Date Type Department Care Team Description 10/24/2024 10:00 AM MARINE ENGINE DRIVER Ancillary Procedure [facility] Medical Group Cardiology at [address] [place] [address] PAC (premature atrial contraction) 10/24/2024 Telephone [facility] Cardiology [address] [facility] [address] [place] [address] Vlad Acosta MD 09/29/2024 11:30 AM MARINE ENGINE DRIVER Office Visit [facility] Cardiology at [address] [place] [phone] Vlad Acosta MD Essential hypertension (Primary Dx); PAC (premature atrial contraction) 07/29/2024 Telephone [facility] Cardiology [address] [facility] [address] [place] [address] Areli Carranza NP from Last 3 Months Surgical History Surgery Date Site/Laterality Comments TOTAL HIP ARTHROPLASTY 09/07/2018 - 09/06/2019 Right TONSILLECTOMY JOINT REPLACEMENT 12/14/2018 CATARACT EXTRACTION not yet, but schedul ed for 07/07 and 08/11/2024 HERNIA REPAIR January 2024, large hiat al hernia repaired Medical History Medical History Date Comments HTN (hypertension) Vertigo High cholesterol Pre-diabetes Acid indigestion Diverticulitis Anemia Sleep apnea Cataract 01/09/2021 - just starting Diabetes mellitus (HCC) 09/2019 - pre-diabetes - last A1C 6.2 on 01/14/2021 Arthritis 2018 Family History Medical History Relation Name Comments Clotting disorder Brother 1 Derrell Godinezdams Seizures Brother 1 Derrell Blands Valvular heart disease Brother 1 Derrell Godinezdams Atrial fibrillation Brother 2 Alcohol abuse Father Gordy Quiroz COPD Father Gordy Quiroz Arthritis Mother Phyllis Quiroz Hypertension Mother Phyllis Quiroz Relation Name Status Comments Brother 1 Derrell Blands Alive Brother 2 Alive Father Gordy Quiroz (Age 79) Mother Phyllis Quiroz Alive Social History Tobacco Use Types Packs/Day Years [...] on file Legal Sex Female 8:07 PM MARINE ENGINE DRIVER Gender Identity Not on file Sexual Orientation Not on file Obstetrics History Last Filed Vital Signs Vital Sign Reading Time Taken Comments Blood Pressure 138/88 09/29/2024 11:25 AM MARINE ENGINE DRIVER Pulse 64 09/29/2024 11:25 AM MARINE ENGINE DRIVER Temperature - - Respiratory Rate - - Oxygen Saturation 96% 09/29/2024 11:25 AM MARINE ENGINE DRIVER Inhaled Oxygen Concentration - - Weight 91.2 kg (201 lb) 09/29/2024 11:25 AM MARINE ENGINE DRIVER Height 162.6 cm (5' 4 ) 09/29/2024 11:25 AM MARINE ENGINE DRIVER Body Mass Index 34.5 09/29/2024 11:25 AM MARINE ENGINE DRIVER Plan of Treatment Health Maintenance Due Date Last Done Comments Breast Cancer Screening-Mammogram 1960 Colon Cancer Screening-Colonoscopy 1960 Depression Screening 1960 Fall Risk Assessment 1960 Hepatitis C Screening 1960 Osteoporosis Screening-Bone Density Scan 1958 Hepatitis B Screening 1976 Pneumococcal vaccine 65+ (1 of 1 - PCV) 2008 Zoster Vaccine (1 of 2) 2008 Well Visit 65+ 2023 Influenza Vaccine (#1) 2024 06/15/2020 DTaP/Tdap/Td Vaccine (2 - Td or Tdap) 04/14/202604/2016 Insurance [facility] MEDICARE [facility] [employer] MEDICARE [facility] MEDICARE SUPPLEMENT Care Teams Visual Specialist Relationship Specialty Start Date End Date Karen Ardon MD PCP - General Family Practice 12/03/18
--- OUTSIDE RECORDS SUMMARY | 2024-10-27 08:18 | XMS_ITS | Referral Summary ---
Author Organization [facility] Address [address] [place] [address] Care Team Providers Care Strap Buckler Name Role Phone Unavailable Primary Care Provider Unavailabl e Source Comments [facility],non-owned Affiliates and Associated Physician Practices is amultiple site organization consisting of ambulatory clinics and hospital sitesin [place], [place], [place] and [place]. This disclosure is being madepursuant to the Care Everywhere program and may not contain all information available regarding this patient. Last updated 18.[facility] Immunizations Name Administration Dates Next Due INFLUENZA VACCINE, QUADR. (F LUZONE; FLULAVAL; FLUARIX; AFLURIA QUADRIVALENT; 6MO+), 0.5 ML (IIV4) 06/15/2020 Social History Tobacco Use Types Packs/Day Years Used Date Smoking Tobacco: Never Assessed Sex and Gender Information Value Date Recorded Sex Assigned at Not on file Gender Identity Not on file Sexual Orientation Not on file Plan of Treatment Not on file AYANA PENNINGTON Personal/Family [address] [place] [address] AYANA PENINNGTON Personal/Family [address] [place] [address] AYANA PENNINGTON Personal/Family [address] [place] [address] Ayana Pennington Personal/Family Self 1960 [address] [place] [address]
--- OUTSIDE RECORDS SUMMARY | 2024-10-27 08:18 | XMS_ITS | Clinical Summary ---
Author Organization [facility] Address [address] [facility] [place] [address] Care Team Providers Care Refractory Furnace Designer Name Role Phone Unavailable Primary Care Provider Unavailabl e Source Comments [facility],non-owned Affiliates and Associated Physician Practices is amultiple site organization consisting of ambulatory clinics and hospital sitesin [place], [place], [place] and [place]. This disclosure is being madepursuant to the Care Everywhere program and may not contain all information available regarding this patient. Last updated 18.[facility] Immunizations Name Administration Dates Next Due INFLUENZA VACCINE, QUADR. (F LUZONE; FLULAVAL; FLUARIX; AFLURIA QUADRIVALENT; 6MO+), 0.5 ML (IIV4) 06/15/2020 Social History Tobacco Use Types Packs/Day Years Used Date Smoking Tobacco: Never Assessed Sex and Gender Information Value Date Recorded Sex Assigned at Not on file Gender Identity Not on file Sexual Orientation Not on file Plan of Treatment Health Maintenance Due Date Last Done Comments BONE DENSITY TESTING 1960 COLOGUARD (AGES 45-75) - COL ON CA SCREENING 1958 COLON MONITORING 1958 COLONOSCOPY - COLON CA SCREENING 1958 CT COLONOGRAPHY - COLON CA SCREENING 1960 Colorectal Cancer Screening 1958 FIT - COLON CA SCREENING 1958 FLEX SIG - COLON CA SCREENING 1958 LIPID TESTING 1960 MAMMOGRAM 1958 HEPATITIS C SCREENING 08/22/1976 DTAP/TDAP/TD VACCINES (1 - Tdap) 1977 PNEUMOCOCCAL VACCINE 50+ (1 of 1 - PCV) 2008 ZOSTER VACCINE (1 of 2) 2008 COVID-19 VACCINE (1 - 2023-2 5 season) 2024 INFLUENZA VACCINE (#1) 2024 06/15/2020 DEPRESSION SCREENING 09/07/2024 Respiratory Syncytial Virus (RSV) Vaccine Pt: or over 60 yrs (1 - 1-dose 75+ series) 2033 HEPATITIS B VACCINE Aged Out No longe r eligible based on patient's age to complete this topic HIB VACCINE Aged Out No longer eligi ble based on patient's age to complete this topic HPV VACCINE Aged Out No longer eligi ble based on patient's age to complete this topic MENINGOCOCCAL (Group B) VACCINE Aged Out No longer eligible based on patient's age to complete this topic MENINGOCOCCAL VACCINE Aged Out No mirna thi eligible based on patient's age to complete this topic ARSLAN,AYANA Personal/Family [address] [place] [address] ARSLAN,AYANA Personal/Family [facility] [place] [address] ARSLAN,AYANA Personal/Family [address] [place] [address] Arslan, Ayana Personal/Family Self 1960 [facility] [place] [address]
[2024-10-27 20:18] LABS: Basophils Absolute Auto 0.1 K/mm3 (0.0-0.1); Basophils Percent Auto 0.8 % (0.2-1.2); Eosinophils Absolute Auto 0.3 K/mm3 (0-0.3); Eosinophils Percent Auto 4.1 % (0-4.4); Hematocrit 46.4 % (37.0-47.0); Immature Granulocyte Absolute 0.03 K/mm3 (0.00-0.031); Immature Granulocyte Percent A 0.5 % (0-0.5); Lymphocytes Absolute Auto 1.62 K/mm3 (0.9-3.2); Lymphocytes Percent Auto 24.4 % (18.3-44.2); Mean Corpuscular HGB Conc 32.3 g/dl (32-36); Mean Corpuscular Hemoglobin 28.8 pg (26-34); Mean Corpuscular Volume 89.1 fl (80-100); Mean Platelet Volume 10.8 fl (7.4-10.4); Monocytes Absolute Auto 0.5 K/mm3 (0.1-0.6); Monocytes Percent Auto 6.9 % (2.6-8.5); Neutrophils Absolute Auto 4.2 K/mm3 (1.3-6.7); Neutrophils Percent Auto 63.3 % (45.5-73.1); Platelet Count Result 171 k/mm3 (150-375); Red Blood Count 5.21 M/mm3 (4.2-5.4); Red Cell Distribution Width 13.8 % (11.5-14.5); White Blood Count 6.7 K/mm3 (4.5-10.0)
[2024-10-27 20:21] LABS: Alanine Aminotransferase 17 U/L (6-35); Albumin Level 4.3 g/dL (3.5-5.1); Alkaline Phosphatase 63 U/L (38-126); Anion Gap 7 mmol/L (4-12); Aspartate Amino Transferase 30 U/L (14-36); Bilirubin,Total 0.8 mg/dL (0.2-1.3); Blood Urea Nitrogen 26 mg/dL (7-17); Calcium 9.5 mg/dL (8.4-10.2); Carbon Dioxide 32 mmol/L (22-30); Chloride 104 mmol/L (98-107); Cholesterol 145 mg/dL (0-200); Estimated Glomerular Filt Rate > 60; Glucose 74 mg/dL (65-110); HDL Direct 71 mg/dL; Potassium 4.1 mmol/L (3.4-5.0); Sodium 143 mmol/L (137-145); Triglycerides 149 mg/dL (<150)
[2024-10-27 20:32] LABS: LDL Cholesterol Direct 57 mg/dL
[2024-10-27 20:41] LABS: Vitamin D 25 Hydroxy 44.4 ng/mL
[2024-10-27 21:06] LABS: Hemoglobin A1C 5.5 % (<5.7)
== END 2024-10-27 08:11 | disposition home or self-care (01) ==
PROVIDERS: PCP Family Medicine; Visit Provider Family Medicine
DX: E78.5 Hyperlipidemia, unspecified (principal); R73.03 Prediabetes; I10 Essential (primary) hypertension; E55.9 Vitamin D deficiency, unspecified; E53.8 Deficiency of other specified B group vitamins
CPT/HCPCS: 36415; 80053; 80061; 82306; 82607; 83036; 84443; 85025

== ENCOUNTER 2024-11-15 10:37 | Outpatient (CLI) | payer MEDICARE, SELFPAY ==
--- OUTSIDE RECORDS SUMMARY | 2024-11-15 12:07 | XMS_ITS | Referral Summary ---
Author Organization [facility] [employer] Address [address] [facility] [place] [address] Care Team Providers Care Potato Bucker Name Role Phone Unavailable Primary Care Provider Unavailabl e Source Comments [facility] [employer],non-owned Affiliates and Associated Physician Practices is amultiple site organization consisting of ambulatory clinics and hospital sitesin [place], [place], [place] and [place]. This disclosure is being madepursuant to the Care Everywhere program and may not contain all information available regarding this patient. Last updated 18.[facility] [employer] Immunizations Name Administration Dates Next Due INFLUENZA [...] file AYANA PENNINGTON Personal/Family [address] [place] [address] AYANA PENNINGTON Personal/Family [address] [place] [address] AYANA PENNINGTON Personal/Family [address] [place] [address] Ayana Pennington Personal/Family Self 1960 [address] [place] [address]
--- OUTSIDE RECORDS SUMMARY | 2024-11-15 12:07 | XMS_ITS | Clinical Summary ---
Author Organization [facility] [address] Address [address] [place] [address] Care Team Providers Care Wood Coater Name Role Phone Karen Ardon MD Primary Care Provider Allergies No known active allergies Medications aspirin 81 mg enteric coated tablet Take 1 tablet (81 mg total) by mouth daily Active multivit-min/iron/f olic/lutein (CENTRUM SILVER WOMEN ORAL) Active cholecalciferol (VITAMIN D-3) 2000 unit tablet Active metoprolol XL (TOPROL-XL) 25 mg extended release tablet 2 Active alendronate (Fosamax) 70 mg tablet 2 Active neomycin-polymyxin- dexAMETHasone (MAXITROL) 3.5mg/mL-10,000 unit/mL-0.1 % ophthalmic suspension 3 Active rosuvastatin (CRESTOR) 40 mg tabletIndications:C oronary artery disease involving [place] coronary artery of [place] heart without angina pectoris,Mixed hyperlipidemia TAKE 1 TABLET BY MOUTH DAILY 90 tablet 3 4 Active triamterene-hydroCH LOROthiazide (MAXZIDE,DYAZIDE) 75-50 mg per tablet Take 0.5 tablets by mouth daily Active Active Problems Problem Noted Date Diagnosed Date Class 2 obesity without serious comorbidity in a dult 02/05/2022 TRINI (obstructive sleep apnea) 01/24/2021 Coronary artery disease invo lving [place] coronary artery of [place] heart without angina pectoris 01/10/2020 Essential hypertension 01/10/2020 Mixed hyperlipidemia 01/10/2020 Palpitations 01/10/2020 PAC (premature atrial contraction) 01/10/2020 Pre-diabetes 01/10/2020 Bradycardia 01/10/2020 Resolved Problems Problem Noted Date Diagnosed Date Resolved Date Preoperative cardiovascular examination 01/24/2021 02/05/2022 Gross hematuria 01/11/2020 01/24/2021 Morbid obesity with BMI of 40.0-44.9, adult 01/10/2020 02/05/2022 Encounters Date Type Department Care Team Description 10/24/2024 10:00 AM STORAGE BATTERY CHARGER Ancillary Procedure [facility] Medical Group Cardiology at [address] [place] [address] PAC (premature atrial contraction) 10/24/2024 Telephone [facility] Medical [facility] Cardiology [address] [place] [address] Vlad Acosta MD 09/29/2024 11:30 AM STORAGE BATTERY CHARGER Office Visit [facility] Medical Group Cardiology at [address] [place] [phone] Vlad Acosta MD Essential hypertension (Primary Dx); PAC (premature atrial contraction) from Last 3 Months Surgical History Surgery [...] Name Comments Clotting disorder Brother 1 Derrell Richie Seizures Brother 1 Derrell Richie Valvular heart disease Brother 1 Derrell Richie Atrial fibrillation Brother 2 Alcohol abuse Father Gordy Blands COPD Father Gordy Blands Arthritis Mother Phyllis Quiroz Hypertension Mother Phyllis Quiroz Relation Name Status Comments Brother 1 Derrellstanley Godinezdams Alive Brother 2 Alive Father Gordy Blands (Age 79) Mother Phyllis Quiroz Alive Social [...] on file Legal Sex Female 8:07 PM STORAGE BATTERY CHARGER Gender Identity Not on file Sexual Orientation Not on file Obstetrics History Last Filed Vital Signs Vital Sign Reading Time Taken Comments Blood Pressure 138/88 09/29/2024 11:25 AM STORAGE BATTERY CHARGER Pulse 64 09/29/2024 11:25 AM STORAGE BATTERY CHARGER Temperature - - Respiratory Rate - - Oxygen Saturation 96% 09/29/2024 11:25 AM STORAGE BATTERY CHARGER Inhaled Oxygen Concentration - - Weight 91.2 kg (201 lb) 09/29/2024 11:25 AM STORAGE BATTERY CHARGER Height 162.6 cm (5' 4 ) 09/29/2024 11:25 AM STORAGE BATTERY CHARGER Body Mass Index 34.5 09/29/2024 11:25 AM STORAGE BATTERY CHARGER Plan of Treatment Health Maintenance Due Date [...] Vaccine (2 - Td or Tdap) 04/14/202604/2016 Procedures Procedure Name Priority Date/Time Associated Diagnosis Comments HOLTER MONITOR 24 HR Routine 10/24/2024 11:01 AM STORAGE BATTERY CHARGER PAC (premature atrial contraction) from Last 3 Months Results * 24 HR Holter Monitor (10/24/2024 11:01 AM STORAGE BATTERY CHARGER) Anatomical Region Laterality Modality Electrocardiogra phy Narrative 11/01/2024 7:04 AM STORAGE BATTERY CHARGER AMBULATORY BRAKE LINING MAKER REPORT Patient Name: Ayana Pennington Date of : 1960 Requesting Physician: Dave Date of interpretation: 11/01/24 Type of monitor : 24 hour Holter Date of the study/Enrollment period: October 24, 2024 Indication: Follow-up AV node dysfunction Quality of the study: Favorable Interpretation: The basic rhythm is sinus with normal AL QRS and QT intervals. The heart rate varies from a minimum of 43 to a maximum of 113 with an average rate of 67. There was 1 nonconducted sinus complexes resulting in a pause with an RR interval of 2.2 seconds. This occurred at 9:34 a.m.. There were no other examples of AV node dysfunction. There were common examples of nonconducted APCs. Supraventricular ectopic activity consists of frequent PACs some of which are nonconducted as detailed above. There were no examples of atrial fibrillation. Total PAC burden is less than 1%. Ventricular ectopic activity consisted of single PVCs occurring infrequently with a total PVC burden of less than 1%. There were no ventricular couplets or runs No patient's symptoms were reported Conclusions: Sinus rhythm with normal heart rate variability 1 episode of nonconducted sinus P wave as detailed above occurring at 9:34 a.m. with no symptoms and a 2.2nd pause at this time Compared with previous monitor AV node dysfunction is improved after withdrawal of beta-missy treatment Voice recognition software was used to complete this document, therefore, financial operations clerk variances may occur. Vlad Acosta MD [facility] 11/01/24 Vlad Acosta MD [facility] PROC EDURES Final Result from Last 3 Months Insurance [facility] MEDICARE [facility] [employer] MEDICARE [facility] MEDICARE SUPPLEMENT Care Teams Wood Coater Relationship Specialty Start Date End Date Karen Ardon MD PCP - General Family Practice 12/03/18
--- OUTSIDE RECORDS SUMMARY | 2024-11-15 12:07 | XMS_ITS | Referral Summary ---
Author Organization [facility] [address] [facility] [address] Address [address] [place] [address] Care Team Providers Care Telephone Cleaner Name Role Phone Karen Ardon MD Primary Care Provider Encounters Date Type Department Care Team Description 10/24/2024 Telephone [facility] Medical [facility] Cardiology [address] [facility] [address] [place] [address] Vlad Acosta MD 10/24/2024 10:00 AM SCHOOL PSYCHOLOGY PROFESSOR Ancillary Procedure [facility] Medical Group Cardiology at [address] [place] [address] PAC (premature atrial contraction) 09/29/2024 11:30 AM SCHOOL PSYCHOLOGY PROFESSOR Office Visit [facility] Medical Group Cardiology at [address] [place] [phone] Vlad Acosta MD Essential hypertension (Primary Dx); PAC (premature atrial contraction) from Last 3 Months Allergies No known [...] 40 mg tabletIndications:C oronary artery disease involving [place] coronary artery of [place] heart without angina pectoris,Mixed hyperlipidemia TAKE 1 TABLET BY MOUTH DAILY 90 tablet 3 4 Active triamterene-hydroCH LOROthiazide (MAXZIDE,DYAZIDE) 75-50 mg per tablet Take 0.5 tablets by mouth daily Active Active Problems Problem Noted Date Diagnosed Date Class 2 obesity without serious comorbidity in a dult 02/05/2022 TRINI (obstructive sleep apnea) 01/24/2021 Coronary artery disease invo lving [place] coronary artery of [place] heart without angina pectoris 01/10/2020 Essential hypertension [...] on file Legal Sex Female 8:07 PM SCHOOL PSYCHOLOGY PROFESSOR Gender Identity Not on file Sexual Orientation Not on file Last Filed Vital Signs Vital Sign Reading Time Taken Comments Blood Pressure 138/88 09/29/2024 11:25 AM SCHOOL PSYCHOLOGY PROFESSOR Pulse 64 09/29/2024 11:25 AM SCHOOL PSYCHOLOGY PROFESSOR Temperature - - Respiratory Rate - - Oxygen Saturation 96% 09/29/2024 11:25 AM SCHOOL PSYCHOLOGY PROFESSOR Inhaled Oxygen Concentration - - Weight 91.2 kg (201 lb) 09/29/2024 11:25 AM SCHOOL PSYCHOLOGY PROFESSOR Height 162.6 cm (5' 4 ) 09/29/2024 11:25 AM SCHOOL PSYCHOLOGY PROFESSOR Body Mass Index 34.5 09/29/2024 11:25 AM SCHOOL PSYCHOLOGY PROFESSOR Plan of Treatment Not on file Procedures Procedure Name Priority Date/Time Associated Diagnosis Comments HOLTER MONITOR 24 HR Routine 10/24/2024 11:01 AM SCHOOL PSYCHOLOGY PROFESSOR PAC (premature atrial contraction) from Last 3 Months Results * 24 HR Holter Monitor (10/24/2024 11:01 AM SCHOOL PSYCHOLOGY PROFESSOR) Anatomical Region Laterality Modality Electrocardiogra phy Narrative 11/01/2024 7:04 AM SCHOOL PSYCHOLOGY PROFESSOR AMBULATORY COW TENDER REPORT Patient Name: Ayana Pennington Date of : 1960 Requesting Physician: Dave Date of interpretation: 11/01/24 Type of monitor : 24 hour Holter Date of the study/Enrollment period: October 24, 2024 Indication: Follow-up AV node dysfunction Quality of the study: Favorable Interpretation: The basic rhythm is sinus with normal [place] QRS and QT intervals. The heart rate [...] was used to complete this document, therefore, hot iron worker variances may occur. Vlad Acosta MD [facility] 11/01/24 Vlad Acosta MD CV CARDIAC SERVICES PROC EDURES Final Result from Last 3 Months Insurance [facility] H[facility]/PPO Address: [address] [address] [place] [address] MEDICARE [facility] CORE HEALTH PLAN [facility] HMO/PPO Address: [address] [place] [address] [address] [place] [address] MEDICARE [facility] MEDICARE SUPPLEMENT Care Teams Telephone Cleaner Relationship Specialty Start Date End Date Karen Ardon MD PCP - General Family Practice 12/03/18
--- OUTSIDE RECORDS SUMMARY | 2024-11-15 12:07 | XMS_ITS | Patient Health Summary ---
Author Organization [facility] [employer] / ?.?? Address [address] [place] [address] Care Team Providers Care Reflector Driller And Deburrer Name Role Phone Unavailable Primary Care Provider Unavailabl e Note from [facility],non-owned Affiliates and Associated Physician Practices is amultiple site organization consisting of ambulatory clinics and hospital sitesin [place], [place], [place] and [place]. This disclosure is being madepursuant to the Care Everywhere program and may not contain all information available regarding this patient. Last updated 18.[facility] Immunizations * INFLUENZA VACCINE, QUADR. (FLUZONE; FLULAVAL; FLUARIX; AFLURIA QUADRIVALENT; 6MO+), 0.5 ML (IIV4)(Given 06/15/2020) Social History Tobacco Use Types Packs/Day Years Used Date Smoking Tobacco: Never Assessed Sex and Gender Information Value Date Recorded Sex Assigned at Not on file Gender Identity Not on file Sexual Orientation Not on file
--- OUTSIDE RECORDS SUMMARY | 2024-11-15 12:07 | XMS_ITS | Clinical Summary ---
Author Organization [facility] [employer] Address [address] [facility] [place] [address] Care Team Providers Care Tinter Photograph Name Role Phone Unavailable Primary Care Provider Unavailabl e Source Comments [facility] [employer],non-owned Affiliates and Associated Physician Practices is amultiple site organization consisting of ambulatory clinics and hospital sitesin [place], [place] and [place]. This disclosure is being madepursuant to the Care Everywhere program and may not contain all information available regarding this patient. Last updated 18.[facility] [employer] Immunizations Name Administration Dates Next Due INFLUENZA [...] this topic ARSLAN,AYANA Personal/Family [address] [place] [address] ARSLAN,AYANA Personal/Family [facility] [place] [address] ARSLAN,AYANA Personal/[address] [place] [address] Arslan, Ayana Personal/Family Self 1960 [facility] [place] [address]
[2024-11-15 14:04] LABS: Anion Gap 7 mmol/L (4-12); Blood Urea Nitrogen 32 mg/dL (7-17); Calcium 9.4 mg/dL (8.4-10.2); Carbon Dioxide 32 mmol/L (22-30); Chloride 103 mmol/L (98-107); Estimated Glomerular Filt Rate > 60; Glucose 81 mg/dL (65-110); Potassium 4.1 mmol/L (3.4-5.0); Sodium 142 mmol/L (137-145)
== END 2024-11-15 10:38 | disposition home or self-care (01) ==
PROVIDERS: PCP Family Medicine; Visit Provider Family Medicine
DX: I10 Essential (primary) hypertension (principal); Z79.899 Other long term (current) drug therapy
CPT/HCPCS: 36415; 80048

== ENCOUNTER 2024-12-06 11:29 | Outpatient (CLI) | payer MEDICARE, BC, SELFPAY ==
--- OUTSIDE RECORDS SUMMARY | 2024-12-06 12:55 | XMS_ITS | Clinical Summary ---
Author Organization [facility] [employer] Address [address] [facility] [place] [address] Care Team Providers Care Histology Technologist Name Role Phone Unavailable Primary Care Provider Unavailabl e Source Comments [facility] [employer],non-owned Affiliates and Associated Physician Practices is amultiple site organization consisting of ambulatory clinics and hospital sitesin [place], [place], [place] and [place]. This disclosure is being madepursuant to the Care Everywhere program and may not contain all information available regarding this patient. Last updated 18.[facility] [employer] Immunizations Name Administration Dates Next Due INFLUENZA [...] VACCINE (1 - 2023-2 5 season) 2024 DEPRESSION SCREENING 09/07/2024 INFLUENZA VACCINE (Season Ended) 2025 06/15/20 Respiratory Syncytial Virus (RSV) Vaccine Pt: or [...] to complete this topic MENINGOCOCCAL (Group B) VACC INE SHARED DECISION-MAKING Aged Out No longer eligibl e based on patient's age to complete this topic MENINGOCOCCAL GROUPS A/C/Y/W VACCINE Aged Out No longer eligible b ased on patient's age to complete this topic ARSLAN,AYANA Personal/[place] [address] ARSLAN,AYANA Personal/[place] [address] ARSLAN,[place] [address] AYANA MCDANIELS Personal/[place] [address] AYANA MCDANIELS Personal/[place] [address] Ayana Mcdaniels Personal/Family Self 1960 [facility] [place] [address]
--- OUTSIDE RECORDS SUMMARY | 2024-12-06 12:55 | XMS_ITS | Clinical Summary ---
Author Organization [facility] [address] Address [address] [place] [address] Care Team Providers Care Cloth Booker Name Role Phone Karen Ardon MD Primary [...] 40 mg tabletIndications:C oronary artery disease involving [place] coronary artery of [place] heart without angina pectoris,Mixed hyperlipidemia TAKE 1 TABLET BY MOUTH DAILY 90 tablet 3 4 Active triamterene-hydroCH LOROthiazide (MAXZIDE,DYAZIDE) 75-50 mg per tablet Take 0.5 tablets by mouth daily Active Active Problems Problem Noted Date Diagnosed Date Class 2 obesity without serious comorbidity in a dult 02/05/2022 TRINI (obstructive sleep apnea) 01/24/2021 Coronary artery disease invo lving [place] coronary artery of [place] heart without angina pectoris 01/10/2020 Essential hypertension 01/10/2020 Mixed hyperlipidemia 01/10/2020 Palpitations 01/10/2020 PAC (premature atrial contraction) 01/10/2020 Pre-diabetes 01/10/2020 Bradycardia 01/10/2020 Resolved Problems Problem Noted Date Diagnosed Date Resolved Date Preoperative cardiovascular examination 01/24/2021 02/05/2022 Gross hematuria 01/11/2020 01/24/2021 Morbid obesity with BMI of 40.0-44.9, adult 01/10/2020 02/05/2022 Encounters Date Type Department Care Team Description 10/24/2024 10:00 AM CHEMICAL COMPOUNDER HELPER Ancillary Procedure [facility] Medical Group Cardiology at [address] [place] [address] PAC (premature atrial contraction) 10/24/2024 Telephone [facility] Medical [facility] Cardiology [address] [place] [address] Vlad Acosta MD 09/29/2024 11:30 AM CHEMICAL COMPOUNDER HELPER Office Visit [facility] Medical Group Cardiology at [address] [place] [phone] Vlad Acosta MD Essential hypertension (Primary Dx); [...] on file Legal Sex Female 8:07 PM CHEMICAL COMPOUNDER HELPER Gender Identity Not on file Sexual Orientation Not on file Obstetrics History Last Filed Vital Signs Vital Sign Reading Time Taken Comments Blood Pressure 138/88 09/29/2024 11:25 AM CHEMICAL COMPOUNDER HELPER Pulse 64 09/29/2024 11:25 AM CHEMICAL COMPOUNDER HELPER Temperature - - Respiratory Rate - - Oxygen Saturation 96% 09/29/2024 11:25 AM CHEMICAL COMPOUNDER HELPER Inhaled Oxygen Concentration - - Weight 91.2 kg (201 lb) 09/29/2024 11:25 AM CHEMICAL COMPOUNDER HELPER Height 162.6 cm (5' 4 ) 09/29/2024 11:25 AM CHEMICAL COMPOUNDER HELPER Body Mass Index 34.5 09/29/2024 11:25 AM CHEMICAL COMPOUNDER HELPER Plan of Treatment Health Maintenance Due Date [...] MONITOR 24 HR Routine 10/24/2024 11:01 AM CHEMICAL COMPOUNDER HELPER PAC (premature atrial contraction) from Last 3 Months Results * 24 HR Holter Monitor (10/24/2024 11:01 AM CHEMICAL COMPOUNDER HELPER) Anatomical Region Laterality Modality Electrocardiogra phy Narrative 11/01/2024 7:04 AM CHEMICAL COMPOUNDER HELPER AMBULATORY TRANSIT PROOF MACHINE OPERATOR REPORT Patient Name: Ayana Pennington Date of : 1960 Requesting Physician: Dave Date of interpretation: 11/01/24 Type of monitor : 24 hour Holter Date of the study/Enrollment period: October 24, 2024 Indication: Follow-up AV node dysfunction Quality of the study: Favorable Interpretation: The basic rhythm is sinus with normal [place] QRS and QT intervals. The heart rate [...] was used to complete this document, therefore, ornamental machine operator variances may occur. Vlad Acosta MD [facility] 11/01/24 Vlad Acosta MD CV CARDIAC SERVICES PROC EDURES Final Result from Last 3 Months Insurance [facility] [place] H[place]/PPO Address: [address] [address] [place] [address] MEDICARE [facility] CORE HEALTH PLAN [facility] [place] H[place]/PPO Address: [address] [place] [address] MEDICARE [facility] MEDICARE SUPPLEMENT Care Teams Cloth Booker Relationship Specialty Start Date End Date Karen Ardon MD PCP - General Family Practice 12/03/18
--- OUTSIDE RECORDS SUMMARY | 2024-12-06 12:55 | XMS_ITS | Referral Summary ---
Author Organization [facility] [address] [facility] [address] Address [address] [place] [address] Care Team Providers Care Geek Squad Agent Name Role Phone Karen Ardon MD Primary Care Provider Encounters Date Type Department Care Team Description 10/24/2024 Telephone [facility] Medical [facility] Cardiology [address] [facility] [address] [place] [address] Vlad Acosta MD 10/24/2024 10:00 AM FORWARD AIR CONTROLLER/AIR OFFICER Ancillary Procedure [facility] Medical Group Cardiology at [address] [place] [address] PAC (premature atrial contraction) 09/29/2024 11:30 AM FORWARD AIR CONTROLLER/AIR OFFICER Office Visit [facility] Medical Group Cardiology at [address] [place] [phone] Vlad Acosta MD Essential hypertension (Primary Dx); [...] 40 mg tabletIndications:C oronary artery disease involving [place] coronary artery of [place] heart without angina pectoris,Mixed hyperlipidemia TAKE 1 TABLET BY MOUTH DAILY 90 tablet 3 4 Active triamterene-hydroCH LOROthiazide (MAXZIDE,DYAZIDE) 75-50 mg per tablet Take 0.5 tablets by mouth daily Active Active Problems Problem Noted Date Diagnosed Date Class 2 obesity without serious comorbidity in a dult 02/05/2022 TRINI (obstructive sleep apnea) 01/24/2021 Coronary artery disease invo lving [place] coronary artery of [place] heart without angina pectoris 01/10/2020 Essential hypertension [...] on file Legal Sex Female 8:07 PM FORWARD AIR CONTROLLER/AIR OFFICER Gender Identity Not on file Sexual Orientation Not on file Last Filed Vital Signs Vital Sign Reading Time Taken Comments Blood Pressure 138/88 09/29/2024 11:25 AM FORWARD AIR CONTROLLER/AIR OFFICER Pulse 64 09/29/2024 11:25 AM FORWARD AIR CONTROLLER/AIR OFFICER Temperature - - Respiratory Rate - - Oxygen Saturation 96% 09/29/2024 11:25 AM FORWARD AIR CONTROLLER/AIR OFFICER Inhaled Oxygen Concentration - - Weight 91.2 kg (201 lb) 09/29/2024 11:25 AM FORWARD AIR CONTROLLER/AIR OFFICER Height 162.6 cm (5' 4 ) 09/29/2024 11:25 AM FORWARD AIR CONTROLLER/AIR OFFICER Body Mass Index 34.5 09/29/2024 11:25 AM FORWARD AIR CONTROLLER/AIR OFFICER Plan of Treatment Not on file Procedures Procedure Name Priority Date/Time Associated Diagnosis Comments HOLTER MONITOR 24 HR Routine 10/24/2024 11:01 AM FORWARD AIR CONTROLLER/AIR OFFICER PAC (premature atrial contraction) from Last 3 Months Results * 24 HR Holter Monitor (10/24/2024 11:01 AM FORWARD AIR CONTROLLER/AIR OFFICER) Anatomical Region Laterality Modality Electrocardiogra phy Narrative 11/01/2024 7:04 AM FORWARD AIR CONTROLLER/AIR OFFICER AMBULATORY APPOINTMENT SPECIALIST REPORT Patient Name: Ayana Pennington Date of : 1960 Requesting Physician: Dave Date of interpretation: 11/01/24 Type of monitor : 24 hour Holter Date of the study/Enrollment period: October 24, 2024 Indication: Follow-up AV node dysfunction Quality of the study: Favorable Interpretation: The basic rhythm is sinus with normal [place] QRS and QT intervals. The heart rate [...] was used to complete this document, therefore, seismograph observer variances may occur. Vlad Acotsa MD [facility] 11/01/24 Vlad Acosta MD CV CARDIAC SERVICES PROC EDURES Final Result from Last 3 Months Insurance [facility] H[facility]/PPO Address: [address] [address] [place] [address] MEDICARE [facility] H[facility]/PPO Address: [address] [place] [address] [address] [address] MEDICARE [facility] MEDICARE SUPPLEMENT Care Teams Geek Squad Agent Relationship Specialty Start Date End Date Karen Ardon MD PCP - General Family Practice 12/03/18
[2024-12-06 14:30] LABS: Magnesium 2.2 mg/dL (1.6-2.3)
[2024-12-07 12:03] LABS: Red Blood Cell Folate 463 ng/mL RBC (>280)
[2024-12-08 13:14] LABS: Homocysteine 9.7 umol/L (<10.4)
[2024-12-10 00:58] LABS: Methylmalonic Acid 105 nmol/L (69-390)
== END 2024-12-06 11:30 | disposition home or self-care (01) ==
PROVIDERS: Visit Provider Psychiatry & Neurology Neurology
DX: I35.0 Nonrheumatic aortic (valve) stenosis (principal); R40.20 Unspecified coma; I10 Essential (primary) hypertension; I44.1 Atrioventricular block, second degree; I47.10 Supraventricular tachycardia, unspecified; E55.9 Vitamin D deficiency, unspecified
CPT/HCPCS: 36415; 82607; 82652; 82747; 83090; 83735; 83921

== ENCOUNTER 2024-12-19 13:57 | Outpatient (CLI) | payer MEDICARE, SELFPAY ==
--- NOTE | ~2024-12-19 | MR_ITS ---
MRI of the brain Clinical History: Multiple sclerosis Technique: Axial and sagittal T1-weighted images were acquired. These were followed by axial T2-weigh winsome, diffusion weighted, gradient, and FLAIR images. Following intravenous administration of 20 cc Pr oHance gadolinium, T1-weighted fat-sat imaging was performed in the axial, sagittal, and coronal plan es. Findings: No abnormal signal seen in the brain parenchyma. No acute infarct, internal hemorrhage or m ass lesion. No white matter lesions are identified. Ventricles and subarachnoid spaces are unremarkable. Orbits are unremarkable. Paranasal sinuses and m astoid air cells are clear. Major intracranial flow voids are intact. Sagittal midline structures are intact. No abnormal postcontrast enhancement identified. IMPRESSION: Unremarkable exam. Reviewed, dictated and finalized at location . IMPRESSION: Unremarkable exam.
--- NOTE | ~2024-12-19 | XR_ITS ---
4 VIEWS SKULL Ordering provider: Prabhakar Barnes MD History: . EAR IMPLANT MRI CLEARING LEFT EAR . Comparison: None. FINDINGS: BONES: No fracture. Hyperostosis frontalis interna is noted. RADIO OPAQUE FOREIGN BODY: None. SOFT TISSUES: Normal. IMPRESSION: Normal study. No definite radiopaque foreign bodies seen. Reviewed, dictated and finalized at location A.
--- NOTE | ~2024-12-19 | US_ITS ---
EXAMINATION: US carotid duplex BI DATE: 12/19/2024 16:00 CDT INDICATION: Syncope and vertigo TECHNIQUE: Grayscale, color Doppler, and pulsed Doppler images of the cervical carotid arteries were obtained. The degree of vessel stenosis is placed in one of the following categories: normal, <50%, 50-69%, >=7 0% but less than near-occlusion, near-occlusion, or total occlusion. Note that percent stenosis relative to normal distal artery lumen diameter is indirectly measured fro m velocity measurements as described originally by Julian, et al. Radiology 2003; 229:340-346 and upda winsome by Yosef Irby et al STROKE 2012;43(3);915-921. COMPARISON: None. FINDINGS: There is mild atherosclerosis of both carotid arteries. Peak systolic velocity (in cm/s) is detailed below RIGHT: Right common carotid artery (CCA): 87 cm/s. Right internal carotid artery (ICA) PSV: 83 cm/s. Right ICA end-diastolic velocity (EDV): 26 cm/s. Right ICA/CCA PSV ratio is 1.0. Right external carotid artery (ECA): 91cm/s. There is antegrade flow in the right vertebral artery. LEFT: Left common carotid artery (CCA): 94 cm/s. Left internal carotid artery (ICA) PSV: 90 cm/s. Left ICA end-diastolic velocity (EDV): 25 cm/s. Left ICA/CCA PSV ratio is 1.3. Left external carotid artery (ECA): 108cm/s. There is antegrade flow in the left vertebral artery. IMPRESSION: 1. Less than 50% stenosis in the right internal carotid artery. 2. Less than 50% stenosis in the left internal carotid artery. Reviewed, dictated and finalized at location A.
--- OUTSIDE RECORDS SUMMARY | 2024-12-19 15:36 | XMS_ITS | Clinical Summary ---
Author Organization [facility] [address] Address [address] [place] [address] Care Team Providers Care Silo Man Name Role Phone Karen Ardon MD Primary [...] 3.5mg/mL-10,000 unit/mL-0.1 % ophthalmic suspension 3 Active triamterene-hydroC HLOROthiazide (MAXZIDE,DYAZIDE) 75-50 mg per tablet Take 0.5 tablets by mouth daily Active rosuvastatin (CRESTOR) 40 mg tabletIndications: Coronary artery disease involving [place] coronary artery of [place] heart without angina pectoris,Mixed hyperlipidemia Take 1 tablet (40 mg total) by mouth daily 90 tablet 3 5 Active rosuvastatin (CRESTOR) 40 mg tabletIndications: Coronary artery disease involving [place] coronary artery of [place] heart without angina pectoris,Mixed hyperlipidemia TAKE 1 TABLET BY MOUTH DAILY 90 tablet 3 4 12/10/19 25 Discontin ued(Reord er) rosuvastatin (CRESTOR) 40 mg tabletIndications: Coronary artery disease involving [place] coronary artery of [place] heart without angina pectoris,Mixed hyperlipidemia Take 1 tablet (40 mg total) by mouth daily 90 tablet 3 5 12/10/19 25 Discontin ued(Reord er) Active Problems Problem Noted Date Diagnosed Date Class 2 obesity without serious comorbidity in a dult 02/05/2022 TRINI (obstructive sleep apnea) 01/24/2021 Coronary artery disease invo lving [place] coronary artery of [place] heart without angina pectoris 01/10/2020 Essential hypertension 01/10/2020 Mixed hyperlipidemia 01/10/2020 Palpitations 01/10/2020 PAC (premature atrial contraction) 01/10/2020 Pre-diabetes 01/10/2020 Bradycardia 01/10/2020 Resolved Problems Problem Noted Date Diagnosed Date Resolved Date Preoperative cardiovascular examination 01/24/2021 02/05/2022 Gross hematuria 01/11/2020 01/24/2021 Morbid obesity with BMI of 40.0-44.9, adult 01/10/2020 02/05/2022 Encounters Date Type Department Care Team Description 10/24/2024 10:00 AM TECHNICAL SALES ADVISOR Ancillary Procedure [facility] Medical Group Cardiology at [address] [place] [phone] PAC (premature atrial contraction) 10/24/2024 Telephone [facility] Medical Group Cardiology [address] [facility] [address] [place] [address] Vlad Acosta MD 09/29/2024 11:30 AM TECHNICAL SALES ADVISOR Office Visit [facility] Medical Group Cardiology at [address] [place] [address] Vlad Acosta MD Essential hypertension [...] Name Comments Clotting disorder Brother 1 Derrell Quiroz Seizures Brother 1 Derrell Quiroz Valvular heart disease Brother 1 Derrell Quiroz Atrial fibrillation Brother 2 Alcohol abuse Father Gordy Quiroz COPD Father Gordy Quiroz Arthritis Mother Phyllis Quiroz Hypertension Mother Phyllis Quiroz Relation Name Status Comments Brother 1 Derrell Quiroz Alive Brother 2 Alive Father Gordy Quiroz [...] on file Legal Sex Female 8:07 PM TECHNICAL SALES ADVISOR Gender Identity Not on file Sexual Orientation Not on file Obstetrics History Last Filed Vital Signs Vital Sign Reading Time Taken Comments Blood Pressure 138/88 09/29/2024 11:25 AM TECHNICAL SALES ADVISOR Pulse 64 09/29/2024 11:25 AM TECHNICAL SALES ADVISOR Temperature - - Respiratory Rate - - Oxygen Saturation 96% 09/29/2024 11:25 AM TECHNICAL SALES ADVISOR Inhaled Oxygen Concentration - - Weight 91.2 kg (201 lb) 09/29/2024 11:25 AM TECHNICAL SALES ADVISOR Height 162.6 cm (5' 4 ) 09/29/2024 11:25 AM TECHNICAL SALES ADVISOR Body Mass Index 34.5 09/29/2024 11:25 AM TECHNICAL SALES ADVISOR Plan of Treatment Health Maintenance Due Date Last Done Comments Breast Cancer Screening-Mammogram 1960 Colon Cancer Screening-Colonoscopy 1960 Depression Screening 1960 Fall Risk Assessment 1960 Hepatitis C Screening 1960 Osteoporosis Screening-Bone Density Scan 1960 Hepatitis B Screening 1976 Pneumococcal vaccine 65+ (1 of 1 - PCV) 2008 Zoster Vaccine (1 of 2) 2008 Well Visit 65+ 2023 Influenza Vaccine (Season Ended) 2025 06/15/20 20 DTaP/Tdap/Td Vaccine (2 - Td or Tdap) 04/14/202604/2016 Procedures Procedure Name Priority Date/Time Associated Diagnosis Comments HOLTER MONITOR 24 HR Routine 10/24/2024 11:01 AM TECHNICAL SALES ADVISOR PAC (premature atrial contraction) from Last 3 Months Results * 24 HR Holter Monitor (10/24/2024 11:01 AM TECHNICAL SALES ADVISOR) Anatomical Region Laterality Modality Electrocardiogra phy Narrative 11/01/2024 7:04 AM TECHNICAL SALES ADVISOR AMBULATORY ASSISTANT STORE MANAGER TRAINEE REPORT Patient Name: Ayana Pennington Date of : 1960 Requesting Physician: Dave Date of interpretation: 11/01/24 Type of monitor : 24 hour Holter Date of the study/Enrollment period: October 24, 2024 Indication: Follow-up AV node dysfunction Quality of the study: Favorable Interpretation: The basic rhythm is sinus with normal [place] QRS and QT intervals. The heart rate [...] was used to complete this document, therefore, religious education teacher variances may occur. Vlad Acosta MD [facility] 11/01/24 Vlad Acosta MD CV CARDIAC SERVICES PROC EDURES Final Result from Last 3 Months Insurance [facility] MEDICARE [facility] CORE HEALTH PLAN MEDICARE [facility] MEDICARE SUPPLEMENT Care Teams Silo Man Relationship Specialty Start Date End Date Karen Ardon MD PCP - General Family Practice 12/03/18
--- OUTSIDE RECORDS SUMMARY | 2024-12-19 15:36 | XMS_ITS | Referral Summary ---
Author Organization [facility] [address] [facility] [address] Address [address] [place] [address] Care Team Providers Care Psychology Assistant Name Role Phone Karen Ardon MD Primary Care Provider Encounters Date Type Department Care Team Description 10/24/[address] [facility] Cardiology [address] [facility] [address] [place] [address] Vlad Acosta MD 10/24/2024 10:00 AM BOW REHAIRER Ancillary Procedure [facility] Medical Group Cardiology at [address] [place] [address] PAC (premature atrial contraction) 09/29/2024 11:30 AM BOW REHAIRER Office Visit [facility] Medical Group Cardiology at [address] [place] [id number] Vlad Acosta MD Essential hypertension (Primary Dx); [...] 40 mg tabletIndications: Coronary artery disease involving sob[place] coronary artery of sob[place] heart without angina pectoris,Mixed hyperlipidemia Take 1 tablet (40 mg total) by mouth daily 90 tablet 3 5 Active rosuvastatin (CRESTOR) 40 mg tabletIndications: Coronary artery disease involving sob[place] coronary artery of sob[place] heart without angina pectoris,Mixed hyperlipidemia TAKE 1 TABLET BY MOUTH DAILY 90 tablet 3 4 12/10/19 25 Discontin ued(Reord er) rosuvastatin (CRESTOR) 40 mg tabletIndications: Coronary artery disease involving sob[place] coronary artery of sob[place] heart without angina pectoris,Mixed hyperlipidemia Take 1 tablet (40 mg total) by mouth daily 90 tablet 3 5 12/10/19 25 Discontin ued(Reord er) Active Problems Problem Noted Date Diagnosed Date Class 2 obesity without serious comorbidity in a dult 02/05/2022 TRINI (obstructive sleep apnea) 01/24/2021 Coronary artery disease invo lving soboba coronary artery of soboba heart without angina pectoris 01/10/2020 Essential hypertension [...] on file Legal Sex Female 8:07 PM BOW REHAIRER Gender Identity Not on file Sexual Orientation Not on file Last Filed Vital Signs Vital Sign Reading Time Taken Comments Blood Pressure 138/88 09/29/2024 11:25 AM BOW REHAIRER Pulse 64 09/29/2024 11:25 AM BOW REHAIRER Temperature - - Respiratory Rate - - Oxygen Saturation 96% 09/29/2024 11:25 AM BOW REHAIRER Inhaled Oxygen Concentration - - Weight 91.2 kg (201 lb) 09/29/2024 11:25 AM BOW REHAIRER Height 162.6 cm (5' 4 ) 09/29/2024 11:25 AM BOW REHAIRER Body Mass Index 34.5 09/29/2024 11:25 AM BOW REHAIRER Plan of Treatment Not on file Procedures Procedure Name Priority Date/Time Associated Diagnosis Comments HOLTER MONITOR 24 HR Routine 10/24/2024 11:01 AM BOW REHAIRER PAC (premature atrial contraction) from Last 3 Months Results * 24 HR Holter Monitor (10/24/2024 11:01 AM BOW REHAIRER) Anatomical Region Laterality Modality Electrocardiogra phy Narrative 11/01/2024 7:04 AM BOW REHAIRER AMBULATORY MOBILE SOLUTIONS ARCHITECT REPORT Patient Name: Ayana Pennington Date of : 1960 Requesting Physician: Dave Date of interpretation: 11/01/24 Type of monitor : 24 hour Holter Date of the study/Enrollment period: October 24, 2024 Indication: Follow-up AV node dysfunction Quality of the study: Favorable Interpretation: The basic rhythm is sinus with normal [place] QRS and QT intervals. The heart rate [...] was used to complete this document, therefore, whizzer operator variances may occur. Vlad Acosta MD [facility] 11/01/24 Vlad Acosta MD CV CARDIAC SERVICES PROC EDURES Final Result from Last 3 Months Insurance [facility] H[facility]/PPO Address: [address] [address] [place] [address] MEDICARE [facility] [employer] [facility] [place] H[facility]/PPO Address: [address] [place] [address] MEDICARE [facility] MEDICARE SUPPLEMENT Care Teams Psychology Assistant Relationship Specialty Start Date End Date Karen Ardon MD PCP - General Family Practice 12/03/18
--- OUTSIDE RECORDS SUMMARY | 2024-12-19 15:36 | XMS_ITS | Clinical Summary ---
Author Organization [facility] [employer] Address [address] [place] [address] Care Team Providers Care Analyst Sales Name Role Phone Unavailable Primary Care Provider Unavailabl e Source Comments [facility],non-owned Affiliates and Associated Physician Practices is amultiple site organization consisting of ambulatory clinics and hospital sitesin [place], [place], [place] and [place]. This disclosure is being madepursuant to the Care Everywhere program and may not contain all information available regarding this patient. Last updated 18.[facility] [employer] Immunizations Immunization Administration Dates Next Due INFLUENZA VACCINE, QUADR. (F LUZONE; FLULAVAL; FLUARIX; AFLURIA QUADRIVALENT; 6MO+), 0.5 ML (IIV4) 06/15/2020 Social History Tobacco Use Types Packs/Day Years Used Date Smoking Tobacco: Never Assessed Comments Unknown Sex and Gender Information Value Date Recorded Sex Assigned at Not on file Legal Sex Female 5:57 AM SPA COORDINATOR Gender Identity Not on file Sexual Orientation [...] 09/07/2024 INFLUENZA VACCINE (Season Ended) 2025 06/15/20 20 Respiratory Syncytial Virus (RSV) Vaccine Pt: or [...] on patient's age to complete this topic Insurance [facility] S[facility]F [facility] NO INSURANCE Member Subscriber Plan / Payer (Ef fective for All Dates) Name:Ayana Mcdaniels Member ID:Not on file Relation to Subscriber:Not on file Name:AYANA MCDANIELS Subscriber ID:Not on file (Home) Address: [facility] [place] [address] Payer ID:Not on file Group ID:Not on file Type:Self Pay Address: [place], [place] * Guarantor: AYANA MCDANIELS Account Type Relation to Patient Date of Phone Billing Address Personal/Family Spouse [facility] [place] [address] [employer] SELF PAY NO INSURANCE Member Subscriber Plan / Payer (Ef fective for All Dates) Name:Ayana Mcdaniels Member ID:Not on file Relation to Subscriber:Not on file Name:AYANA MCDANIELS Subscriber ID:Not on file (Home) Address: [facility] [place] [address] Payer ID:Not on file Group ID:Not on file Type:Self Pay Address: [place], [place] * Guarantor: AYANA MCDANIELS Account Type Relation to Patient Date of Phone Billing Address Personal/Family [facility] [place] [address] [employer] SELF PAY NO INSURANCE Member Subscriber Plan / Payer (Ef fective for All Dates) Name:Ayana Mcdaniels Member ID:Not on file Relation to Subscriber:Not on file Name:AYANA MCDANIELS Subscriber ID:Not on file (Home) Address: [facility] [address] Payer ID:Not on file Group ID:Not on file Type:Self Pay Address: [place], [place] * Guarantor: AYANA MCDANIELS Account Type Relation to Patient Date of Phone Billing Address Personal/Family [address] [place] [address] [employer] SELF PAY NO INSURANCE Member Subscriber Plan / Payer (Ef fective for All Dates) Name:Ayana Mcdaniels Member ID:Not on file Relation to Subscriber:Not on file Name:AYANA MCDANIELS Subscriber ID:Not on file (Home) Address: [address] [place] [place] [address] Payer ID:Not on file Group ID:Not on file Type:Self Pay Address: [place], [place] * Guarantor: AYANA MCDANIELS Account Type Relation to Patient Date of Phone Billing Address Personal/Family [address] [place] [address] [employer] SELF PAY NO INSURANCE Member Subscriber Plan / Payer (Ef fective for All Dates) Name:Ayana Mcdaniels Member ID:Not on file Relation to Subscriber:Not on file Name:AYANA MCDANIELS Subscriber ID:Not on file (Home) Address: [address] [place] [address] Payer ID:Not on file Group ID:Not on file Type:Self Pay Address: [place], [place]
== END 2024-12-19 13:58 | disposition home or self-care (01) ==
PROVIDERS: Visit Provider Psychiatry & Neurology Neurology
DX: I65.23 Occlusion and stenosis of bilateral carotid arteries (principal); G35 Multiple sclerosis; I10 Essential (primary) hypertension; I44.1 Atrioventricular block, second degree; I47.10 Supraventricular tachycardia, unspecified; R40.20 Unspecified coma
CPT/HCPCS: 70250; 70553; 93880; A9579

== ENCOUNTER 2024-12-29 08:36 | Outpatient (CLI) | payer MEDICARE, SELFPAY ==
--- OUTSIDE RECORDS SUMMARY | 2024-12-29 08:56 | XMS_ITS | Clinical Summary ---
Author Organization [facility] [employer] Address [address] [facility] [place] [address] Care Team Providers Care Tailor Apprentice Name Role Phone Unavailable Primary Care Provider Unavailabl e Source Comments [facility],non-owned Affiliates and Associated Physician Practices is amultiple site organization consisting of ambulatory clinics and hospital sitesin [place], [place], [place] and [place]. This disclosure is being madepursuant to the Care Everywhere program and may not contain all information available regarding this patient. Last updated 18.[facility] [employer] Immunizations Immunization Administration Dates Next Due INFLUENZA VACCINE, QUADR. (F LUZONE; FLULAVAL; FLUARIX; AFLURIA QUADRIVALENT; 6MO+), 0.5 ML (IIV4) 06/15/2020 Social History Tobacco Use Types Packs/Day Years Used Date Smoking Tobacco: Never Assessed Comments Unknown Sex and Gender Information Value Date Recorded Sex Assigned at Not on file Legal Sex Female 5:57 AM BOTTLE HOUSE PUMPER Gender Identity Not on file Sexual Orientation [...] patient's age to complete this topic Insurance [facility] SELF PAY NO INSURANCE Member Subscriber Plan / Payer (Ef fective for All Dates) Name:Ayana Mcdaniels Member ID:Not on file Relation to Subscriber:Not on file Name:AYANA MCDANIELS Subscriber ID:Not on file (Home) Address: [facility] [place] [address] Payer ID:Not on file Group ID:Not on file Type:Self Pay Address: [place], [place] * Guarantor: AYANA MCDANIELS Account Type Relation to Patient Date of Phone Billing Address Personal/Family Spouse [facility] [place] [address] [employer] SELF PAY NO INSURANCE Member Subscriber Plan / Payer (Ef fective for All Dates) Name:Ayana Mcdaniels Member ID:Not on file Relation to Subscriber:Not on file Name:AYANA MCDANIELS Subscriber ID:Not on file (Home) Address: [facility] [place] [address] Payer ID:Not on file Group ID:Not on file Type:Self Pay Address: [place], [place] * Guarantor: AYANA MCDANIELS Account Type Relation to Patient Date of Phone Billing Address Personal/Family [facility] [place] [address] [employer] SELF PAY NO INSURANCE Member Subscriber Plan / Payer (Ef fective for All Dates) Name:Ayana Mcdaniels Member ID:Not on file Relation to Subscriber:Not on file Name:AYANA MCDANIELS Subscriber ID:Not on file (Home) Address: [facility] [address] Payer ID:Not on file Group ID:Not on file Type:Self Pay Address: [place], [place] * Guarantor: AYANA MCDANIELS Account Type Relation to Patient Date of Phone Billing Address Personal/Family [address] [place] [place] [place] [address] [employer] SELF PAY NO INSURANCE Member Subscriber Plan / Payer (Ef fective for All Dates) Name:Ayana Mcdaniels Member ID:Not on file Relation to Subscriber:Not on file Name:AYANA MCDANIELS Subscriber ID:Not on file (Home) Address: [address] [place] [place] [id number] Payer ID:Not on file Group ID:Not on file Type:Self Pay Address: [place], [place] * Guarantor: AYANA MCDANIELS Account Type Relation to Patient Date of Phone Billing Address Personal/Family [address] [place] [place] [address] [employer] SELF PAY NO INSURANCE Member Subscriber Plan / Payer (Ef fective for All Dates) Name:Ayana Mcdaniels Member ID:Not on file Relation to Subscriber:Not on file Name:AYANA MCDANIELS Subscriber ID:Not on file (Home) Address: [address] [place] [address] Payer ID:Not on file Group ID:Not on file Type:Self Pay Address: [place]
--- OUTSIDE RECORDS SUMMARY | 2024-12-29 08:56 | XMS_ITS | Referral Summary ---
Author Organization [facility] [address] [facility] 162 Address [address] [place] [address] Care Team Providers Care Server Cashier Name Role Phone Karen Ardon MD Primary Care Provider Encounters Date Type Department Care Team Description 10/24/2024 Telephone [facility] Medical Group Cardiology [address] [place] [address] Vlad Acosta MD 10/24/2024 10:00 AM CEO & BOARD DIRECTOR Ancillary Procedure [facility] Medical Group Cardiology at [address] [place] [address] PAC (premature atrial contraction) from Last 3 [...] 40 mg tabletIndications: Coronary artery disease involving [place] coronary artery of [place] heart without angina pectoris,Mixed hyperlipidemia Take 1 tablet (40 mg total) by mouth daily 90 tablet 3 5 Active rosuvastatin (CRESTOR) 40 mg tabletIndications: Coronary artery disease involving [place] coronary artery of [place] heart without angina pectoris,Mixed hyperlipidemia TAKE 1 TABLET BY MOUTH DAILY 90 tablet 3 4 12/10/19 25 Discontin ued(Reord er) rosuvastatin (CRESTOR) 40 mg tabletIndications: Coronary artery disease involving [place] coronary artery of [place] heart without angina pectoris,Mixed hyperlipidemia Take 1 tablet (40 mg total) by mouth daily 90 tablet 3 5 12/10/19 25 Discontin ued(Reord er) Active Problems Problem Noted Date Diagnosed Date Class 2 obesity without serious comorbidity in a dult 02/05/2022 TRINI (obstructive sleep apnea) 01/24/2021 Coronary artery disease invo lving [place] coronary artery of [place] heart without angina pectoris 01/10/2020 Essential hypertension [...] on file Legal Sex Female 8:07 PM CEO & BOARD DIRECTOR Gender Identity Not on file Sexual Orientation Not on file Last Filed Vital Signs Vital Sign Reading Time Taken Comments Blood Pressure 138/88 09/29/2024 11:25 AM CEO & BOARD DIRECTOR Pulse 64 09/29/2024 11:25 AM CEO & BOARD DIRECTOR Temperature - - Respiratory Rate - - Oxygen Saturation 96% 09/29/2024 11:25 AM CEO & BOARD DIRECTOR Inhaled Oxygen Concentration - - Weight 91.2 kg (201 lb) 09/29/2024 11:25 AM CEO & BOARD DIRECTOR Height 162.6 cm (5' 4 ) 09/29/2024 11:25 AM CEO & BOARD DIRECTOR Body Mass Index 34.5 09/29/2024 11:25 AM CEO & BOARD DIRECTOR Plan of Treatment Not on file Procedures Procedure Name Priority Date/Time Associated Diagnosis Comments HOLTER MONITOR 24 HR Routine 10/24/2024 11:01 AM CEO & BOARD DIRECTOR PAC (premature atrial contraction) from Last 3 Months Results * 24 HR Holter Monitor (10/24/2024 11:01 AM CEO & BOARD DIRECTOR) Anatomical Region Laterality Modality Electrocardiogra phy Narrative 11/01/2024 7:04 AM CEO & BOARD DIRECTOR AMBULATORY CREDIT CONTROL CLERK REPORT Patient Name: Ayana Pennington Date of : 1960 Requesting Physician: Dave Date of interpretation: 11/01/24 Type of monitor : 24 hour Holter Date of the study/Enrollment period: October 24, 2024 Indication: Follow-up AV node dysfunction Quality of the study: Favorable Interpretation: The basic rhythm is sinus with normal [place] QRS and QT intervals. The heart rate [...] was used to complete this document, therefore, manager creative services variances may occur. Vlad Acosta MD [facility] 11/01/24 Vlad Acosta MD CV CARDIAC SERVICES PROC EDURES Final Result from Last 3 Months Insurance [facility] Address: [address] [address] [place] [address] MEDICARE [facility] Address: [address] [address] [place] [address] [facility] [facility] HMO/PPO Address: [address] [place] [address] MEDICARE [facility] MEDICARE SUPPLEMENT Care Teams Server Cashier Relationship Specialty Start Date End Date Karen Ardon MD PCP - General Family Practice 12/03/18
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
--- NOTE | 2024-12-29 09:52 | ECHO_ITS ---
Patient Info Name: Ayana Pennington Age: 64 years : 1960 Gender: Female Ht: 64 in Wt: 205 lbs BSA: 2.09 m2 HR: 59 bpm BP: 154 / 85 mmHg Technical Quality: Good Exam Date: 12/29/2024 10:05 AM Exam Location: Echo Lab Patient Status: Outpatient Admit Date: 12/29/2024 Staff Ordering Physician: Esther Crain MD Machine Ii Trimmer: China Brown RDCS Attending Provider: Esther Crain MD Referring Physician: Breann LUJAN; Exam Type: CA echo doppler w bubble study Study Info Indications I35.0 - Nonrheumatic aortic (valve) stenosis Complete two-dimensional, color flow and Doppler transthoracic echocardiogram is performed with agitated saline. Contrast/Agitated Saline Contrast/Ag. Saline: Agitated Saline Amount: 12.00 ml IV Access Condition: patent with no signs of infiltration New IV Access: Left Site Condition: IV removed Summary 1. There is normal biventricular size and systolic function. 2. There are no significant valvular abnormalities. 3. Agitated saline study did not show qkpoe-ml-togg shunting. The atrial septum is normal. 4. The left atrium is severely dilated. The right atrium is dilated. Left Ventricle The left ventricle is normal in size and systolic function. The left ventricular ejection fraction is visually estimated to be 65-70%. There are no regional wall motion abnormalities. Right Ventricle The right ventricle is normal in size and systolic function. Left Atria The left atrium is severely dilated. Right Atria The right atrium is mildly dilated. Atrial Septum Agitated saline study did not show [id number] shunting. The atrial septum is normal. Aortic Valve The aortic valve is trileaflet and opens well. There is no aortic regurgitation. Pulmonic Valve The pulmonic valve is normal. There is trace pulmonic valve regurgitation. Mitral Valve The mitral valve is normal. There is trace mitral regurgitation. Tricuspid Valve The tricuspid valve is normal. There is trace tricuspid regurgitation. Pericardium/Pleural Pericardium is normal in appearance with no evidence for significant pericardial effusion. Inferior Vena Cava Normal inferior vena cava with >50% collapse upon inspiration consistent with normal right atrial pressure, 3 mmHg. Aorta The aortic root at the level of the sinus of Valsalva measures 3.3 cm in diameter. Left Ventricular Outflow Tract Name Value Normal LVOT 2D LVOT Diameter 1.9 cm LVOT Doppler LVOT Peak Gradient 6 mmHg LVOT Mean Gradient 3 mmHg LVOT VTI 30 cm LVOT VTI/AV VTI Ratio 0.8 LVOT Stroke Volume 81 ml LVOT CO 12.8 l/min LVOT CI 6.1 l/min/m2 Pulmonic Valve Name Value Normal PV Doppler PV Peak Gradient 3 mmHg Mitral Valve Name Value Normal MV Doppler MV Decel Coos 312 cm/s2 MV PHT 84 ms MV Area (PHT) 2.6 cm2 4.0-5.0 MV Diastolic Function MV E Peak Velocity 90 cm/s MV A Peak Velocity 64 cm/s MV E/A 1.4 MV Decel Time 288 ms MV Annular TDI MV E/e' (Septal) 11.2 <=8.0 MV E/e' (Lateral) 8.9 <=8.0 MV E/e' (Average) 10.1 Tricuspid Valve Name Value Normal TV Regurgitation Doppler TR Peak Velocity 248 cm/s TR Peak Gradient 25 mmHg Estimated PAP/RSVP RA Pressure 3 mmHg <=5 PA Systolic Pressure 28 mmHg <36 RV Systolic Pressure 28 mmHg <36 Aorta Name Value Normal Ascending Aorta Ao Root Diameter (MM) 3.1 cm Ao Root Diam Index (MM) 1.5 cm/m2 Aortic Valve Name Value Normal AV Doppler AV Peak Velocity 137 cm/s AV Peak Gradient 7 mmHg AV Mean Gradient 5 mmHg AV VTI 37 cm AV Area (Cont Eq VTI) 2.2 cm2 >=3.0 AV Area (Cont Eq Prosper) 2.4 cm2 AV Regurgitation 2D LVOT Area 2.7 cm2 Ventricles Name Value Normal LV Dimensions 2D/MM IVS Diastolic Thickness (2D) 1.0 cm 0.6-1.0 LVID Diastole (2D) 4.7 cm 3.8-5.2 LVIW Diastolic Thickness (2D) 0.8 cm 0.6-0.9 LVID Systole (2D) 2.9 cm 2.2-3.5 LVOT Diameter 1.9 cm LV Mass (2D Cubed) 141.84 g 67.00-162.00 LV Mass Index (2D Cubed) 68 g/m2 43-95 Relative Wall Thickness (2D) 0.36 LV Fractional Shortening/Ejection Fraction 2D/MM LV Fractional Shortening (2D) 37 % 27-45 LV EF (2D Teicholz) 67 % 54-74 LV Diastolic Volume (4C MOD) 98 ml LV EF (4C MOD) 66 % LV Diastolic Volume (2C MOD) 100 ml LV EF (2C MOD) 70 % LV Diastolic Volume (BP MOD) 101 ml 46-106 LV Diastolic Volume Index (BP MOD) 48 ml/m2 29-61 LV Systolic Volume (BP MOD) 32 ml 14-42 LV Systolic Volume Index (BP MOD) 15 ml/m2 8-24 LV EF (BP MOD) 69 % 54-74 LV Diastolic Length (4C) 7.8 cm LV Systolic Length (4C) 6.2 cm LV Stroke Volume (4C MOD) 65 ml RV Dimensions 2D/MM RVID Diastole (2D) 4.0 cm 2.5-3.5 Atria Name Value Normal LA Dimensions LA Dimension (MM) 4.1 cm 2.7-3.8 LA Volume (4C A-L) 99 ml LA Volume (BP A-L) 97 ml RA Dimensions RA Area (4C) 20.4 cm2 <=18.0 Report Signatures
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
== END 2024-12-29 08:37 | disposition home or self-care (01) ==
PROVIDERS: Visit Provider Psychiatry & Neurology Neurology
DX: I35.0 Nonrheumatic aortic (valve) stenosis (principal); R40.20 Unspecified coma; I10 Essential (primary) hypertension; I44.1 Atrioventricular block, second degree; I47.10 Supraventricular tachycardia, unspecified; Z87.828 Personal history of other (healed) physical injury and trauma
CPT/HCPCS: 93306; 95816; 96375

== ENCOUNTER 2025-04-27 10:18 | Outpatient (CLI) | payer MEDICARE, SELFPAY ==
--- OUTSIDE RECORDS SUMMARY | 2025-04-27 10:58 | XMS_ITS | Clinical Summary ---
Author Organization [facility] Address [address] [place] [address] Care Team Providers Care Children Librarian Name Role Phone Unavailable Primary Care Provider Unavailabl e Source Comments [facility],non-owned Affiliates and Associated Physician Practices is amultiple site organization consisting of ambulatory clinics and hospital sitesin [place], [place], [place] and [place]. This disclosure is being madepursuant to the Care Everywhere program and may not contain all information available regarding this patient. Last updated 18.[facility] Immunizations Immunization Administration Dates Next Due INFLUENZA VACCINE, QUADR. (F LUZONE; FLULAVAL; FLUARIX; AFLURIA QUADRIVALENT; 6MO+), 0.5 ML (IIV4) 06/15/2020 Social History Tobacco Use Types Packs/Day Years Used Date Smoking Tobacco: Never Assessed Comments Unknown Sex and Gender Information Value Date Recorded Sex Assigned at Not on file Legal Sex Female 5:57 AM PRODUCTION SERVICE MANAGER Gender Identity Not on file Sexual [...] season) 2024 DEPRESSION SCREENING 09/07/2024 INFLUENZA VACCINE (#1) 2025 06/15/2020 Respiratory Syncytial Virus (RSV) Vaccine Pt: or [...] patient's age to complete this topic [place] [address] [facility] SELF PAY NO INSURANCE Member Subscriber Plan / Payer (Ef fective for All Dates) Name:Ayana Mcdaniels Member ID:Not on file Relation to Subscriber:Not on file Name:AYANA MCDANIELS Subscriber ID:Not on file (Home) Address: [facility] [place] [address] Payer ID:Not on file Group ID:Not on file Type:Self Pay Address: [place] SELF PAY NO INSURANCE Member Subscriber Plan / Payer (Ef fective for All Dates) Name:Ayana Mcdaniels Member ID:Not on file Relation to Subscriber:Not on file Name:AYANA MCDANIELS Subscriber ID:Not on file (Home) Address: [address] [address] Payer ID:Not on file Group ID:Not on file Type:Self Pay Address: [place], [place] * Guarantor: MCDANIELSAYANA Account Type Relation to Patient Date of Phone Billing Address Personal/Family [address] [address] [employer] SELF PAY NO INSURANCE Member Subscriber Plan / Payer (Ef fective for All Dates) Name:Ayana Mcdaniels Member ID:Not on file Relation to Subscriber:Not on file Name:AYANA MCDANIELS Subscriber ID:Not on file (Home) Address: [facility] [address] Payer ID:Not on file Group ID:Not on file Type:Self Pay Address: [place], [place] * Guarantor: AYANA MCDANIELS Account Type Relation to Patient Date of Phone Billing Address Personal/Family [address] [address] [employer] SELF PAY NO INSURANCE Member Subscriber Plan / Payer (Ef fective for All Dates) Name:Ayana Mcdaniels Member ID:Not on file Relation to Subscriber:Not on file Name:AYANA MCDANIELS Subscriber ID:Not on file (Home) Address[address] Payer ID:Not on file Group ID:Not on file Type:Self Pay Address: [place], [place] * Guarantor: AYANA MCDANIELS Account Type Relation to Patient Date of Phone Billing Address Personal/Family [address] [id number] [employer] SELF PAY NO INSURANCE Member Subscriber Plan / Payer (Ef fective for All Dates) Name:Ayana Mcdaniels Member ID:Not on file Relation to Subscriber:Not on file Name:AYANA MCDANIELS Subscriber ID:Not on file (Home) Address: [address] [place] [address] Payer ID:Not on file Group ID:Not on file Type:Self Pay Address: [place]
--- OUTSIDE RECORDS SUMMARY | 2025-04-27 10:58 | XMS_ITS | Encounter Summary ---
Author Organization [facility] Healthcare Address [address] [place] [address] Care Team Providers Care Headlight Assembler Name Role Phone Karen Ardon MD Primary Care Provider Encounter Details Date Type Department Care Team (Late st Contact Info) Description 12/29/2024 Orders Only [facility] Health Information Management [address] [place] [id number] Scanning, Provider Social History Tobacco Use Types Packs/Day Years [...] on file Legal Sex Female 8:07 PM ETIOLOGIST Gender Identity Not on file Sexual Orientation Not on file documented as of this encounter Plan of Treatment Not on file documented as of this encounter Procedures Procedure Name Priority Date/Time Associated Diagnosis Comments CARDIOLOGY DOCUMENT SCAN 12/29/2024 documented in this encounter Results * Cardiology Document Scan (12/29/2024) Anatomical Region Laterality Modality Other us Provider Scanning CV CARDIAC SERVICES PROCEDURES Final Result documented in this encounter Visit Diagnoses Not on filedocumented in this encounter Care Teams Headlight Assembler Relationship Specialty Start Date End Date Karen Ardon MD PCP - General Family Practice 12/03/18 documented as of this encounter
--- OUTSIDE RECORDS SUMMARY | 2025-04-27 10:59 | XMS_ITS | Encounter Summary ---
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 Gender Identity Not on file Sexual Orientation Not on file documented as of this encounter Plan of Treatment Not on file documented as of this encounter Procedures Procedure Name Priority Date/Time Associated Diagnosis Comments SCAN - RADIOLOGY/IMAGING 12/19/2024 documented in this encounter Results * SCAN - RADIOLOGY/IMAGING (12/19/2024) Anatomical Region Laterality Modality Other us Provider Scanning Final Result documented in this encounter Visit Diagnoses Not on filedocumented in this encounter Care Teams Nursery Nurse Relationship Specialty Start Date End Date Karen Ardon MD PCP - General Family Practice 12/03/18 documented as of this encounter
--- OUTSIDE RECORDS SUMMARY | 2025-04-27 10:59 | XMS_ITS | Clinical Summary ---
Author Organization [facility] [address] Address [address] [place] [address] Care Team Providers Care Forest Fire Management Officer Name Role Phone Karen Ardon MD Primary Care Provider Allergies No known active allergies Medications aspirin 81 mg enteric coated tablet Take 1 tablet (81 mg total) by mouth daily Active multivit-min/iron/f olic/lutein (CENTRUM SILVER WOMEN ORAL) Active cholecalciferol (VITAMIN D-3) 2000 unit tablet Active alendronate (Fosamax) 70 mg tablet 2 Active neomycin-polymyxin- dexAMETHasone (MAXITROL) 3.5mg/mL-10,000 unit/mL-0.1 % ophthalmic suspension 3 Active rosuvastatin (CRESTOR) 40 mg tabletIndications:C oronary artery disease involving [place] coronary artery of [place] heart without angina pectoris,Mixed hyperlipidemia Take 1 tablet (40 mg total) by mouth daily 90 tablet 3 5 Active hydroCHLOROthiazide 12.5 mg tablet Take 1 tablet (12.5 mg total) by mouth daily 5 Active Active Problems Problem Noted Date Diagnosed Date Class 2 obesity without serious comorbidity in a dult 02/05/2022 TRINI (obstructive sleep apnea) 01/24/2021 Coronary artery disease invo lving [place] coronary artery of [place] heart without angina pectoris 01/10/2020 Essential hypertension 01/10/2020 Mixed hyperlipidemia 01/10/2020 Palpitations 01/10/2020 PAC (premature atrial contraction) 01/10/2020 Pre-diabetes 01/10/2020 Bradycardia 01/10/2020 Resolved Problems Problem Noted Date Diagnosed Date Resolved Date Preoperative cardiovascular examination 01/24/2021 02/05/2022 Gross hematuria 01/11/2020 01/24/2021 Morbid obesity with BMI of 40.0-44.9, adult 01/10/2020 02/05/2022 Surgical History Surgery Date Site/Laterality Comments TOTAL [...] Quiroz Valvular heart disease Brother 1 Derrell Blands Atrial fibrillation Brother 2 Alcohol abuse Father Gordy Quiroz COPD Father Gordy Quiroz Arthritis Mother Phyllis Quiroz Hypertension Mother Phyllis Quiroz Relation Name Status Comments Brother 1 Derrell Quiroz Alive Brother 2 Alive Father Gordy Quiroz (Age 79) Mother Phyllis Quiroz Alive Social History Tobacco Use Types Packs/Day Years Used Date Smoking Tobacco: Former Cigarettes 1.5 15 0 02/05/1973 - 11/13/1980 Smokeless Tobacco: Never Tobacco Cessation:Counseling Given: Not Answered Alcohol Use Standard Drinks/Week Comments Yes 0 (1 standard drink = 0.6 oz pur e alcohol) AUDIT-C Answer Date Recorded Frequency of Alcohol Consumption Monthly or less 01/14/2019 Average Number of Drinks 1 or 2 019 Frequency of Binge Drinking Never 01/05 Comments Unknown Sex and Gender Information Value Date Recorded Sex Assigned at Not on file 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 Gender Identity Not on file Sexual Orientation Not on file Obstetrics History Last Filed Vital Signs Vital Sign Reading Time Taken Comments Blood Pressure 148/86 01/09/2025 10:56 AM CDT Pulse 58 01/09/2025 10:56 AM CDT Temperature - - Respiratory Rate - - Oxygen Saturation 92% 01/09/2025 10:56 AM CDT Inhaled Oxygen Concentration - - Weight 93.9 kg (207 lb) 01/09/2025 10:56 AM CDT Height 162.6 cm (5' 4) 01/09/2025 10:56 AM CDT Body Mass Index 35.53 01/09/2025 10:56 AM CDT Plan of Treatment Health Maintenance Due Date Last Done Comments Breast Cancer Screening-Mammogram 1960 Colon Cancer Screening-Colonoscopy 1960 Depression Screening 1960 Fall Risk Assessment 1960 Hepatitis C Screening 1960 Osteoporosis Screening-Bone Density Scan 1960 Hepatitis B Screening 1976 Pneumococcal vaccine 65+ (1 of 1 - PCV) 2008 Zoster Vaccine (1 of 2) 2008 Well Visit 65+ 2023 Influenza Vaccine (#1) 2025 06/15/2020 DTaP/Tdap/Td Vaccine (2 - Td or Tdap) 04/14/202604/2016 Insurance [facility] H[facility]/PPO Address: [address] [address] [place] [address] MEDICARE [facility] Address: [address] [address] [place] [address] [facility] [employer] HMO/PPO Address: [address] [place] [address] MEDICARE [facility] MEDICARE SUPPLEMENT Care Teams Forest Fire Management Officer Relationship Specialty Start Date End Date Karen Ardon MD PCP - General Family Practice 12/03/18
[2025-04-27 13:13] LABS: Alanine Aminotransferase 18 U/L (6-35); Albumin Level 4.2 g/dL (3.5-5.1); Alkaline Phosphatase 59 U/L (38-126); Anion Gap 3 mmol/L (4-12); Aspartate Amino Transferase 42 U/L (14-36); Bilirubin,Total 0.5 mg/dL (0.2-1.3); Blood Urea Nitrogen 27 mg/dL (7-17); Calcium 9.5 mg/dL (8.4-10.2); Carbon Dioxide 31 mmol/L (22-30); Chloride 106 mmol/L (98-107); Estimated Glomerular Filt Rate > 60; Glucose 88 mg/dL (65-110); Potassium 4.4 mmol/L (3.4-5.0); Sodium 140 mmol/L (137-145); Total Protein 7.0 g/dL (6.3-8.2)
[2025-04-27 13:29] LABS: Hemoglobin A1C 5.6 % (<5.7)
== END 2025-04-27 10:19 | disposition home or self-care (01) ==
LOC: ANHGOSHLAB 10:19
PROVIDERS: PCP Family Medicine; Visit Provider Family Medicine
DX: R73.03 Prediabetes (principal); I10 Essential (primary) hypertension
CPT/HCPCS: 36415; 80053; 83036

== ENCOUNTER 2025-04-27 10:33 | Outpatient (CLI) | payer MEDICARE, SELFPAY ==
--- NOTE | ~2025-04-27 | XR_ITS ---
XR cervical spine 4-5V 04/27/2025 11:16 Indication: Radiculopathy. Numbness. Procedure: 5 views cervical spine Comparison: No prior studies for comparison. Findings: There is disc narrowing at C5-6 and C6-7 with marginal osteophytes. Vertebral body heights are maintained. There is multilevel uncinate and facet hypertrophy most advanced at C5-6 and C6-7. No alteration of alignment with flexion/extension. No prevertebral soft tissue abnormality. No fracture or traumatic malalignment. Impression: 1: Moderate cervical spondylosis. Reviewed, dictated and finalized at location O. Impression: 1: Moderate cervical spondylosis.
== END 2025-04-27 10:34 | disposition home or self-care (01) ==
PROVIDERS: PCP Family Medicine; Visit Provider Family Medicine
DX: M47.22 Other spondylosis with radiculopathy, cervical region (principal)
CPT/HCPCS: 72050

== ENCOUNTER 2025-06-24 09:43 | Emergency (ER) | payer MEDICARE, SELFPAY ==
--- NOTE | ~2025-06-24 | XR_ITS ---
Examination: XR elbow RT min 3V, XR shoulder RT min 2V Clinical History: GLF, pain Comparison: None Technique: 2 views right shoulder, 4 views right elbow Findings/impression: Right shoulder: 1. No fracture or dislocation. Right elbow: 1. Comminuted and displaced fracture of distal humerus with dislocation of elbow joint. Reviewed, dictated and finalized at location R.
--- NOTE | ~2025-06-24 | XR_ITS ---
Examination: XR hip RT min 2V Clinical History: GLF, pain Comparison: 12/14/2023 Technique: 2 views right hip Findings/impression: 1. Right hip arthroplasty intact without associated fracture or dislocation. 2. No other acute abnormality identified. Reviewed, dictated and finalized at location R.
[2025-06-24 09:44] VITALS: BP 146/73; PULSE 67; RESP 16; TEMP 36.6; O2SAT 99
--- NOTE | 2025-06-24 10:10 | ED.UPPEXIN ---
HPI - Extremity Injury (Upper) General Chief Complaint: Extremity Injury, Upper Stated Complaint: fall, R elbow injury Time Seen by Provider: 06/24/25 09:59 History of Present Illness HPI narrative: This is a 64-year-old female with history of Raynaud's, CPAP now, hypertension, hyperlipidemia, CAD who presents to the ED for a fall. Patient states that she was well walking up her concrete steps when she slipped and fell onto her right side landing on her right elbow and right hip. She was unable to get up due to the pain and so EMS was notified. Patient currently complains of right elbow pain. She has no right hip pain but notes that she had both for her hips replaced and she is concerned about the replacement. Denies hitting her head, loss conscious. Denies numbness, tingling. Related Data Home Medications ?Medication ?Instructions ?Recorded ?Confirmed ?Last Taken ?Type hhbyzukl-fcpy-mxhd 8 mg-folic 400 1 tablet PO DAILY 09/26/19 06/20/25 01/09/24 History mcg-K 50 mcg-lutein 300 mcg tablet (Centrum Silver Women) aspirin 81 mg tablet,delayed 81 mg PO DAILY 09/12/20 06/20/25 01/11/24 History release cholecalciferol (vitamin D3) 50 50 mcg PO QAM 09/12/20 06/20/25 01/09/24 History mcg (2,000 unit) capsule rosuvastatin 40 mg tablet 40 mg PO QHS 10/03/21 06/20/25 01/11/24 History alendronate 70 mg tablet 70 mg PO WEEKLY 04/02/22 06/20/25 01/09/24 History mgcfqsja-vxmprfhed-amrmpupi 3.5 1 drp EACH EYE HS 09/21/23 06/20/25 01/11/24 History mg/mL-10,000 unit/mL-0.1% eye drops Allergies Allergy/AdvReac Type Severity Reaction Status Date / Time No Known Allergies Allergy Verified 06/24/25 09:48 Review of Systems Review of Systems: Gen.: Denies fevers or chills Eyes: Denies eye pain or visual change ENT: Denies congestion Respiratory: Denies shortness of breath or cough CV: Denies chest pain or palpitations GI: Denies abdominal pain nausea, emesis or diarrhea denies burning, urgency, frequency or hematuria Musculoskeletal: As per HPI Neuro: Denies numbness, tingling, weakness or focal weakness Skin: Denies rash Except as documented, all other systems reviewed and negative [facility] Past Medical History Medical History Episodic headache Loss of consciousness Second degree heart block Intracranial hypertension, benign GERD without esophagitis Paroxysmal SVT (supraventricular tachycardia) Hearing loss Wears glasses History of adverse reaction to anesthesia Osteopenia Vitamin D deficiency CAD in [place] artery (~2018) PVC (premature ventricular contraction) Raynaud's disease without gangrene TRINI (obstructive sleep apnea) GERD without esophagitis Essential (primary) hypertension Decreased hearing of left ear Dyslipidemia Edema of both lower legs due to peripheral venous insufficiency Surgical History Surgical History History of left cataract surgery (~06/2024) History of repair of hiatal hernia (~01/2024) Robotic assisted laparoscopic paraesophageal hernia repair with mesh, 270 degree fundoplication 01/12/24 History of total left hip arthroplasty (~05/2022) History of tonsillectomy (Unknown) History of ear surgery (~2005) left History of total right hip replacement (~12/2018) History of tympanoplasty (~2010) Left Family History Family History Father Hypertension Family history of arthritis Other High cholesterol Social History Social History Social History: Caffeine-decaf coffee Smoking packs per day: 1 Smoking cigarettes per day: 20.0 Years smoked: 15 Smoking pack-years: 15.00 Smoking status: Former smoker Tobacco type: cigarettes Second hand tobacco smoke exposure: No Smoking end date: 09/07/87 Additional smoking assessment comments: PT DENIES ALL FORMS OF TABACCO USE Alcohol intake: never Alcohol use details: STATES VERY RARE 1-2 GLASSES OF WINE/YEAR Substance use: never Substance use type: does not use Do You Feel Safe in your Home?: Yes Lack of Transportation: No Lack of Food: Never True Current Housing: I Have Housing Concerned About Future Housing: No Difficulty Paying Gas/Electric Bills: No Difficulty Paying for Meds: No Currently Unemployed: No Education: Master's Degree or Higher Difficulty w/ Childcare or Family Care: No Living arrangements: with family Additional living arrangements comments: PT'S DAUGHTER & MOM LIVES WITH PT Occupation/Education: occupation Gender identity (if verbalized by the patient): Female Sexual Orientation (if Verbalized by the Patient): Straight or Heterosexual Spiritual care concerns: No Agree to blood products: Yes Exam Narrative: APPEARANCE: No acute distress, nontoxic, resting in bed EYES: EOMI HEENT: Normocephalic, atraumatic, OMM RESPIRATORY: No respiratory distress Clear to auscultation bilaterally with no rhonchi wheezing or rales. CARDIOVASCULAR: Regular rate and rhythm without murmurs rubs or gallops. ABDOMINAL: Soft, nontender, nondistended, no rebound or guarding MUSCULOSKELETAl: Right upper extremity braced against abdomen. There is a small abrasion over the olecranon, bleeding controlled. Tenderness palpation over the olecranon and the distal humerus. Pain with minimal passive range of motion. Neurovascularly intact distally. NEURO: Awake and alert. Following commands, speech normal, no focal deficits SKIN:: Warm, dry. No rashes lesions or abrasions PSYCHIATRIC: Normal affect/mood, Course Vital Signs Vital signs: Vital Signs Temperature 97.9 F 06/24/25 09:44 Pulse Rate 67 06/24/25 09:44 Respiratory Rate 16 06/24/25 09:44 Blood Pressure 146/73 H 06/24/25 09:44 Pulse Oximetry 99 06/24/25 09:44 Oxygen Delivery Room Air 06/24/25 09:44 Temperature 97.9 F 06/24/25 09:44 Pulse Rate 67 06/24/25 09:44 Respiratory Rate 16 06/24/25 09:44 Blood Pressure 146/73 H 06/24/25 09:44 Pulse Oximetry 99 06/24/25 09:44 Oxygen Delivery Room Air 06/24/25 09:44 MDM - Extremity Injury (Upper) MDM Narrative Medical decision making narrative: 64-year-old female presenting for fall. On initial evaluation, patient was mild distress, afebrile, hemodynamically stable. She did have a swollen ecchymotic and tender right elbow. X-rays were obtained and did reveal a comminuted and displaced right supracondylar fracture with elbow dislocation. I did discuss this case with Dr. Nix, Orthopedic surgery, recommends placing a splint and transferring to trauma center. Splint was placed. I spoke with the trauma center and Dr. Farley, EM, will accept patient in ED to ED transfer. Patient was transferred in a stable condition. Differential Diagnosis Differential diagnosis: Likely other (fracture, sprain, strain, contusion) Medical Records Attestation: I reviewed the patient's medical records. Lab Data Attestation: I reviewed the patient's lab results. 06/24/25 12:22 06/24/25 12:22 Labs: Lab Results 06/24/25 Range/Units 12:22 WBC 9.8 (4.5-10.0) K/mm3 RBC 5.42 H (4.2-5.4) M/mm3 Hgb 15.0 (12.0-15.0) g/dL Hct 44.8 (37.0-47.0) % MCV 82.7 (80-100) fl MCH 27.7 (26-34) pg MCHC 33.5 (32-36) g/dl RDW 14.7 H (11.5-14.5) % Plt Count 187 (150-375) k/mm3 MPV 10.3 (7.4-10.4) fl Immature Gran % (Auto) 0.5 (0-0.5) % Neut % (Auto) 75.1 H (45.5-73.1) % Lymph % (Auto) 16.7 L (18.3-44.2) % Sharkey % (Auto) 5.9 (2.6-8.5) % Eos % (Auto) 1.5 (0-4.4) % Baso % (Auto) 0.3 (0.2-1.2) % Lymph # (Auto) 1.64 (0.9-3.2) K/mm3 Sharkey # (Auto) 0.6 (0.1-0.6) K/mm3 Eos # (Auto) 0.2 (0-0.3) K/mm3 Baso # (Auto) 0.0 (0.0-0.1) K/mm3 Abs Immat Gran (auto) 0.05 H (0.00-0.031) K/mm3 Absolute Neuts (auto) 7.4 H (1.3-6.7) K/mm3 Absolute Nucleated RBC 0.000 (0.0-0.012) K/mm3 Nucleated RBC % 0.0 (0.0-0.2) % Sodium 135 L (137-145) mmol/L Potassium 3.7 (3.4-5.0) mmol/L Chloride 102 (98-107) mmol/L Carbon Dioxide 25 (22-30) mmol/L Anion Gap 8 (4-12) mmol/L BUN 25 H (7-17) mg/dL Creatinine 0.74 (0.7-1.0) mg/dL Estim Creat Clear Calc 73 ml/min Estimated GFR > 60 (59 - ) Glucose 116 H (65-110) mg/dL Calcium 9.2 (8.4-10.2) mg/dL Total Bilirubin 0.7 (0.2-1.3) mg/dL AST 32 (14-36) U/L ALT 22 (6-35) U/L Alkaline Phosphatase 71 (38-126) U/L Total Protein 7.3 (6.3-8.2) g/dL Albumin 4.2 (3.5-5.1) g/dL Imaging Data Attestation: I personally reviewed and interpreted this imaging study as follows: Radiologist's impression: Elbow x-ray: Comminuted and displaced supracondylar fracture with dislocation of the elbow Shoulder x-ray: No acute fractures Hip x-ray: No fractures, hardware is intact Discharge Plan Discharge Clinical Impression: Supracondylar fracture of humerus Qualifiers: Encounter type: initial encounter Fracture type: closed Laterality: right Qualified Code(s): S42.411A - Displaced simple supracondylar fracture without intercondylar fracture of right humerus, initial encounter for closed fracture Dislocation of elbow Qualifiers: Encounter type: initial encounter Laterality: right Qualified Code(s): S53.104A - Unspecified dislocation of right ulnohumeral joint, initial encounter Patient Disposition: Acute Care Hospital Condition: Serious Patient Language: [place] Prescriptions: No Action aspirin 81 mg tablet,delayed release (DR/EC) 81 mg PO DAILY Patient Comments: QAM neomycin-polymyxin B-dexameth 3.5mg/mL-10,000 unit/mL-0.1 % drops,suspension 1 drp EACH EYE HS Centrum Silver Women 8 mg iron-400 mcg-300 mcg tablet 1 tablet PO DAILY Patient Comments: QAM rosuvastatin 40 mg tablet 40 mg PO QHS cholecalciferol (vitamin D3) 50 mcg (2,000 unit) capsule 50 mcg PO QAM alendronate 70 mg tablet 70 mg PO WEEKLY Patient Comments: TAKES ON SATURDAYS Rx Instructions: TAKES ON SATURDAYS hydrochlorothiazide 12.5 mg tablet 12.5 mg PO DAILY Qty: 90 1RF amoxicillin 500 mg capsule 2,000 mg PO ONCE PRN (Reason: dental work up) Qty: 12 1RF Follow-up/Referrals: Whitney rAdon MD [Primary Care Provider, Family Practice]
[2025-06-24] MEDS: oxyCODONE HCL (*CRX) 5 MG TAB IR PO (10:18)
[2025-06-24] MEDS: HYDROmorphone HCL INJ (*CRX) 1 MG/ML SYR 0.5 MG IV PUSH (11:53)
[2025-06-24 12:28] LABS: Hematocrit 44.8 % (37.0-47.0); Hemoglobin 15.0 g/dL (12.0-15.0); Immature Granulocyte Percent A 0.5 % (0-0.5); Lymphocytes Absolute Auto 1.64 K/mm3 (0.9-3.2); Mean Corpuscular HGB Conc 33.5 g/dl (32-36); Mean Corpuscular Hemoglobin 27.7 pg (26-34); Mean Corpuscular Volume 82.7 fl (80-100); Nucleated Red Blood Cells Absolute Auto 0.000 K/mm3 (0.0-0.012); Nucleated Red Blood Cells Perc 0.0 % (0.0-0.2); Platelet Count Result 187 k/mm3 (150-375); Red Blood Count 5.42 M/mm3 (4.2-5.4); White Blood Count 9.8 K/mm3 (4.5-10.0)
[2025-06-24 12:50] LABS: Alanine Aminotransferase 22 U/L (6-35); Albumin Level 4.2 g/dL (3.5-5.1); Alkaline Phosphatase 71 U/L (38-126); Anion Gap 8 mmol/L (4-12); Aspartate Amino Transferase 32 U/L (14-36); Bilirubin,Total 0.7 mg/dL (0.2-1.3); Blood Urea Nitrogen 25 mg/dL (7-17); Calcium 9.2 mg/dL (8.4-10.2); Carbon Dioxide 25 mmol/L (22-30); Chloride 102 mmol/L (98-107); Estimated CRCL calculation 73 ml/min; Estimated Glomerular Filt Rate > 60; Glucose 116 mg/dL (65-110); Potassium 3.7 mmol/L (3.4-5.0); Sodium 135 mmol/L (137-145); Total Protein 7.3 g/dL (6.3-8.2)
== END 2025-06-24 13:01 | disposition short-term general hospital (02) ==
PROVIDERS: Emergency Provider Student in an Organized Health Care Education/Training Program; PCP Family Medicine
DX: S42.411A Displaced simple supracondylar fracture without intercondylar fracture of right humerus, initial encounter for closed fracture (principal); I10 Essential (primary) hypertension; I73.00 Raynaud's syndrome without gangrene; I25.10 Atherosclerotic heart disease of native coronary artery without angina pectoris; I87.2 Venous insufficiency (chronic) (peripheral); E78.5 Hyperlipidemia, unspecified; E55.9 Vitamin D deficiency, unspecified; K21.9 Gastro-esophageal reflux disease without esophagitis; M85.80 Other specified disorders of bone density and structure, unspecified site; G47.33 Obstructive sleep apnea (adult) (pediatric); Z96.643 Presence of artificial hip joint, bilateral; Z98.42 Cataract extraction status, left eye; Z87.891 Personal history of nicotine dependence; W10.9XXA Fall (on) (from) unspecified stairs and steps, initial encounter
CPT/HCPCS: 36415; 73030; 73080; 73502; 80053; 85025; 96374; 99285; A9270; J1171

== ENCOUNTER 2025-08-12 09:32 | Emergency (ER) | payer MEDICARE, SELFPAY ==
--- NOTE | 2025-08-12 09:35 | ED_ITS ---
HPI - Female Genitourinary General Chief complaint: Urogenital-Female Stated complaint: Fever/Uti Symptoms Time Seen by Provider: 08/12/25 09:34 Source: patient Mode of arrival: ambulatory Limitations: no limitations History of Present Illness HPI Narrative: patient is a 64-year-old female who presents with fever and concern for UTI. Patient had surgery to debride infection in arm 9 days ago at [facility] Patient is currently taking Keflex. Was on Bactrim prior to surgery. Patient now experiencing diarrhea and vaginal irritation. Patient has had intermittent fever ever since surgery. MD elicited complaint: dysuria Related Data Home Medications ?Medication ?Instructions ?Recorded ?Confirmed ?Last Taken ?Type vewpwmzp-zsfk-efmo 8 mg-folic 400 1 tablet PO DAILY 07/04/25 01/09/24 History mcg-K 50 mcg-lutein 300 mcg tablet (Centrum Silver Women) aspirin 81 mg tablet,delayed 81 mg PO DAILY 09/12/20 1 01/11/24 History release cholecalciferol (vitamin D3) 50 50 mcg PO QAM 09/12/20 07/04/25 01/09/24 History mcg (2,000 unit) capsule rosuvastatin 40 mg tablet 40 mg PO QHS 10/03/2101/11/24 History alendronate 70 mg tablet 70 mg PO WEEKLY 04/02/2201/09/24 History uagjtuvt-beznfrpxx-ctpidmre 3.5 1 drp EACH EYE HS 09/0707/04/25 01/11/24 History mg/mL-10,000 unit/mL-0.1% eye drops acetaminophen 500 mg tablet 500 mg PO Q6H PRN pain 07/20/25 Unknown History (Tylenol Extra Strength) polyethylene glycol 3350 17 gram 17 g PO DAILY 5 07/20/25 Unknown History oral powder packet (Miralax) sennosides 8.6 mg tablet (senna) 8.6 mg PO DAILY 07/0407/20/25 Unknown History cephalexin 500 mg capsule mg 08/12/25 Unknown History Allergies Allergy/AdvReac Type Severity Reaction Status Date / Time No Known Allergies Allergy Verified 08/12/25 09:39 Review of Systems Review of Systems: All systems reviewed & are unremarkable except as noted in HPI and below Constitutional: Constitutional: Denies chills, Denies fever(s), Denies headache(s), Denies malaise and Denies weakness Eyes: Eyes: Denies change in vision, Denies eye discharge and Denies irritation ENT: Denies otalgia, Denies headache(s), Denies nasal congestion, Denies nasal discharge, Denies sinus pain and Denies sore throat Cardiovascular: Cardiovascular: Denies chest pain, Denies edema, Denies palpitations and Denies dyspnea Respiratory: Respiratory: Denies cough and Denies dyspnea Gastrointestinal: Gastrointestinal: Denies abdominal pain, Reports diarrhea, Denies nausea and Denies vomiting Genitourinary: Genitourinary: Denies hematuria, Denies nocturia, Denies dysuria, Denies flank pain, Denies urinary urgency, Reports vaginal discharge and Reports vaginal pruritus Musculoskeletal: Musculoskeletal: Denies back pain and Denies numbness Integumentary/Breasts: Skin/Breast: Denies pruritus and Denies rash Neurologic: Denies headache(s), Denies numbness and Denies weakness Psychiatric: Psychiatric: Reports no additional psychiatric complaints Endocrine: Endocrine: Denies palpitations PMFSH Past Medical History Medical History Episodic headache Loss of consciousness Second degree heart block Intracranial hypertension, benign GERD without esophagitis Paroxysmal SVT (supraventricular tachycardia) Hearing loss Wears glasses History of adverse reaction to anesthesia Osteopenia Vitamin D deficiency CAD in [place] artery (~2018) PVC (premature ventricular contraction) Raynaud's disease without gangrene TRINI (obstructive sleep apnea) GERD without esophagitis Essential (primary) hypertension Decreased hearing of left ear Dyslipidemia Edema of both lower legs due to peripheral venous insufficiency Surgical History Surgical History History of elbow surgery (~06/2025) ORIF of right distal supracondylar humerus fracture with complex intra- articular reconstruction and olecranon osteotomy History of left cataract surgery (~06/2024) History of repair of hiatal hernia (~01/2024) Robotic assisted laparoscopic paraesophageal hernia repair with mesh, 270 degree fundoplication 01/12/24 History of total left hip arthroplasty (~05/2022) History of tonsillectomy (Unknown) History of ear surgery (~2005) left History of total right hip replacement (~12/2018) History of tympanoplasty (~2010) Left Family History Family History Father Hypertension Family history of arthritis Other High cholesterol Social History Social History Social History: Caffeine-decaf coffee Smoking packs per day: 1 Smoking cigarettes per day: 20.0 Years smoked: 15 Smoking pack-years: 15.00 Smoking status: Former smoker Second hand tobacco smoke exposure: No Smoking end date: 09/07/87 Additional smoking assessment comments: PT DENIES ALL FORMS OF TABACCO USE Alcohol intake: never Alcohol use details: STATES VERY RARE 1-2 GLASSES OF WINE/YEAR Substance use: never Substance use type: does not use Lack of Transportation: No Lack of Food: Never True Current Housing: I Have Housing Concerned About Future Housing: No Difficulty Paying Gas/Electric Bills: No Difficulty Paying for Meds: No Currently Unemployed: No Education: Master's Degree or Higher Difficulty w/ Childcare or Family Care: No Living arrangements: with family Additional living arrangements comments: PT'S DAUGHTER & MOM LIVES WITH PT Occupation/Education: occupation Gender identity (if verbalized by the patient): Female Sexual Orientation (if Verbalized by the Patient): Straight or Heterosexual Spiritual care concerns: No Agree to blood products: Yes Comments At time of signature, agree with nursing past medical, surgical, social and family history. There is no relevant family history pertinent to the presenting complaint. Exam Const: General: cooperative, healthy appearing, comfortable, no acute distress and well nourished Nutritional Appearance: well nourished Orien tation/consciousness: patient oriented x3 HENMT: Head: normocephalic and atraumatic Ears: external ears normal Face/Nose/Sinus: Normal external nose present, Normal nares present and normal facial exam Face and sinus: normal facial exam Eyes: General: appearance normal, both eyes and all related structures Pupils: Equal, round and reactive pupils present EOM: EOMs intact bilaterally Neck: Neck: normal visual inspection, full ROM and supple Chest: Chest palpation & inspection: normal inspection of the chest Resp: Effort & Inspection: normal respiratory effort and able to speak in complete sentences Cardio: Rate: regular rate Rhythm: regular rhythm GI: Inspection: normal to inspection GI Palp: No abdominal tenderness and Yes Soft to palpation : General: Yes no CVA tenderness Back/Spine/Pelvis: Back: no CVA tenderness Skin: General skin exam: normal color and no rashes or lesions noted Neuro: General: patient oriented x3 and moves all extremities Cranial nerves: Yes Equal, round and reactive pupils present Extrem: General: normal to inspection and full ROM Psych: Appearance: grossly normal and well kempt Course Course Emergency Course: Patient is aware of diagnosis, understands and agrees to treatment plan. Anticipatory guidance given. Patient agrees to follow-up as directed and is aware of reasons to seek care at the emergency department. Portions of this record may have been created with voice recognition software Level of Care: Express Care Visit Vital Signs Vital signs: Vital Signs Temperature 37.0 C 08/12/25 09:45 Pulse Rate 102 H 08/12/25 09:45 Respiratory Rate 16 08/12/25 09:45 Blood Pressure 165/91 H 08/12/25 09:45 Pulse Oximetry 100 08/12/25 09:45 Temperature 37.0 C 08/12/25 09:45 Pulse Rate 102 H 08/12/25 09:45 Respiratory Rate 16 08/12/25 09:45 Blood Pressure 165/91 H 08/12/25 09:45 Pulse Oximetry 100 08/12/25 09:45 MDM MDM Narrative Medical decision making narrative: Based on symptoms Will treat for vaginal yeast infection. Will send urine off for culture was a precaution. Patient has been on 2 different antibiotics that should have treated UTI if that was present. Patient is very anxious due to concern for infection which most likely contributed to to high blood pressure and high heart rate. Discussed return to [facility] ED criteria for concern on post op infection Pt well hydrated appearing, in no respiratory distress, hemodynamically stable. Recommend supportive care. The patient is stable at time of discharge the clinical impression was discussed and the patient was given the opportunity to ask questions, which were addressed as completely as possible given the information available at present. Anticipatory guidance and return to care precautions were discussed and the importance of primary care follow-up was stressed and encouraged. The patient voiced understanding of the plan, indications to return, and the need for follow-up. Exam findings show no acute concerns or changes Patient is appropriate for outpatient treatment and follow-up. Differential Diagnosis Differential Diagnosis: Differential diagnostic considerations for female urogenital? issues include urinary tract infection, bacterial vaginosis, cervicitis, ovarian cyst, vaginitis, STI exposure, ovarian torsion, ectopic , cyst of Bartholin?s gland, cystitis, dysmenorrhea.?? Medical Records I have reviewed the following patient records and this information was taken into consideration when formulating the assessment and plan.: previous clinic visits Lab Data MDM Lab Attestation statement: I personally reviewed the patient's lab results. Labs: Lab Results 08/12/25 Range/Units 09:50 POC Urine Color Yellow POC Urine Clarity Clear POC Urine pH 6.5 POC Ur Specif [place] 1.010 POC Urine Protein Negative (Negative) POC Ur Glucose (UA) Negative (Negative) POC Urine Ketones Negative (Negative) POC Urine Blood Trace (Negative) POC Urine Nitrite Negative (Negative) POC Urine Bilirubin Negative (Negative) POC Urine Urobilinogen 0.2 POC U Leukocyte Esteras Negative (Negative) Discharge Plan Discharge Clinical Impression: Vaginal yeast infection Patient Disposition: Home Condition: Stable Instructions: Yeast Infection (ED) Additional Instructions: Take 1 pill today and in 3 days take additional pill. Do not use any scented soaps, tampons or pads. Make sure to always urinate after sex. Use non scented, non flavored condoms. Do not sit and bath with scented soaps or oils. Where cotton underwear and change underwear after exercise. Your blood pressure was elevated above 120/80 today at Urgent Care. This puts you above the threshold for follow up visit with a primary care provider. High blood pressure does not usually cause any symptoms, however it may lead to kidney failure, stroke, heart disease just to name a few if untreated . Many people are anxious when seeing a provider or nurse. As a result, you are not diagnosed with hypertension at this time unless your blood pressure is persistently high at two office visits at least one week apart. Some things that can help lower blood pressure are lifestyle modifications, such as light exercise, decreased salt in diet, and weight loss. It is important to follow up with a PCP about this within 1 week. Patient Language: Swedish Prescriptions: New fluconazole 150 mg tablet 150 mg PO ONCE Qty: 2 0RF Rx Instructions: as a single dose after antibiotics are complete. If symptoms persist, take second dose 3 days later. No Action aspirin 81 mg tablet,delayed release (DR/EC) 81 mg PO DAILY Patient Comments: QAM neomycin-polymyxin B-dexameth 3.5mg/mL-10,000 unit/mL-0.1 % drops,suspension 1 drp EACH EYE HS cephalexin 500 mg capsule Centrum Silver Women 8 mg iron-400 mcg-300 mcg tablet 1 tablet PO DAILY Patient Comments: QAM rosuvastatin 40 mg tablet 40 mg PO QHS cholecalciferol (vitamin D3) 50 mcg (2,000 unit) capsule 50 mcg PO QAM alendronate 70 mg tablet 70 mg PO WEEKLY Patient Comments: TAKES ON SATURDAYS Rx Instructions: TAKES ON SATURDAYS sennosides [senna] 8.6 mg tablet 8.6 mg PO DAILY polyethylene glycol 3350 [Miralax] 17 gram powder in packet 17 g PO DAILY acetaminophen [Tylenol Extra Strength] 500 mg tablet 500 mg PO Q6H PRN (Reason: pain) hydrochlorothiazide 12.5 mg tablet 12.5 mg PO DAILY Qty: 90 1RF amlodipine 5 mg tablet 5 mg PO DAILY Qty: 90 1RF Follow-up/Referrals: Whitney Ardon MD [Primary Care Provider, Family Practice] - 3 Days Time of Disposition: 10:52
[2025-08-12 09:45] VITALS: BP 165/91; PULSE 102; RESP 16; TEMP 37; O2SAT 100
[2025-08-12 09:53] LABS: EDUAAPPEAR Clear; EDUABILI Negative (Negative); EDUABLOOD Trace (Negative); EDUACOLOR1 Yellow; EDUAGLUCOSE Negative (Negative); EDUAKETONE Negative (Negative); EDUALEUKO Negative (Negative); EDUANITRATE Negative (Negative); EDUAPH 6.5; EDUAPROTEIN Negative (Negative); EDUASPGRAVITY 1.010; EDUAUROBILI 0.2
== END 2025-08-12 10:54 | disposition home or self-care (01) ==
PROVIDERS: Emergency Provider Nurse Practitioner Family; PCP Family Medicine
DX: B37.31 Acute candidiasis of vulva and vagina (principal); I25.10 Atherosclerotic heart disease of native coronary artery without angina pectoris; I44.1 Atrioventricular block, second degree; I10 Essential (primary) hypertension; E78.5 Hyperlipidemia, unspecified; K21.9 Gastro-esophageal reflux disease without esophagitis; I73.00 Raynaud's syndrome without gangrene; M85.80 Other specified disorders of bone density and structure, unspecified site; Z96.643 Presence of artificial hip joint, bilateral; Z79.82 Long term (current) use of aspirin
CPT/HCPCS: 81003; 87086; 99213; G0463